=== PATIENT | female | born 1945 | race Caucasian/White ===

== ENCOUNTER → 2019-09-14 | Outpatient (CLI) | payer MEDICARE, OTHER, SELFPAY ==
[2019-09-14 12:43] LABS: D-Dimer Quantitative (DVT/PE) 1.06 FEU/ug/m (0.27-0.49)
[2019-09-14 12:49] LABS: BNP,B-Type NATRIURETIC PEPTIDE 225.6 pg/mL (0-100)
== END | disposition home or self-care (01) ==
PROVIDERS: PCP Internal Medicine; Referring Provider Nurse Practitioner; Visit Provider Nurse Practitioner
DX: R06.02 Shortness of breath (principal); R60.0 Localized edema
CPT/HCPCS: 83880; 85379

== ENCOUNTER → 2019-09-19 12:54 | Outpatient (CLI) | payer MEDICARE, OTHER, SELFPAY ==
--- NOTE | 2019-09-19 13:05 | VDLE_ITS ---
Reason For Study: Positive D-dimer, BLE edema RIGHT LEFT GSV is normal. GSV is normal. CFV is compressible, spontaneous, competent CFV is compressible, spontaneous, competent, and demonstrates pulsatile venous flow. and demonstrates pulsatile venous flow. FV is compressible, spontaneous, competent FV is compressible, spontaneous, competent and demonstrates pulsatile venous flow. and demonstrates pulsatile venous flow. POP V is compressible, spontaneous, competent POP V is compressible, spontaneous, competent and demonstrates pulsatile venous flow. and demonstrates pulsatile venous flow. T/P Trunk is compressible. T/P Trunk is compressible. PTV is compressible. PTV is compressible. RT PerV is compressible. LT PerV is compressible. Procedure Exam performed in department. A preliminary report was called and/or faxed to [place]. Interpretation Summary Deep veins of the lower extremities are bilaterally patent and compressible segmentally. There is no evidence of deep vein thrombosis on either side. Valvular competence appears intact within the proximal deep venous systems bilaterally. The great saphenous veins appear bilaterally patent and compressible segmentally. Pulsatile flow is noted in the deep venous system bilaterally, which may be indicative of elevated central venous pressure (i.e. congestive heart failure, tricuspid valve insufficiency, etc.). Clinical correlation is advised. Ordering Physician: Mirza Singh Referring Physician: Mirza Sinhg Performed By: Kristie Grace RVT
== END ==
PROVIDERS: PCP Internal Medicine; Referring Provider Internal Medicine; Visit Provider Internal Medicine
DX: R60.0 Localized edema (principal); R79.89 Other specified abnormal findings of blood chemistry
CPT/HCPCS: 93970

== ENCOUNTER 2020-07-23 11:27 | Outpatient (RCR) | payer MEDICARE, OTHER, SELFPAY | END 2020-07-23 23:59 | LOC: IMMUN 11:27 | PROVIDERS: PCP Internal Medicine; Visit Provider Family Medicine | DX: Z23 Encounter for immunization (principal) | CPT/HCPCS: 0011A; 0012A ==

== ENCOUNTER 2020-10-08 19:59 | Inpatient (IN) | payer MEDICARE, OTHER, SELFPAY ==
[2020-10-08 20:00] VITALS: BP 148/85; PULSE 49; RESP 16; TEMP 36.1; O2SAT 96; BMI 25.4
--- NOTE | 2020-10-08 20:44 | EKG12_ITS ---
Test Reason : DYSRHYTHMIA Blood Pressure : / mmHG Vent. Rate : 050 BPM Atrial Rate : 034 BPM P-R Int : 000 ms QRS Dur : 100 ms QT Int : 418 ms P-R-T Axes : 000 051 019 degrees QTc Int : 381 ms Atrial fibrillation with slow ventricular response Nonspecific ST and T wave abnormality Abnormal ECG Confirmed by IVÁN HERRERA, AB ([id number]), non linear editor JOSEPH HORAN ([id number]) on 10/09/2020 10:11:55 AM Referred By: Confirmed By:AB MINOR MD
--- NOTE | 2020-10-08 20:52 | RAD_ITS ---
INDICATION: chest pain, light headed and dizzy, bradycardia in PCP office today. EXAMINATION/TECHNIQUE: X-RAY - XR Chest 1 View COMPARISON: None. FINDINGS: The lungs are clear. The cardiomediastinal silhouette is unremarkable. No pleural effusion or pneumothorax. No acute osseous abnormalities. Degenerative changes of the right shoulder. RAD/Chest 1 View (Portable) IMPRESSION: No acute radiographic abnormalities. Electronically Signed: Ramone Díaz MD at 21:27 EDT Tel , Service support ,
[2020-10-08 20:58] LABS: Absolute Lymphocyte Count 2.16 X10^3/uL (0.83-4.51); Absolute Neutrophil Count 2.9 X10^3/uL (2.0-7.7); Basophil# 0.04 X10^3/uL; Basophil% 0.6 % (0-1); Eosinophils% 4.9 % (0-5); Hematocrit 46.1 % (37-47); Hemoglobin 14.7 g/dL (12.0-15.0); Lymphocyte # 2.16 X10^3/ul (0.83-4.51); Mean Corp Hgb Conc 31.9 g/dL (32-36); Mean Corpuscular Volume 94.1 fL (81-99); Mean Platelet Vol. 12.3 fl (6.2-12.0); Monocyte# 0.79 X10^3/uL; Monocyte% 12.8 % (0-10); NRBC Flagged by Analyzer 0 % (0-5); Neutrophil # 2.87 X10^3/uL (2.7-7.7); Neutrophil % 46.5 % (47-70); Platelet Count 116 K/mm3 (150-450); RBC Distribution Width CV 12.6 % (11.6-14.6); RBC Distribution Width SD 43.8 fl (35.1-43.9); White Blood Count 6.2 K/mm3 (4.4-11.0)
[2020-10-08 21:04] VITALS: BP 123/77; PULSE 54; RESP 18; O2SAT 95
[2020-10-08 21:11] LABS: Anion Gap 5 (5-15); BUN 18 mg/dL (7-18); BUN/Creat Ratio 14.4 RATIO (10-20); Calcium,Total 9.7 mg/dL (8.5-10.1); Chloride 107 mmol/L (98-107); Creatinine, Serum 1.25 mg/dL (0.55-1.02); EST Glomerular Filtration Rate 44 mL/min (>60); Est Glom Filt Rate - Afr Amer 54 mL/min (>60); Estimated Creatinine Clearance 33.58 ml/min; Glucose 152 mg/dL (74-106); Potassium 3.5 mmol/L (3.5-5.1); Sodium Level 140 mmol/L (136-145)
[2020-10-08 22:00] VITALS: BP 122/78; PULSE 48; RESP 16; O2SAT 96
--- NOTE | 2020-10-08 22:18 | PCM.HP.STD ---
HPI - General HPI Narrative CARMELITA KASPER, is a 75 F who presents with dizziness. Patient states that earlier today she saw her revenue specialist who informed her that she would need a residential monitor due to bradycardia and that she may need a pacemaker. Patient also states that her revenue specialist told her if she began to be dizzy to go to the nearest ER which is why patient presents tonight. EKG performed in ER shows atrial fibrillation with a heart rate 49-58. Patient denies cough, chest pain, shortness of breath, vision changes. [facility] Medical History Congestive heart failure (CHF) Diabetes Kidney disease Osteoporosis Home Medications atorvastatin [Lipitor] 10 mg PO DAILY 10/08/20 [History Last Taken Unknown] biotin 1 mg PO DAILY 10/08/20 [History Last Taken Unknown] calcium carbonate-vitamin D3 [Caltrate 600 plus D] 1 tab PO DAILY 10/08/20 [History Last Taken Unknown] dapagliflozin [Farxiga] 5 mg PO DAILY 10/08/20 [History Last Taken Unknown] furosemide 20 mg PO DAILY 10/08/20 [History Last Taken Unknown] potassium chloride 10 meq PO DAILY 10/08/20 [History Last Taken Unknown] Allergy/AdvReac Type Severity Reaction Status Date / Time amlodipine [From Norvasc] Allergy Other Verified 10/08/20 20:07 benzoyl peroxide Allergy Swelling Verified 10/08/20 20:07 cetylpyridinium chloride Allergy Other Verified 10/08/20 20:07 Sulfa (Sulfonamide Allergy Other Verified 10/08/20 20:07 Antibiotics) lisinopril AdvReac Other Verified 10/08/20 20:07 mesalamine [From Asacol] AdvReac Vomiting Verified 10/08/20 20:07 nabumetone [From Relafen] AdvReac Vomiting Verified 10/08/20 20:07 Social History Smoking Status: Never smoker ROS Constitutional Constitutional: Denies anorexia, chills, fatigue or weakness Cardiovascular Cardiovascular: Reports dizziness; Denies chest pain, claudication, palpitations or syncope Respiratory/Chest Respiratory/Chest: Denies cough, hemoptysis, shortness of breath at rest or shortness of breath with exertion Gastrointestinal Gastrointestinal: Denies abdominal pain, constipation, diarrhea, nausea or vomiting Genitourinary Genitourinary: Denies dysuria Musculoskeletal Musculoskeletal: Denies back pain, extremity pain or joint pain Integumentary Integumentary: Denies dry skin Neurologic Neurologic: Denies abnormal gait or abnormal speech Psychiatric Psychiatric: Denies anxiety or depression Endocrine Endocrinology: Denies change in body appearance Hematologic/Lymphatic Hematologic/Lymphatic: Denies easy bleeding or easy bruising Vital Signs Vital Signs Vital Signs: 10/08/20 20:00 10/08/20 20:11 10/08/20 20:47 Temperature 97.0 F L Temperature Source Temporal Pulse Rate 49 L Respiratory Rate 16 Respiratory Effort Normal Respiratory Pattern Normal Blood Pressure 148/85 H Blood Pressure Mean 106 Pulse Ox 96 Oxygen Delivery Method Room Air Room Air 10/08/20 21:04 10/08/20 22:00 Temperature Temperature Source Pulse Rate 54 L 48 L Respiratory Rate 18 16 Respiratory Effort Respiratory Pattern Blood Pressure 123/77 H 122/78 H Blood Pressure Mean 92 92 Pulse Ox 95 96 Oxygen Delivery Method Room Air Room Air Physical Exam Const alert and oriented x3 General Appearance: cooperative HEENT head/scalp atraumatic Eyes PERRL Neck supple, no JVD and thyroid normal General: trachea midline Lymph Lymphatic: no lymphadenopathy noted Resp normal respiratory effort, normal air movement and clear to auscultation bilaterally Cardio S1 normal heart sound, S2 normal heart sound and peripheral pulses 2+ throughout Rhythm: abnormal rhythm irregularly irregular (Variable heart rate 49-58) GI normal to inspection, nondistended, normoactive bowel sounds and soft to palpation Extremity normal capillary refill and no clubbing, cyanosis or edema General Extremity: no tenderness to palpation of joints or extremities Skin General Skin Exam: no breakdown and turgor normal Lesions: no lesions Rashes: no rashes Neuro CN's II-XII intact bilaterally Psych thought process normal, cooperative and affect normal Appearance: appropriate Lab / Micro Data Result Diagrams: 10/08/20 20:20 10/08/20 20:20 Labs: Laboratory Results - last 24 hr 10/08/20 10/08/20 20:20 20:20 WBC 6.2 RBC 4.90 Hgb 14.7 Hct 46.1 MCV 94.1 MCH 30.0 MCHC 31.9 L RDW Std Deviation 43.8 RDW Coeff of Young 12.6 Plt Count 116 L MPV 12.3 H Immature Gran % (Auto) 0.200 Neut % (Auto) 46.5 L Lymph % (Auto) 35.0 [place] % (Auto) 12.8 H Eos % (Auto) 4.9 Baso % (Auto) 0.6 Absolute Neuts (auto) 2.9 Absolute Lymphs (auto) 2.16 Nucleated RBC % 0 Sodium 140 Potassium 3.5 Chloride 107 Carbon Dioxide 28.0 Anion Gap 5 BUN 18 Creatinine 1.25 H Estim Creat Clear Calc 33.58 Est GFR (MDRD) Af Amer 54 L Est GFR (MDRD) Non-Af 44 L BUN/Creatinine Ratio 14.4 Glucose 152 H Calcium 9.7 Troponin I < 0.015 Radiology Impression Chest X-Ray 10/08/20 20:52 IMPRESSION: No acute radiographic abnormalities. Electronically Signed: Ramone Díaz MD at 21:27 EDT Tel , Service support , Assessment & Plan Assessment/Plan (1) Dizziness: (2) Bradycardia: (3) Chronic kidney disease, stage 3a: (4) Diabetes mellitus type 2 in nonobese: PLAN: -Admit to PCU overnight for observation and cardiac monitoring -Consult cardiology for evaluation for pacemaker -CBC and BMP in a.m. -Check magnesium and TSH now -Continue home medications for chronic diseases- -AC at bedtime blood sugars with sliding scale insulin ordered -N.p.o. at midnight -Vital signs and oxygen per protocol -Increase daily potassium chloride to 20 mEq DVT Prophylaxis-not indicated, observation status This patient was seen by Trisha Galindo NP-C under the supervision of Dr. Dr. Rick.
--- NOTE | 2020-10-08 22:19 | EX.ED.DYSGE1 ---
HPI History of Present Illness Chief Complaint: Dizziness Informant: patient Narrative Narrative: 75-year-old female presenting with dizziness. Patient states she was seen by her pet training instructor's office earlier today and was noted to have low heart rate. At that time she was asymptomatic. The plan was to set her up for a monitor at home. They advised her to come to the emergency department if she developed dizziness or syncope. She states she now feels dizzy and near syncopal. Denies syncope. She states she had mild chest pain as well. Denies other complaints. Recent Illness/Hospitalization: No [facility] Medical History (Updated 10/08/20 @ 22:[address] Yeny Kate MD) Congestive heart failure (CHF) Diabetes Kidney disease Osteoporosis Home Medications atorvastatin [Lipitor] 10 mg PO DAILY 10/08/20 [History Last Taken Unknown] biotin 1 mg PO DAILY 10/08/20 [History Last Taken Unknown] calcium carbonate-vitamin D3 [Caltrate 600 plus D] 1 tab PO DAILY 10/08/20 [History Last Taken Unknown] dapagliflozin [Farxiga] 5 mg PO DAILY 10/08/20 [History Last Taken Unknown] furosemide 20 mg PO DAILY 10/08/20 [History Last Taken Unknown] potassium chloride 10 meq PO DAILY 10/08/20 [History Last Taken Unknown] Allergy/AdvReac Type Severity Reaction Status Date / Time amlodipine [From Norvasc] Allergy Other Verified 10/08/20 20:07 benzoyl peroxide Allergy Swelling Verified 10/08/20 20:07 cetylpyridinium chloride Allergy Other Verified 10/08/20 20:07 Sulfa (Sulfonamide Allergy Other Verified 10/08/20 20:07 Antibiotics) lisinopril AdvReac Other Verified 10/08/20 20:07 mesalamine [From Asacol] AdvReac Vomiting Verified 10/08/20 20:07 nabumetone [From Relafen] AdvReac Vomiting Verified 10/08/20 20:07 Social History Smoking Status: Never smoker ROS ROS ED Constitutional Constitutional ED: Denies fever(s) Eyes Eyes: Denies change in vision ENT ENT ED: Denies rhinorrhea or sore throat Cardiovascular Cardiovascular: Reports chest pain; Denies palpitations Respiratory/Chest Respiratory/Chest: Denies cough or dyspnea Gastrointestinal Gastrointestinal: Denies abdominal pain, diarrhea, nausea or vomiting Genitourinary Genitourinary ED: Denies dysuria Musculoskeletal Musculoskeletal: Denies myalgias Integumentary Denies rash Neurologic Neurologic: Denies headache(s) Psychiatric Psychiatric: Denies suicidal thoughts EXAM Physical Exam Const Vital Signs: 10/08/20 20:00 10/08/20 20:11 10/08/20 20:47 Temperature 97.0 F L Temperature Source Temporal Pulse Rate 49 L Respiratory Rate 16 Respiratory Effort Normal Respiratory Pattern Normal Blood Pressure 148/85 H Blood Pressure Mean 106 Pulse Ox 96 Oxygen Delivery Method Room Air Room Air 10/08/20 21:04 10/08/20 22:00 Temperature Temperature Source Pulse Rate 54 L 48 L Respiratory Rate 18 16 Respiratory Effort Respiratory Pattern Blood Pressure 123/77 H 122/78 H Blood Pressure Mean 92 92 Pulse Ox 95 96 Oxygen Delivery Method Room Air Room Air Positive well nourished and well developed General Appearance ED: well developed HEENT Reports normocephalic and head/scalp atraumatic Eyes PERRL and EOMs intact bilaterally Neck supple General: Negative for tenderness Chest Wall inspection of chest normal Resp normal respiratory effort and clear to auscultation bilaterally Cardio Rate: bradycardia Rhythm: abnormal rhythm GI non-tender and non-distended Palpation: soft; Negative for guarding or rebound tenderness present no CVA tenderness Extremity normal to inspection Neuro oriented x3 Sensorium / Orientation: alert Psych mental status grossly normal MDM MDM MDM Narrative Medical decision making narrative: Patient presents with symptomatic bradycardia. She is hemodynamically stable. Discussed with hospitalist for observation. Lab Data Attestation: I reviewed the patient's lab results. Labs: Laboratory Results - last 24 hr 10/08/20 10/08/20 20:20 20:20 WBC 6.2 RBC 4.90 Hgb 14.7 Hct 46.1 MCV 94.1 MCH 30.0 MCHC 31.9 L RDW Std Deviation 43.8 RDW Coeff of Young 12.6 Plt Count 116 L MPV 12.3 H Immature Gran % (Auto) 0.200 Neut % (Auto) 46.5 L Lymph % (Auto) 35.0 [place] % (Auto) 12.8 H Eos % (Auto) 4.9 Baso % (Auto) 0.6 Absolute Neuts (auto) 2.9 Absolute Lymphs (auto) 2.16 Nucleated RBC % 0 Sodium 140 Potassium 3.5 Chloride 107 Carbon Dioxide 28.0 Anion Gap 5 BUN 18 Creatinine 1.25 H Estim Creat Clear Calc 33.58 Est GFR (MDRD) Af Amer 54 L Est GFR (MDRD) Non-Af 44 L BUN/Creatinine Ratio 14.4 Glucose 152 H Calcium 9.7 Troponin I < 0.015 Radiography Chest X-Ray - ED: 1 View, Read by ED Physician and Read by Radiologist Diagnostic Testing: Radiology Impression Chest X-Ray 10/08/20 20:52 IMPRESSION: No acute radiographic abnormalities. Electronically Signed: Ramone Díaz MD at 21:27 EDT Tel , Service support , EKG Initial EKG: Attestation: I personally reviewed and interpreted this EKG as follows: Comments: Bradycardia and irregular Prior EKG tracings: not available for review Discharge Plan Triage Chief Complaint: Dizziness ED Provider: Yeny Kate Dx/Rx/DC Orders Clinical Impression: Symptomatic bradycardia Prescriptions: No Action atorvastatin [Lipitor] 10 mg tablet 10 mg PO DAILY RF: 0 potassium chloride 10 mEq tablet extended release 10 meq PO DAILY RF: 0 furosemide 20 mg tablet 20 mg PO DAILY RF: 0 biotin 1 mg capsule 1 mg PO DAILY RF: 0 Caltrate 600 plus D 600 mg (1,500 mg)-800 unit tablet,chewable 1 tab PO DAILY RF: 0 Farxiga 5 mg tablet 5 mg PO DAILY RF: 0 Primary Care Provider: Mirza Singh Referrals: Mirza Singh MD [Primary Care Provider] - Disposition Disposition: Acute Care Hospital [facility]
[2020-10-08 23:00] VITALS: BP 108/87; PULSE 53; RESP 16; O2SAT 95
[2020-10-08 23:10] LABS: Magnesium 2.7 mg/dL (1.6-2.6); Thyroid Stim Hormone (TSH) 7.55 uIU/mL (0.358-3.74)
[2020-10-09] VITALS (14 sets, daily range): BP systolic 92–136; BP diastolic 41–79; PULSE 45–69; RESP 16–18; TEMP 36.5–36.9; O2SAT 95–99; BMI 25.0
[2020-10-09 05:38] LABS: Absolute Lymphocyte Count 2.11 X10^3/uL (0.83-4.51); Basophil# 0.04 X10^3/uL; Basophil% 0.6 % (0-1); Eosinophil# 0.31 X10^3/uL; Hematocrit 42.3 % (37-47); Hemoglobin 13.6 g/dL (12.0-15.0); Lymphocyte # 2.11 X10^3/ul (0.83-4.51); Mean Corp Hgb Conc 32.2 g/dL (32-36); Mean Corpuscular Hgb 30.2 pg (27.0-32.0); Mean Platelet Vol. 11.8 fl (6.2-12.0); Monocyte# 0.78 X10^3/uL; Monocyte% 12.6 % (0-10); NRBC Flagged by Analyzer 0 % (0-5); Neutrophil # 2.96 X10^3/uL (2.7-7.7); Neutrophil % 47.6 % (47-70); Platelet Count 106 K/mm3 (150-450); RBC Distribution Width CV 12.6 % (11.6-14.6); RBC Distribution Width SD 43.5 fl (35.1-43.9); White Blood Count 6.2 K/mm3 (4.4-11.0)
[2020-10-09 06:04] LABS: Anion Gap 6 (5-15); BUN 17 mg/dL (7-18); BUN/Creat Ratio 15.2 RATIO (10-20); Chloride 109 mmol/L (98-107); Creatinine, Serum 1.12 mg/dL (0.55-1.02); EST Glomerular Filtration Rate 50 mL/min (>60); Est Glom Filt Rate - Afr Amer 61 mL/min (>60); Estimated Creatinine Clearance 37.48 ml/min; Glucose 108 mg/dL (74-106); Potassium 3.6 mmol/L (3.5-5.1); Sodium Level 143 mmol/L (136-145)
[2020-10-09 06:41] LABS: Bedside Glucose 129 mg/dL (70-110)
[2020-10-09] MEDS: Acetaminophen 325 MG Tablet 650 MG PO (07:46)
--- NOTE | 2020-10-09 08:47 | ECHOD_ITS ---
Version 2 Reason For Study: ARRHYTHMIA Procedure This was a 2D Doppler, Color Flow transthoracic echocardiogram. Exam performed portable in patient room. Left Ventricle Normal LV size. Left ventricular systolic function is normal. The estimated ejection fraction is 60 %. No regional wall motion abnormalities noted. Right Ventricle Normal RV size. Normal systolic function. Atria Normal left atrium. Normal right atrium. Mitral Valve Normal mitral valve. Tricuspid Valve Normal tricuspid valve. Mild (1+) tricuspid valve insufficiency. Pulmonary artery systolic pressure is 33 mmHg. Aortic Valve Normal aortic valve. Pulmonic Valve Normal pulmonic valve. Great Vessels Normal aortic root. The pulmonary artery is normal size. Normal inferior vena cava. Pericardium/Pleural No pericardial effusion. MMode/2D Measurements & Calculations LVIDd: 3.9 cm IVSd: 0.97 cm Ao root diam: 2.4 cm LVIDs: 2.7 cm LVPWd: 1.1 cm RVDd: 3.1 cm FS: 30.7 % LAV(MOD-bp): 41.4 ml LA A4 area: 17.6 cm2 LA dimension(2D): 4.0 cm LAV(MOD-bp) Indexed: 24.2 ml/m2 LAV(MOD-sp2): 38.7 ml LAV(MOD-sp4): 44.0 ml RA A4 area: 15.1 cm2 Time Measurements MV dec time: 0.23 sec Doppler Measurements & Calculations MV E max marty: 104.7 cm/sec Lat Peak E' Marty: 9.3 cm/sec Med Peak E' Marty: 5.5 cm/sec MV A max marty: 71.8 cm/sec E/E' lat: 11.3 E/E' med: 19.2 MV E/A: 1.5 Ao V2 max: 148.6 cm/sec LV V1 max: 122.3 cm/sec PA V2 max: 78.1 cm/sec Ao max P.8 mmHg LV V1 max P.0 mmHg TR max marty: 274.8 cm/sec TR max P.2 mmHg ECHO/Echo Complete Interpretation Summary Normal LV size. Left ventricular systolic function is normal. The estimated ejection fraction is 60 %. Mild (1+) tricuspid valve insufficiency. Pulmonary artery systolic pressure is 33 mmHg. Structurally normal valves. Ordering Physician: Shaq Colon Referring Physician: Mirza Singh Performed By: Annie Rodriguez RDCS, RVT
--- NOTE | 2020-10-09 08:47 | PCM.CONS.C ---
Assessment & Plan Assessment/Plan (1) Symptomatic bradycardia: PLAN: Patient presents with symptomatic bradycardia. At this particular time the etiology is unclear but the patient is noted to have an elevated TSH level. I would like us to obtain further studies on the above to see whether correcting her thyroid would improve her symptomatology. I would also like to obtain an echocardiogram to assess her ventricular function. (2) Paroxysmal atrial fibrillation: PLAN: Patient is noted to have atrial fibrillation at this particular time. The exact duration is not entirely clear to me. We will try and obtain records from her carpenter labor supervisor who she saw at the [facility] to see whether this was recorder then. Further recommendations will then be made. She may eventually need a permanent pacemaker implantation and I have discussed this with her. Thank you for allowing me to participate in the care of your patient. Please don't hesitate to call if any issues arise. HPI Consult Data Date of Consult: 10/10/20 HPI Narrative HPI Narrative: CARMELITA KASPER, is a 75 F who presents to the hospital with dizziness and was noted to be bradycardia arrhythmic. She says that she has apparently had this problem for over a year and she was sent by her primary care physician to a carpenter labor supervisor in [place]. He evaluated her and set her up for a follow-up visit. Subsequently she started noticing shortness of breath. She did not have any pedal edema she was put on a diuretic and then followed up as an outpatient. However over the last few days she has noticed that she has been getting increasingly fatigue as well as short of breath. She contacted her primary care physician who asked her to go to the emergency room in the emergency room she was noted to be in atrial fibrillation with a slow ventricular response rate. She was admitted to the telemetry care unit and cardiology was consulted. [facility] Medical History Congestive heart failure (CHF) Diabetes High cholesterol History of stress test Kidney disease Osteoporosis Rheumatoid arthritis Home Medications atorvastatin [Lipitor] 10 mg PO DAILY 10/08/20 [History Last Taken Unknown] biotin 1 mg PO DAILY 10/08/20 [History Last Taken Unknown] calcium carbonate-vitamin D3 [Caltrate 600 plus D] 1 tab PO DAILY 10/08/20 [History Last Taken Unknown] dapagliflozin [Farxiga] 5 mg PO DAILY 10/08/20 [History Last Taken Unknown] furosemide 20 mg PO DAILY 10/08/20 [History Last Taken Unknown] potassium chloride 10 meq PO DAILY 10/08/20 [History Last Taken Unknown] Allergy/AdvReac Type Severity Reaction Status Date / Time amlodipine [From Norvasc] Allergy Other Verified 10/09/20 01:25 benzoyl peroxide Allergy Swelling Verified 10/09/20 01:25 cetylpyridinium chloride Allergy Other Verified 10/09/20 01:25 Sulfa (Sulfonamide Allergy Other Verified 10/09/20 01:25 Antibiotics) lisinopril AdvReac Other Verified 10/09/20 01:25 mesalamine [From Asacol] AdvReac Vomiting Verified 10/09/20 01:25 nabumetone [From Relafen] AdvReac Vomiting Verified 10/09/20 01:25 Social History Smoking Status: Never smoker ROS Constitutional Constitutional: Denies fever(s) or weight loss Eyes Eyes: Reports as per HPI ENT HEENT: Reports as per HPI Cardiovascular Cardiovascular: Reports other Respiratory/Chest Respiratory/Chest: Reports other Gastrointestinal Gastrointestinal: Denies change in bowel habits, nausea, vomiting or weight changes Genitourinary Genitourinary: Denies difficulty urinating Musculoskeletal Musculoskeletal: Denies joint stiffness or muscle weakness Integumentary Integumentary: Denies lesions Neurologic Neurologic: Reports dizziness; Denies syncope Psychiatric Psychiatric: Denies anxiety Endocrine Endocrinology: Denies excessive sweating or fatigue Hematologic/Lymphatic Hematologic/Lymphatic: Denies anemia Allergic/Immunologic Allergic/Immunologic: Denies seasonal rhinorrhea Physical Exam Const oriented x3 and healthy appearing Orientation / Consciousness: awake HEENT normocephalic Eyes PERRL and conjunctivae normal Neck supple, no JVD and no carotid bruits Chest inspection of chest normal Resp normal respiratory effort and clear to auscultation bilaterally Cardio Cardio Narrative: Irregular rate and rhythm Palpation: normal PMI Rate: regular rate Rhythm: abnormal rhythm Heart Sounds: S1 normal and S2 normal Peripheral Pulses: pulses 2+ throughout GI normal to inspection, nondistended, normoactive bowel sounds Extremity normal to inspection and no clubbing, cyanosis or edema Psych mental status grossly normal
[2020-10-09] MEDS: Empagliflozin 10 MG Tablet PO (09:10)
[2020-10-09] MEDS: Furosemide 20 MG Tablet PO (09:10)
[2020-10-09] MEDS: Insulin Lispro 100 UNIT/ML INSULN.PEN SC ×2 (11:04→21:03)
[2020-10-09 11:05] LABS: Bedside Glucose 180 mg/dL (70-110)
[2020-10-09 11:24] LABS: T4 Free Direct 1.07 ng/dL (0.76-1.46); T4 Total, Thyroxin 7.8 ug/dL (4.8-13.9)
[2020-10-09 11:25] LABS: T3 Total - Triiodothyronine 1.06 ng/mL (0.6-1.81)
--- NOTE | 2020-10-09 16:01 | PCM.PN.HOSP ---
Documented by User: James FLOWERS 10/09/20 16:09 Subjective Subjective Patient is a 75-year-old female comfortably resting in bed, alert and oriented x3. Patient denies any change or progression in symptoms this admission. Denies chest pain, shortness of breath, palpitations, fever, chills, N/V/D. Objective Data Objective Data Vital Signs: Vital Signs Temp Pulse Resp BP Pulse Ox 98.1 F 57 L 18 102/52 L 96 10/09/20 15:25 10/09/20 15:25 10/09/20 15:25 10/09/20 15:25 10/09/20 15:25 Oxygen Delivery Method Room Air Weight: 146 lb 2.664 oz Body Mass Index (BMI) 25.0 Orthostatic Vital Signs Start: 10/09/20 01:18 Freq: q24h Status: Active Protocol: Activity Type Activity Date Activity User E-Sign Co-Sign Detail Recorded Client Recorded Date Recorded By Document 10/09/20 01:18 [id number] 10/09/20 01:21 10/09/20 01:18 Orthostatic Vitals Standing -Blood Pressure (90/60-120/80) 134/79 H -Extremity Use Right Arm -Pulse Rate (60-100) 63 Sitting -Blood Pressure (90/60-120/80) 136/74 H -Extremity Use Right Arm -Pulse Rate (60-100) 64 Lying -Blood Pressure (90/60-120/80) 119/74 -Extremity Use Right Arm -Pulse Rate (60-100) 56 L Intake & Output: Intake and Output for Last 24 Hours 10/07/20 10/08/20 10/09/20 23:59 23:59 23:59 Intake Total 360 / 360 Balance 360 / 360 Lab / Micro Data Result Diagrams: 10/09/20 05:00 10/09/20 05:00 Labs: Laboratory Results - last 24 hr 10/08/20 10/08/20 10/08/20 20:20 20:20 20:20 WBC 6.2 RBC 4.90 Hgb 14.7 Hct 46.1 MCV 94.1 MCH 30.0 MCHC 31.9 L RDW Std Deviation 43.8 RDW Coeff of Young 12.6 Plt Count 116 L MPV 12.3 H Immature Gran % (Auto) 0.200 Neut % (Auto) 46.5 L Lymph % (Auto) 35.0 [place] % (Auto) 12.8 H Eos % (Auto) 4.9 Baso % (Auto) 0.6 Absolute Neuts (auto) 2.9 Absolute Lymphs (auto) 2.16 Nucleated RBC % 0 Sodium 140 Potassium 3.5 Chloride 107 Carbon Dioxide 28.0 Anion Gap 5 BUN 18 Creatinine 1.25 H Estim Creat Clear Calc 33.58 Est GFR (MDRD) Af Amer 54 L Est GFR (MDRD) Non-Af 44 L BUN/Creatinine Ratio 14.4 Glucose 152 H Calcium 9.7 Magnesium 2.7 H Troponin I < 0.015 TSH 7.55 H Free T4 Thyroxine (T4) Free T3 pg/dL Total T3 POC Glucose 10/08/20 10/09/20 10/09/20 20:20 05:00 05:00 WBC 6.2 RBC 4.50 Hgb 13.6 Hct 42.3 MCV 94.0 MCH 30.2 MCHC 32.2 RDW Std Deviation 43.5 RDW Coeff of Young 12.6 Plt Count 106 L MPV 11.8 Immature Gran % (Auto) 0.200 Neut % (Auto) 47.6 Lymph % (Auto) 34.0 [place] % (Auto) 12.6 H Eos % (Auto) 5.0 Baso % (Auto) 0.6 Absolute Neuts (auto) 3.0 Absolute Lymphs (auto) 2.11 Nucleated RBC % 0 Sodium 143 Potassium 3.6 Chloride 109 H Carbon Dioxide 28.0 Anion Gap 6 BUN 17 Creatinine 1.12 H Estim Creat Clear Calc 37.48 Est GFR (MDRD) Af Amer 61 Est GFR (MDRD) Non-Af 50 L BUN/Creatinine Ratio 15.2 Glucose 108 H Calcium 9.0 Magnesium Troponin I TSH Free T4 Thyroxine (T4) Free T3 pg/dL Total T3 1.06 POC Glucose 10/09/20 10/09/20 10/09/20 05:00 06:35 11:01 WBC RBC Hgb Hct MCV MCH MCHC RDW Std Deviation RDW Coeff of Young Plt Count MPV Immature Gran % (Auto) Neut % (Auto) Lymph % (Auto) [place] % (Auto) Eos % (Auto) Baso % (Auto) Absolute Neuts (auto) Absolute Lymphs (auto) Nucleated RBC % Sodium Potassium Chloride Carbon Dioxide Anion Gap BUN Creatinine Estim Creat Clear Calc Est GFR (MDRD) Af Amer Est GFR (MDRD) Non-Af BUN/Creatinine Ratio Glucose Calcium Magnesium Troponin I TSH Free T4 1.07 Thyroxine (T4) 7.8 Free T3 pg/dL 3.0 Total T3 POC Glucose 129 H 180 H Radiography Diagnostic Testing: Radiology Impression Chest X-Ray 10/08/20 20:52 IMPRESSION: No acute radiographic abnormalities. Electronically Signed: Ramone Díaz MD at 21:27 EDT Tel , Service support , Echocardiogram 10/09/20 08:47 Interpretation Summary Normal LV size. Left ventricular systolic function is normal. The estimated ejection fraction is 60 %. Mild (1+) tricuspid valve insufficiency. Pulmonary artery systolic pressure is 33 mmHg. Structurally normal valves. Ordering Physician: Shaq Colon Referring Physician: Mirza Singh Performed By: Annie Rodriguez, EDEN, RVT Physical Exam Const alert, oriented x3 and no apparent distress HEENT head/scalp atraumatic and moist oral mucous membranes Head and Scalp: normocephalic Eyes PERRL and EOMs intact bilaterally Neck no lymphadenopathy, supple and no JVD Resp normal respiratory effort, no retractions, no use of accessory muscles and clear to auscultation bilaterally Cardio regular rate, regular rhythm, no murmurs and no JVD GI normal to inspection, nondistended, normoactive bowel sounds, soft to palpation, non-tender and non-distended Extremity normal to inspection, full ROM and no clubbing, cyanosis or edema Skin no rashes or lesions noted, no wounds, skin turgor normal and no jaundice Neuro CN's II-XII intact bilaterally Psych affect normal Assessment & Plan Assessment/Plan (1) Dizziness: (2) Bradycardia: (3) Diabetes mellitus type 2 in nonobese: (4) Chronic kidney disease, stage 3a: (5) Paroxysmal atrial fibrillation: (6) Symptomatic bradycardia: (7) Hyperlipidemia: PLAN: See subjective for patient presentation. Cardiology consulted and requested thyroid function test. TSH elevated, however T3-T4 WNL. And lieu of normal labs and still present bradycardia. Cardiology would like patient to remain admitted and to discuss placement replacement with patient. 1) Symptomatic Bradycardia As above. Plan; remain admitted, cardiology following, +/- pacemaker placement? 2) paroxysmal atrial fibrillation Cardiology attending to obtain records from previous attraction worker at [facility]. [id number] score 5. Not on any anticoagulation at home. Plan; as above. 3) DM2 Continue GERD aunts, insulin. 4) Hyperlipemia Continue Lipitor. Patient seen by James Graham PA-C, under the supervision of Dr. Lewis. Documented by User: Dr. Mario Lewis MD 10/09/20 19:16 Objective Data Lab / Micro Data Result Diagrams: 10/09/20 05:00 10/09/20 05:00 Assessment & Plan Addt'l Comments This patient was seen in conjunction with James Graham PA-C. I have independently interviewed and examined the patient and reviewed pertinent historical, laboratory, and other data. Please refer to James Graham PA-C's note for details of this patient's presentation, findings, and recommendations. I have reviewed James Graham PA-C's note and concur with documented findings. In brief, patient is a 75 -year-old /F admitted with admitted dizziness. admitted to a monitored bed Physical Examination: GENERAL: cooperative HEENT: Atraumatic; EYES; Anicteric, Normal Conjunctiva NECK; supple, normal thyroid, RESPIRATORY: Diminished to auscultation CARDIOVASCULAR: Regular S1 S2, GI: soft, normoactive bowel sounds, : No Renal angle tenderness; EXTREMITIES: No edema, no clubbing, MUSCULOSKELETAL: no muscle waisting NEURO: Awake; no lateralizing signs. SKIN: No Rash PSYCH; Flat affect Assessment: 1. Symptomatic bradycardia 2. Abnormal TSH 3. Dyslipidemia 4. Chronic kidney disease stage III 5. Diabetes mellitus type 2 6. P. Afib Recommendations: 1. I have discussed the results of my overview and impressions with the patient 2. Options for management were reviewed Visit Charges OBSV E&M: 09224 Subsequent observation care L3
[2020-10-09 16:31] LABS: Bedside Glucose 121 mg/dL (70-110)
[2020-10-09] MEDS: Levothyroxine 25 MCG TABLET PO (17:25)
[2020-10-09] MEDS: Atorvastatin Calcium 10 MG Tablet PO (21:03)
[2020-10-09] MEDS: 0.9% Saline Lock 10 ML Syringe IV (21:04)
[2020-10-09 22:06] LABS: Bedside Glucose 150 mg/dL (70-110)
[2020-10-10] VITALS (13 sets, daily range): BP systolic 107–141; BP diastolic 46–69; PULSE 31–64; RESP 16; TEMP 36.6–36.7; O2SAT 94–99
[2020-10-10] MEDS: Levothyroxine 25 MCG TABLET PO (06:31)
[2020-10-10 07:12] LABS: Absolute Lymphocyte Count 1.92 X10^3/uL (0.83-4.51); Absolute Neutrophil Count 3.4 X10^3/uL (2.0-7.7); Basophil# 0.05 X10^3/uL; Basophil% 0.8 % (0-1); Eosinophil# 0.39 X10^3/uL; Hemoglobin 13.9 g/dL (12.0-15.0); Lymphocyte # 1.92 X10^3/ul (0.83-4.51); Lymphocyte % 29.3 % (19-41); Mean Corp Hgb Conc 32.3 g/dL (32-36); Mean Corpuscular Hgb 30.3 pg (27.0-32.0); Mean Corpuscular Volume 93.7 fL (81-99); Monocyte# 0.82 X10^3/uL; Monocyte% 12.5 % (0-10); NRBC Flagged by Analyzer 0 % (0-5); Neutrophil # 3.36 X10^3/uL (2.7-7.7); Neutrophil % 51.2 % (47-70); Platelet Count 121 K/mm3 (150-450); RBC Distribution Width CV 12.6 % (11.6-14.6); RBC Distribution Width SD 43.4 fl (35.1-43.9); Red Blood Count 4.59 M/mm3 (4.2-5.4); White Blood Count 6.6 K/mm3 (4.4-11.0)
--- NOTE | 2020-10-10 07:12 | PN.CARD_ITS ---
Subjective Subjective Patient seen and evaluated and appears to be doing well. No heart rate pauses noted Objective Data Vital Signs: Vital Signs Temp Pulse Resp BP Pulse Ox 98.1 F 62 16 111/46 L 95 10/10/20 06:29 10/10/20 06:29 10/10/20 06:29 10/10/20 06:29 10/10/20 06:29 Oxygen Delivery Method Room Air Weight: 146 lb 2.664 oz Body Mass Index (BMI) 25.0 Orthostatic Vital Signs Start: 10/09/20 01:18 Freq: q24h Status: Active Protocol: Activity Type Activity Date Activity User E-Sign Co-Sign Detail Recorded Client Recorded Date Recorded By Document 10/10/20 03:30 MY [id number] 10/10/20 03:39 MY 10/10/20 03:30 Orthostatic Vitals Standing -Blood Pressure (90/60-120/80) 141/60 H -Extremity Use Left Arm -Pulse Rate (60-100) 63 Sitting -Blood Pressure (90/60-120/80) 127/69 H -Extremity Use Left Arm -Pulse Rate (60-100) 61 Lying -Blood Pressure (90/60-120/80) 107/63 -Extremity Use Left Arm -Pulse Rate (60-100) 60 Intake & Output: Intake and Output for Last 24 Hours 10/08/20 10/09/20 10/10/20 23:59 23:59 23:59 Intake Total 1020 / 1020 120 / 120 Balance 1020 / 1020 120 / 120 Lab / Micro Data Result Diagrams: 10/09/20 05:00 10/09/20 05:00 Labs: Laboratory Results - last 24 hr 10/08/20 10/08/20 10/09/20 20:20 20:20 05:00 Magnesium 2.7 H TSH 7.55 H Free T4 1.07 Thyroxine (T4) 7.8 Free T3 pg/dL 3.0 Total T3 1.06 POC Glucose 10/09/20 10/09/20 10/09/20 11:01 16:25 21:02 Magnesium TSH Free T4 Thyroxine (T4) Free T3 pg/dL Total T3 POC Glucose 180 H 121 H 150 H Cardiology Labs/Tests 10/08/20 20:20: Magnesium 2.7 H Rhythm: EKG: ECHO: Stress Test: Cardiac Cath: PCI: CT Surgery: Holter monitor: EPS: PPM: CXR: Chest CT Scan: Radiography Diagnostic Testing: Radiology Impression Echocardiogram 10/09/20 08:47 Interpretation Summary Normal LV size. Left ventricular systolic function is normal. The estimated ejection fraction is 60 %. Mild (1+) tricuspid valve insufficiency. Pulmonary artery systolic pressure is 33 mmHg. Structurally normal valves. Ordering Physician: Shaq Colon Referring Physician: Mirza Singh Performed By: Annie Rodriguez, EDEN, RVT Physical Exam Const oriented x3 and healthy appearing Orientation / Consciousness: awake HEENT normocephalic Eyes PERRL and conjunctivae normal Neck supple, no JVD and no carotid bruits Chest inspection of chest normal Resp normal respiratory effort and clear to auscultation bilaterally Cardio Cardio Narrative: Irregular rate and rhythm Palpation: normal PMI Rate: regular rate Rhythm: regular rhythm Heart Sounds: S1 normal and S2 normal Peripheral Pulses: pulses 2+ throughout GI normal to inspection, nondistended, normoactive bowel sounds Extremity normal to inspection and no clubbing, cyanosis or edema Psych mental status grossly normal Assessment & Plan Assessment/Plan (1) Symptomatic bradycardia: PLAN: Patient presents with symptomatic bradycardia. At this particular time the etiology is unclear but the patient is noted to have an elevated TSH level. I would like us to obtain further studies on the above to see whether correcting her thyroid would improve her symptomatology. * Echocardiogram demonstrated preserved left ventricular systolic function. * I would like to assess her chronotropic competence by putting her on a treadmill obtaining a regular stress test to see what happens to her heart rate. If her heart rate improves then I would suggest discharging her for a 24-hour Holter monitor and assess as an outpatient to see whether she is a candidate for a permanent pacemaker. (2) Paroxysmal atrial fibrillation: PLAN: Patient is noted to have atrial fibrillation at this particular time. She has also had periods of sinus rhythm. The exact duration is not entirely clear to me. We will try and obtain records from her vulnerability assessment analyst who she saw at the [facility] to see whether this was recorder then. Further recommendations will then be made. She may eventually need a permanent pacemaker implantation and I have discussed this with her. At this time however I think this is premature. We will hold off on anticoagulation for now. Thank you for allowing me to participate in the care of your patient. Please don't hesitate to call if any issues arise.
[2020-10-10 07:38] LABS: Anion Gap 4 (5-15); BUN 24 mg/dL (7-18); BUN/Creat Ratio 18.6 RATIO (10-20); Calcium,Total 9.3 mg/dL (8.5-10.1); Chloride 108 mmol/L (98-107); Creatinine, Serum 1.29 mg/dL (0.55-1.02); EST Glomerular Filtration Rate 43 mL/min (>60); Est Glom Filt Rate - Afr Amer 52 mL/min (>60); Estimated Creatinine Clearance 32.54 ml/min; Glucose 118 mg/dL (74-106); Sodium Level 139 mmol/L (136-145)
[2020-10-10] MEDS: Potassium Chloride Oral Tablet 20 MEQ PO (08:01)
[2020-10-10] MEDS: Empagliflozin 10 MG Tablet PO (08:01)
[2020-10-10] MEDS: Furosemide 20 MG Tablet PO (08:01)
--- NOTE | 2020-10-10 11:05 | STRESSREP ---
Stress Test Report Exercise stress test. 75-year-old lady with a history of bradycardia. Resting EKG demonstrates sinus bradycardia with a rate of 52 bpm. Resting blood pressures 114/62 mmHg. The patient exercised according to the regular Neymar protocol for a total duration of 3 minutes and 28 seconds. The maximum heart rate attained was 100 bpm which was 68% of maximum predicted heart rate the maximum workload was 5.1 metabolic equivalent. The patient maintained sinus rhythm throughout the recording. At rest there were no ST or T wave changes noted to suggest ischemia and at peak exercise nonspecific ST changes were noted with did not meet the criteria for ischemia. No clinical angina was noted the test was terminated due to shortness of breath and dizziness. The peak blood pressure was 164/76 mmHg. Conclusion: No significant chronotropic incompetence noted. Sinus bradycardia noted with mild increase in heart rate with exercise.
--- NOTE | 2020-10-10 11:10 | CASEMGMT ---
LEW VALDIVIA Assessment: Face to Face with pt for initial transition planning/care coordination assessment. RN SHEA introduced self and role at [facility], pt voices understanding and consents to assessment. Pt is A/O x4 and answers all questions appropriately at this time. Pt lying in bed in no distress. Care providers, pharmacy, and demographics verified/updated. Admitting Dx: Dizziness PCP: Francisco Specialists: Reena,cardio; zenon Ivey Preferred Pharmacy: [facility] Insurance: WILFRIDO, [employer] Prescription Benefit: yes LW/HPOA: Pt has LW/DPOA on file at [facility]. DPOA is Bolivar Kate LNOK: Bol[place]ar Kate, Living Arrangements: Pt lives with and 14 year old granddtr in a single story home with 1 step to enter. Pt reports she is I in ADL's and denies concerns at home. Transportation: Pt drives self and denies issues with transportation. DME/HHC/SNF: Pt has a cane, walker but does not use. Denies previous HHC or SNF stays. Pt states no concerns with going home at time of dc. Pt states no further concerns/needs. CM to follow. Advised pt to ask CM if any further question/concerns/needs arise, voices understanding. Pt Goal: Home Plan: Home with family support.
--- NOTE | 2020-10-10 11:22 | PCM.DC ---
Discharge Instructions Diet Discharge Diet: No restrictions Activity Discharge Activity: Return to Normal Activity Follow Up Care Please Follow Up With: Dr. Garcia When: In one week. Test Results: Test results from this visit will be discussed in further detail at your follow-up appointment, if applicable. Discharge Plan Admission Admit Date/Time: 10/09/20 15:56 Primary Reason for Your Visit: Symptomatic bradycardia Attending Provider: Mario Lewis Primary Care Provider: Mirza Singh Consulting Providers: Shaq Colon Discharge Orders/Prescriptions Prescriptions: New levothyroxine 25 mcg capsule 25 mcg PO DAILY Qty: 7 RF: 0 Continued atorvastatin [Lipitor] 10 mg tablet 10 mg PO DAILY RF: 0 potassium chloride 10 mEq tablet extended release 10 meq PO DAILY RF: 0 furosemide 20 mg tablet 20 mg PO DAILY RF: 0 biotin 1 mg capsule 1 mg PO DAILY RF: 0 Caltrate 600 plus D 600 mg (1,500 mg)-800 unit tablet,chewable 1 tab PO DAILY RF: 0 Farxiga 5 mg tablet 5 mg PO DAILY RF: 0 Other Ambulatory Orders: Cardiac Holter Monitor, Set-Up (Routine) Location: None Selected Ordered By: James FLOWERS Cardiac Holter Monitor, Set-Up (Routine) Location: None Selected Ordered By: James FLOWERS Referrals / Follow Up: Shaq Colon MD [STAFF PHYSICIAN] - Mirza Singh MD [Primary Care Provider] - Disposition Disposition (needs filled in before D/C Order can be placed): Home, self care
[2020-10-10 11:37] LABS: Bedside Glucose 125 mg/dL (70-110)
[2020-10-10 11:37] LABS: Bedside Glucose 127 mg/dL (70-110)
--- NOTE | 2020-10-10 11:37 | DS.PCM_ITS ---
Documented by User: James FLOWERS 10/10/20 11:45 Providers Date of Admission: 10/09/20 Primary Care Physician: Dr. 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 she may need pacemaker Reason For Visit: DIZINESS Diagnosis Discharge Diagnosis (1) Symptomatic bradycardia: Status: Acute Code(s): R00.1 - Bradycardia, unspecified (2) Paroxysmal atrial fibrillation: Status: Acute Code(s): I48.0 - Paroxysmal atrial fibrillation Medications at Discharge Home Medications Caltrate 600 plus D 1 tab PO DAILY 10/08/20 Farxiga 5 mg PO DAILY 10/08/20 atorvastatin [Lipitor] 10 mg PO DAILY 10/08/20 biotin 1 mg PO DAILY 10/08/20 furosemide 20 mg PO DAILY 10/08/20 potassium chloride 10 meq PO DAILY 10/08/20 levothyroxine 25 mcg PO DAILY #7 cap 10/10/20 Hospital Course Procedures Nuclear stress test Summary of Care Provided Minutes Spent on Discharge: 35 Hospital Course: See subjective for patient presentation. Stress test completed today demonstrated no significant chronotropic incompetence. Darlene Fishman recommends 24hour holter monitor, continuation of Levothyroxine for high TSH and follow up with him in one week for further consideration of permanent pacemaker placement. Patient to be discharged today. 1) Symptomatic Bradycardia As above. Plan; remain admitted, cardiology following, +/- pacemaker placement? 2) paroxysmal atrial fibrillation [id number] score 5, hold on anticoagulation until pacemaker decision has been made, per cardiology. Plan; as above. 3) DM2 Continue GERD aunts, insulin. 4) Hyperlipemia Continue Lipitor. Patient seen by James Graham PA-C, under the supervision of Dr. Lewis. Physical Exam Narrative Patient is a 75-year-old female comfortably resting in bed, alert and oriented x3. Patient reports no change or progression of symptoms from yesterday. Denies chest pain, shortness of breath, palpitations, fever, chills, N/V/D or problems with urination/defecation. Const alert, oriented x3 and no apparent distress HEENT normocephalic, head/scalp atraumatic and hearing grossly normal bilaterally Eyes PERRL, EOMs intact bilaterally and conjunctivae normal Neck no lymphadenopathy, supple and no JVD Resp normal respiratory effort, no use of accessory muscles and clear to auscultation bilaterally Cardio regular rate, regular rhythm, no murmurs and no JVD GI normal to inspection, nondistended, normoactive bowel sounds, soft to palpation, non-tender and non-distended Extremity normal to inspection Skin no rashes or lesions noted, no wounds and no jaundice Neuro CN's II-XII intact bilaterally Psych affect normal ABG / Lab / Microbiology Data Result Diagrams: 10/10/20 06:15 10/10/20 06:15 Laboratory: Laboratory Results - last 24 hr 10/09/20 10/09/20 10/10/20 16:25 21:02 06:15 WBC 6.6 RBC 4.59 Hgb 13.9 Hct 43.0 MCV 93.7 MCH 30.3 MCHC 32.3 RDW Std Deviation 43.4 RDW Coeff of Young 12.6 Plt Count 121 L MPV 12.0 Immature Gran % (Auto) 0.200 Neut % (Auto) 51.2 Lymph % (Auto) 29.3 [place] % (Auto) 12.5 H Eos % (Auto) 6.0 H Baso % (Auto) 0.8 Absolute Neuts (auto) 3.4 Absolute Lymphs (auto) 1.92 Nucleated RBC % 0 Sodium Potassium Chloride Carbon Dioxide Anion Gap BUN Creatinine Estim Creat Clear Calc Est GFR (MDRD) Af Amer Est GFR (MDRD) Non-Af BUN/Creatinine Ratio Glucose Calcium POC Glucose 121 H 150 H 10/10/20 10/10/20 10/10/20 06:15 06:31 07:36 WBC RBC Hgb Hct MCV MCH MCHC RDW Std Deviation RDW Coeff of Young Plt Count MPV Immature Gran % (Auto) Neut % (Auto) Lymph % (Auto) [place] % (Auto) Eos % (Auto) Baso % (Auto) Absolute Neuts (auto) Absolute Lymphs (auto) Nucleated RBC % Sodium 139 Potassium 4.0 Chloride 108 H Carbon Dioxide 27.0 Anion Gap 4 L BUN 24 H Creatinine 1.29 H Estim Creat Clear Calc 32.54 Est GFR (MDRD) Af Amer 52 L Est GFR (MDRD) Non-Af 43 L BUN/Creatinine Ratio 18.6 Glucose 118 H Calcium 9.3 POC Glucose 127 H 125 H Radiography Diagnostic Testing: Radiology Impression Echocardiogram 10/09/20 08:47 Interpretation Summary Normal LV size. Left ventricular systolic function is normal. The estimated ejection fraction is 60 %. Mild (1+) tricuspid valve insufficiency. Pulmonary artery systolic pressure is 33 mmHg. Structurally normal valves. Ordering Physician: Shaq Colon Referring Physician: Mirza Singh Performed By: Annie Rodriguez, EDEN, RVT D/C Instructions Discharge Diet: No restrictions Discharge Activity: Return to Normal Activity Please Follow Up With: Dr. Garcia When: In one week. Meaningful Use Info Meaningful Use Diagnoses (Choose all that apply): None applicable Discharge Plan Admission Admit Date/Time: 10/09/20 15:56 Primary Reason for Your Visit: Symptomatic bradycardia Attending Provider: Mario Lewis Primary Care Provider: Mirza Singh Consulting Providers: Shaq Colon Discharge Orders/Prescriptions Prescriptions: New levothyroxine 25 mcg capsule 25 mcg PO DAILY Qty: 7 RF: 0 Continued atorvastatin [Lipitor] 10 mg tablet 10 mg PO DAILY RF: 0 potassium chloride 10 mEq tablet extended release 10 meq PO DAILY RF: 0 furosemide 20 mg tablet 20 mg PO DAILY RF: 0 biotin 1 mg capsule 1 mg PO DAILY RF: 0 Caltrate 600 plus D 600 mg (1,500 mg)-800 unit tablet,chewable 1 tab PO DAILY RF: 0 Farxiga 5 mg tablet 5 mg PO DAILY RF: 0 Other Ambulatory Orders: Cardiac Holter Monitor, Set-Up (Routine) Location: None Selected Ordered By: James FLOWERS Cardiac Holter Monitor, Set-Up (Routine) Location: None Selected Ordered By: James FLOWERS Referrals / Follow Up: Shaq Colon MD [STAFF PHYSICIAN] - Mirza Singh MD [Primary Care Provider] - Disposition Disposition (needs filled in before D/C Order can be placed): Home, self care Documented by User: Dr. Mario Lewis MD 10/10/20 14:26 Providers Date of Admission: 10/09/20 Reason For Visit: DIZINESS Medications at Discharge Home Medications Caltrate 600 plus D 1 tab PO DAILY 10/08/20 Farxiga 5 mg PO DAILY 10/08/20 atorvastatin [Lipitor] 10 mg PO DAILY 10/08/20 biotin 1 mg PO DAILY 10/08/20 furosemide 20 mg PO DAILY 10/08/20 potassium chloride 10 meq PO DAILY 10/08/20 levothyroxine 25 mcg PO DAILY #7 cap 10/10/20 Hospital Course Summary of Care Provided Minutes Spent on Discharge: 35 Hospital Course: This patient was seen in conjunction with James Graham PA-C.? I have independently interviewed and examined the patient and reviewed pertinent historical, laboratory, and other data.? Please refer to James Graham PA-C's? note for details of this patient's presentation, findings, and recommendations.? I have reviewed ? James Graham PA-C's? note and concur? with documented findings. In brief, patient is a 75? -year-old /F admitted with admitted dizziness. admitted to a monitored bed Assessment: 1.? Symptomatic bradycardia 2.? Abnormal TSH 3.? Dyslipidemia 4.? Chronic kidney disease stage III 5.? Diabetes mellitus type 2 6. P. Afib Hospital course: As documented above ABG / Lab / Microbiology Data Result Diagrams: 10/10/20 06:15 10/10/20 06:15 Discharge Plan Admission Admit Date/Time: 10/09/20 15:56 Primary Reason for Your Visit: Symptomatic bradycardia Attending Provider: Mario Lewis Primary Care Provider: Mirza Singh Consulting Providers: Shaq Colon Discharge Orders/Prescriptions Prescriptions: New levothyroxine 25 mcg capsule 25 mcg PO DAILY Qty: 7 RF: 0 Continued atorvastatin [Lipitor] 10 mg tablet 10 mg PO DAILY RF: 0 potassium chloride 10 mEq tablet extended release 10 meq PO DAILY RF: 0 furosemide 20 mg tablet 20 mg PO DAILY RF: 0 biotin 1 mg capsule 1 mg PO DAILY RF: 0 Caltrate 600 plus D 600 mg (1,500 mg)-800 unit tablet,chewable 1 tab PO DAILY RF: 0 Farxiga 5 mg tablet 5 mg PO DAILY RF: 0 Other Ambulatory Orders: Cardiac Holter Monitor, Set-Up (Routine) Location: None Selected Ordered By: James FLOWERS Cardiac Holter Monitor, Set-Up (Routine) Location: None Selected Ordered By: James FLOWERS Referrals / Follow Up: Shaq Colon MD [STAFF PHYSICIAN] - Mirza Singh MD [Primary Care Provider] - Disposition Disposition (needs filled in before D/C Order can be placed): Home, self care Visit Charges Inpatient E&M: 01151 Disch Hosp
[2020-10-10 11:46] LABS: Bedside Glucose 206 mg/dL (70-110)
[2020-10-10] MEDS: 0.9% Saline Lock 10 ML Syringe IV (12:36)
== END 2020-10-10 13:25 | disposition home or self-care (01) | DRG 310 ==
LOC: ED 22:26 → PCU 10-09 02:14
PROVIDERS: Nurse Practitioner Family; Physician Assistant; Admitting Provider Family Medicine; Emergency Provider Emergency Medicine; PCP Internal Medicine; Visit Provider Internal Medicine
DX: I48.0 Paroxysmal atrial fibrillation (principal); R00.1 Bradycardia, unspecified; I50.9 Heart failure, unspecified; E11.22 Type 2 diabetes mellitus with diabetic chronic kidney disease; N18.31 Chronic kidney disease, stage 3a; M81.0 Age-related osteoporosis without current pathological fracture; M06.9 Rheumatoid arthritis, unspecified; Z79.899 Other long term (current) drug therapy; E78.5 Hyperlipidemia, unspecified; K21.9 Gastro-esophageal reflux disease without esophagitis; R94.6 Abnormal results of thyroid function studies
CPT/HCPCS: 36415; 71045; 80048; 82962; 83735; 84436; 84439; 84443; 84480; 84481; 84484; 85025; 93005; 93017; 93306; 99285; A4216

== ENCOUNTER → 2020-10-10 11:34 | Outpatient (CLI) | payer MEDICARE, OTHER, SELFPAY ==
[2020-10-09 01:16] VITALS: BMI 25.0
== END ==
PROVIDERS: PCP Internal Medicine; Referring Provider Physician Assistant; Visit Provider Physician Assistant
DX: R00.1 Bradycardia, unspecified (principal)
CPT/HCPCS: 93225; 93226

== ENCOUNTER 2020-11-06 10:37 | Day surgery (SDC) | payer MEDICARE, OTHER, SELFPAY ==
[2020-10-09 01:16] VITALS: BMI 25.0
[2020-10-17 13:47] VITALS: BMI 25.4
[2020-10-23 11:41] LABS: Mucous, Urine 0 SEEN /hpf (<or=2+)
[2020-10-23 12:44] LABS: Hematocrit 44.1 % (37-47); Hemoglobin 14.2 g/dL (12.0-15.0); Mean Corp Hgb Conc 32.2 g/dL (32-36); Mean Corpuscular Hgb 30.2 pg (27.0-32.0); Mean Corpuscular Volume 93.8 fL (81-99); Mean Platelet Vol. 12.6 fl (6.2-12.0); Platelet Count 118 K/mm3 (150-450); RBC Distribution Width CV 12.3 % (11.6-14.6); RBC Distribution Width SD 42.8 fl (35.1-43.9); White Blood Count 5.7 K/mm3 (4.4-11.0)
[2020-10-23 12:54] LABS: Color, Urine Yellow (Yellow); Glucose, Dipstick 1000 mg/dl (Normal); Ketone-Dipstick Negative (Negative); Leukocyte Esterase-Dipstick 500 /ul (Negative); Nitrite-Dipstick Negative (Negative); Occult Blood-Urine 10 /ul (Negative); Protein-Dipstick 15 mg/dl (Negative); Specific Gravity, Urine 1.015 (1.002-1.030); Urine Bilirubin Dipstick Negative (Negative); Urine Clarity Sl. Cloudy (Clear); Urine Urobilinogen Normal (Normal)
[2020-10-23 13:06] LABS: Bacteria 1+ /hpf (None Seen); Red Blood Cells-Urine 0-5 SEEN /hpf (0-5); Squamous Epithelial Cells - UA 0-5 SEEN /hpf (5-10); White Blood Cells 10-25 SEEN /hpf (0-5)
[2020-10-23 13:07] LABS: Anion Gap 4 (5-15); BUN 20 mg/dL (7-18); BUN/Creat Ratio 16.7 RATIO (10-20); Calcium,Total 9.6 mg/dL (8.5-10.1); Chloride 108 mmol/L (98-107); EST Glomerular Filtration Rate 46 mL/min (>60); Est Glom Filt Rate - Afr Amer 56 mL/min (>60); Glucose 147 mg/dL (74-106); Potassium 3.7 mmol/L (3.5-5.1); Sodium Level 142 mmol/L (136-145)
[2020-11-05 12:45] VITALS: BMI 25.4
[2020-11-06] VITALS (10 sets, daily range): BP systolic 115–141; BP diastolic 56–80; PULSE 59–67; RESP 16–20; TEMP 36.6–36.7; O2SAT 94–98
[2020-11-06] MEDS: Cefazolin 2 GM in 0.9% Normal Saline 100 ML IV (11:48)
--- NOTE | 2020-11-06 13:09 | CL.IE_ITS ---
Patient: CARMELITA KASPER V Study Date: 11/06/2020 Performing: Shaq Colon MD : 1945 Age: 75 Gender: female PROCEDURES PERFORMED IA60-SFOIKBI PACER INSERT+DUAL LEADS INDICATIONS Sinoatrial node dysfunction/Sick sinus syndrome PROCEDURE DETAILS The patient was brought to the Catheterization Lab in the postabsorptive nonsedated state. Infor med consent was obtained prior to the procedure. Local anesthetic was given subcutaneously to the le ft subclavian region with Lidocaine 2%. Access was achieved and a guidewire was advanced into the lef t subclavian vein. Incision was made to the left subclavicular area. A peel-away sheath was inserted into the left subclavian vein. PPM ventricular lead was inserted / positioned to right ventricular ap ex. PPM ventricular lead testing performed. PPM ventricular lead testing performed. A peel-away sheat h was inserted into the left subclavian vein. PPM atrial lead was inserted / positioned to the right atrial appendage. The Ventricular PM lead sutured in place with 2-0 Silk. The Atrial lead sutured in place with 2-0 Silk. Device pocket was irrigated with antibiotic. PPM generator was attached to the l ead(s) and inserted into the pocket. Subcutaneous closure was completed with 3-0 Vicryl. Skin closure was completed with 4-0 Vicryl. Steri-strips applied to left subclavicular incision. Inst rument, sponge, and needle counts were noted to be normal. The patient tolerated the procedure well. Estimated Blood Loss: 10 ml's IMPLANTED / EX-PLANTED DEVICES IMPLANTED DEVICE(S): PPM Ventricular lead - [employer]: [employer], Model # 7841 , Serial # [id number] PPM Atrial lead - [employer]: [employer], Model # 7840 , Serial # [id number] PPM Generator - [employer]: [employer], Model # L111 , Serial # [id number] DEVICE PARAMETERS ATRIAL LEAD PARAMETERS: P wave- 1.7 (mV) Current- 4.1 (mA) threshold- 2.2 (V) impedence- 537 (OHMS) 10V test, no diaphragmatic capture VENTRICULAR LEAD PARAMETERS: R wave- 13.7 (mV) Current- 0.7 (mA) threshold- 0.5 (V) impedence- 817 (OHMS) 10V test, no diaphragmatic capture DEVICE PARAMETERS: Mode- DDD Lower rate- 60 Upper rate- 120 CONCLUSIONS / RECOMMENDATIONS Device Conclusions: Successful implantation of a dual chamber pacemaker Device Recommendations: Follow up with Primary Care Physician PROCEDURE MEDICATIONS Fentanyl 50 mcg IV Versed 1 mg IV Versed 1 mg IV Oxygen: 2 L/min via nasal cannula Antibiotic given in appropriate timeframe. Ancef 2 Gm IV @ 11/06/2020 11:48:39 Signed By Shaq Colon MD On 11/06/2020 13:09:06 Shaq Colon MD
[2020-11-06] MEDS: Acetaminophen 325 MG Tablet PO (15:03)
[2020-11-07 00:15] VITALS: BP 104/48; PULSE 60; RESP 16; TEMP 36.4; O2SAT 96
[2020-11-07 03:10] VITALS: PULSE 62
[2020-11-07] MEDS: Acetaminophen 325 MG Tablet PO (03:58)
[2020-11-07 04:05] VITALS: BP 121/56; PULSE 60; RESP 16; TEMP 36.6; O2SAT 96
--- NOTE | 2020-11-07 05:55 | RAD_ITS ---
HISTORY: Post permanent ICD pacer placement. Comparison study is from October 08, 2020 Findings: 2 views of the chest: The left chest wall dual lead cardiac pacer has been placed from a left subclavian approach. Leads appear to be adequately positioned. No pneumothorax is perceived. Lungs are adequately expanded. Heart is not enlarged. No effusions are perceived. RAD/Chest 3 View IMPRESSION: Adequate position of left subclavian approach cardiac pacer leads without evidence of complications from placement. at 0521 Reported and signed by: Hayden Luo MD Electronically Signed: Hayden Luo MD at 5:20 EDT Tel , Service support ,
[2020-11-07 06:55] VITALS: PULSE 60
--- NOTE | 2020-11-07 07:21 | PCM.PN.CARD ---
Subjective Subjective Patient seen and evaluated. Had uneventful night. Objective Data Vital Signs: Vital Signs Temp Pulse Resp BP Pulse Ox 97.8 F 60 16 121/56 H 96 11/07/20 04:05 11/07/20 06:55 11/07/20 04:05 11/07/20 04:05 11/07/20 04:05 Oxygen Delivery Method Room Air Weight: 148 lb Body Mass Index (BMI) 25.4 Intake & Output: Intake and Output for Last 24 Hours 11/05/20 11/06/20 11/07/20 23:59 23:59 23:59 Intake Total 350 / 350 240 / 240 Output Total 400 / 400 Balance 148 / 148 -160 / -160 Lab / Micro Data Result Diagrams: 10/23/20 11:41 10/23/20 11:41 Cardiology Labs/Tests Rhythm: EKG: ECHO: Stress Test: Cardiac Cath: PCI: CT Surgery: Holter monitor: EPS: PPM: CXR: Chest CT Scan: Radiography Diagnostic Testing: Radiology Impression Chest X-Ray 11/07/20 05:55 IMPRESSION: Adequate position of left subclavian approach cardiac pacer leads without evidence of complications from placement. at 0521 Reported and signed by: Hayden Luo MD Electronically Signed: Hayden Luo MD at 5:20 EDT Tel , Service support , Physical Exam Const oriented x3 and healthy appearing Orientation / Consciousness: awake HEENT normocephalic Eyes PERRL and conjunctivae normal Neck supple, no JVD and no carotid bruits Chest inspection of chest normal Resp normal respiratory effort and clear to auscultation bilaterally Cardio Palpation: normal PMI Rate: regular rate Rhythm: regular rhythm Heart Sounds: S1 normal and S2 normal Peripheral Pulses: pulses 2+ throughout GI normal to inspection, nondistended, normoactive bowel sounds Extremity normal to inspection and no clubbing, cyanosis or edema Psych mental status grossly normal Assessment & Plan Assessment/Plan (1) History of permanent cardiac pacemaker placement: PLAN: She is status post permanent pacemaker implantation. Chest x-ray is unremarkable. Pacer will be checked this morning and if normal patient will be discharged for outpatient follow-up in the pacer clinic.
[2020-11-07 08:03] VITALS: BP 110/69; PULSE 60; RESP 16; TEMP 36.8; O2SAT 97
--- NOTE | 2020-11-07 08:46 | PCM.DC ---
Discharge Instructions Diet Discharge Diet: No restrictions (as you feel able. No excessive stretching. No lifting your arm over your head (keep elbow below shoulder level) until seen for your pacemaker check. Do not lift your elbow away from your side until you are seen for your first visit. Keep the arm sling on if it helps remind you not to lift your arm.) Activity Additional Activity Instructions:: May shower or bathe on [day 3]. Do not scrub the incision or soak in the tub. Just wash with soap and let the water run over the incision. Gently pat dry with towel. Medications: Take your pain medication as directed. Refer to your discharge instruction sheet for a list of medications you are to take. Dressing / Incision Call your doctor if your incision/area has: Continuous Slow Oozing, Sudden Increased Bleeding, Increased Pain/ Swelling, Increased Redness, Foul Smelling Discharge and Swelling at the incision site Call your doctor if you observe: Fever of 101 or Higher, Shortness of breath, Dizziness, Fainting spells, Swelling in the ankles, Chest pain, Prolonged hiccupping and Increased palpitations (irregular heartbeat) Remove Dressing in: 3 days Additional Dressing/Incision Instructions:: When dressing is removed, wash and dry incision. Keep covered with a light bandage if it is rubbing against your clothing. Do not cover the incision with an airtight bandage. Change the bandage daily. Do not remove steri strips. The strips will fall off on their own. Follow Up Care Please Follow Up With: Shaq Colon MD When: Please make a follow-up in pacemaker clinic November 12 at 10 AM with [place]. Test Results: Test results from this visit will be discussed in further detail at your follow-up appointment, if applicable. Discharge Plan Admission Attending Provider: Shaq Colon Primary Care Provider: Mirza Singh Discharge Orders/Prescriptions Prescriptions: Continued potassium chloride 10 mEq tablet extended release 10 meq PO DAILY RF: 0 furosemide 20 mg tablet 20 mg PO DAILY RF: 0 biotin 1 mg capsule 1 mg PO DAILY RF: 0 Caltrate 600 plus D 600 mg (1,500 mg)-800 unit tablet,chewable 1 tab PO DAILY RF: 0 Farxiga 5 mg tablet 5 mg PO DAILY RF: 0 atorvastatin [Lipitor] 10 mg tablet 5 mg PO DAILY RF: 0 Referrals / Follow Up: Mirza Singh MD [Primary Care Provider] - Disposition Disposition (needs filled in before D/C Order can be placed): Home, self care
--- NOTE | 2020-11-07 09:30 | PHA.DC.MR ---
Pharmacy Service has performed discharge medication reconciliation for this patient. The patient's discharge medication list was reviewed for discrepancies and discrepancies were resolved. Home Medications Caltrate 600 plus D 1 tab PO DAILY 10/08/20 Farxiga 5 mg PO DAILY 10/08/20 biotin 1 mg PO DAILY 10/08/20 furosemide 20 mg PO DAILY 10/08/20 potassium chloride 10 meq PO DAILY 10/08/20 atorvastatin 10 mg tablet 5 mg PO DAILY tab 10/17/20
== END 2020-11-07 08:46 | disposition home or self-care (01) ==
LOC: CLSP 10:39 → PCU 11-07 08:46
PROVIDERS: PCP Internal Medicine; Referring Provider Internal Medicine Cardiovascular Disease; Visit Provider Internal Medicine Cardiovascular Disease
DX: I49.5 Sick sinus syndrome (principal); Z95.0 Presence of cardiac pacemaker; E78.5 Hyperlipidemia, unspecified; I50.9 Heart failure, unspecified; E11.22 Type 2 diabetes mellitus with diabetic chronic kidney disease; N18.31 Chronic kidney disease, stage 3a; Z79.84 Long term (current) use of oral hypoglycemic drugs; Z79.899 Other long term (current) drug therapy; Z68.25 Body mass index [BMI] 25.0-25.9, adult
CPT/HCPCS: 33208; 36415; 71047; 80048; 81001; 85027; 85610; 99152; 99153; J7040; J7050; C1894

== ENCOUNTER 2020-11-29 07:05 | Day surgery (SDC) | payer MEDICARE, OTHER, SELFPAY ==
[2020-11-05 12:45] VITALS: BMI 25.4
--- NOTE | 2020-11-20 11:10 | RAD_ITS ---
HISTORY: PPM implant on 10/23/[address] Castaneda EXAMINATION/TECHNIQUE: XR Chest 2 Views: COMPARISON: November 07, 2020 FINDINGS: LINES/DEVICES: Dual lead left chest cardiac pacer with leads projecting over the right atrium and right ventricle. LUNGS: No airspace consolidation. Unremarkable interstitium. No effusion. No pneumothorax. MEDIASTINUM: No cardiomegaly. MUSCULOSKELETAL: No acute osseous finding. Grade 1 retrolisthesis at the thoracolumbar junction. RAD/Chest PA and Lateral IMPRESSION: No evidence of acute cardiopulmonary process. at 0510 Reported and signed by: Napoleon Johnson MD Electronically Signed: Napoleon Johnson MD at 5:08 EDT Tel , Service support ,
[2020-11-20 11:34] LABS: Hematocrit 47.8 % (37-47); Hemoglobin 15.2 g/dL (12.0-15.0); Mean Corp Hgb Conc 31.8 g/dL (32-36); Mean Corpuscular Hgb 30.1 pg (27.0-32.0); Mean Corpuscular Volume 94.7 fL (81-99); Mean Platelet Vol. 11.2 fl (6.2-12.0); Platelet Count 145 K/mm3 (150-450); RBC Distribution Width CV 12.6 % (11.6-14.6); RBC Distribution Width SD 44.1 fl (35.1-43.9); Red Blood Count 5.05 M/mm3 (4.2-5.4); White Blood Count 7.1 K/mm3 (4.4-11.0)
[2020-11-20 12:08] LABS: Anion Gap 5 (5-15); BUN 19 mg/dL (7-18); BUN/Creat Ratio 15.3 RATIO (10-20); Calcium,Total 9.6 mg/dL (8.5-10.1); Chloride 103 mmol/L (98-107); Creatinine, Serum 1.24 mg/dL (0.55-1.02); EST Glomerular Filtration Rate 45 mL/min (>60); Est Glom Filt Rate - Afr Amer 54 mL/min (>60); Glucose 87 mg/dL (74-106); Potassium 4.1 mmol/L (3.5-5.1); Sodium Level 139 mmol/L (136-145)
[2020-11-28 08:45] VITALS: BMI 25.4
--- NOTE | 2020-11-29 08:33 | CL.D_ITS ---
Patient Name: CARMELITA KASPER V Study Date: 11/29/2020 Performing: Shaq Colon MD Ht: 64 inches 163 cm : 1945 Wt: 147.9 lbs 67 kg Age: 75 Gender: female BSA: 1.72 PROCEDURE(S) PERFORMED [id number]/COR/LV CLINICAL PROFILE AND INDICATIONS Indications: Suspected CAD Heart Failure: None Stress/Imaging Date: 10/12/20ress Test with SPECT MPI: Negative CAD Presentations: Symptom unlikely to be ischemic. CONCLUSIONS Normal coronary arteries Normal LV size, wall motion,and systolic function RECOMMENDATIONS Medical therapy DESCRIPTION OF PROCEDURE The patient arrived to the procedure lab. The risks and benefits of the procedure as well as a full d escription of our services here and current unavailability of surgical backup were fully explained to the patient and/or their significant other prior to the catheterization. The Timeout was completed, verifying the correct patient and procedure. The patient's procedural site was prepped and draped in the usual fashion. Local anesthetic was given subcutaneously to right radial region with Lidocaine 2% . Using a modified Seldinger technique, arterial access was obtained via the right radial artery, a 6 Fr sheath was inserted. Right Coronary Artery selective angiography was then performed in multiple v iews using a 5 Fr. 4.0 Eden catheter. Left Coronary Artery selective angiography was performed in mu ltiple views using a 5 Fr. 4.0 Eden catheter. Left Ventriculography was performed in DYE projection using a 5 Fr. Pigtail catheter. LV to AO pullback pressures were then recorded.The arterial sheath was pulled and a TR Band was applied for hemostasis 10cc air inserted. Sheath flushed prior to removal. CORONARY ANGIOGRAPHY DOMINANCE: Right Dominant LEFT HEART ASSESSMENT Left Ventricular Ejection Fraction: by LV Gram 60 % Normal LV wall motion Normal Left Ventricular systolic function Normal Left Ventricular systolic function LEFT MAIN: Angiographically normal LEFT ANTERIOR DESCENDING ARTERY: Angiographically normal CIRCUMFLEX ARTERY: Angiographically normal RIGHT CORONARY ARTERY: Angiographically normal COMPLICATIONS No Complications PROCEDURE MEDICATIONS Versed 1 mg IV Fentanyl 50 mcg IV Oxygen: 2 L/min via nasal cannula Heparin given IA 11/29/2020 08:08:22 Verapamil 2.5mg, 3000 units of Heparin given IA 11/29/2020 08:08:22 SUMMARY OF HEMODYNAMIC DATA Time AIR REST ECG 07:22:56 ECG 07:23:19 AO 87/47 (65) SA 08:15:13 LV 101/3, 5 08:24:55 LV 102/4, 5 08:25:00 LV 92/6, 8 08:25:37 LVp 91/7, 8 08:25:40 Signed By Shaq Colon MD On 11/29/2020 08:32:56 Shaq Colon MD
--- NOTE | 2020-11-29 08:40 | HP.PCM_ITS ---
History and Physical Date of Admission: 11/29/20 This is a 75-year-old female that presents here today for a diagnostic heart cath Patient was hospitalized on October 08, 2020 for symptomatic bradycardia. She also has a history of paroxysmal atrial fibrillation, hypothyroidism. She was evaluated by cardiology. She did undergo an echocardiogram which demonstrated an ejection fraction of 60%, mild tricuspid insufficiency, RVSP 33 mmhg. she did undergo a walking stress test to evaluate for chronotropic incompetence. No significant chronotropic incompetence was noted. ECG demonstrates sinus bradycardia with mild increase in heart rate with exercise. She did undergo a 24-hour Holter monitor at discharge. This demonstrated average heart rate of 56 bpm, minimum heart rate 30 bpm, maximum heart rate 82 bpm. There was a 4-second pause noted. She did have a short run of paroxysmal atrial fibrillation. Patient was symptomatic with one of her 3 episodes that she recorded with a heart rate of 30 bpm. Patient underwent PPM placement on 11/06/2020. With her SSS and low level stress test a diagnostic heart cath would like to be pursued. She did undergo a pharmacologic stress test at [facility] [place] in December 2019 which was negative for ischemia. Patient does feel that her fatigue is worsening. She does feel that she is having increased dizziness. She is also having chest discomfort. She is also having palpitations and shortness of breath with exertion. She has not had any syncopal events. Allergies codeine Allergy (Intermediate, Verified 10/17/20 14:01) rash amlodipine [From Norvasc] Allergy (Verified 10/17/20 13:58) Other benzoyl peroxide Allergy (Verified 10/17/20 13:58) Swelling cetylpyridinium chloride Allergy (Verified 10/17/20 13:58) Other Sulfa (Sulfonamide Antibiotics) Allergy (Verified 10/17/20 13:58) Other lisinopril Adverse Reaction (Verified 10/17/20 13:58) Other mesalamine [From Asacol] Adverse Reaction (Verified 10/17/20 13:58) Vomiting nabumetone [From Relafen] Adverse Reaction (Verified 10/17/20 13:58) Vomiting Medications Caltrate 600 plus D 1 tab PO DAILY 10/08/20 [History Confirmed 10/17/20] Farxiga 5 mg PO DAILY 10/08/20 [History Confirmed 10/17/20] biotin 1 mg PO DAILY 10/08/20 [History Confirmed 10/17/20] furosemide 20 mg PO DAILY 10/08/20 [History Confirmed 10/17/20] potassium chloride 10 meq PO DAILY 10/08/20 [History Confirmed 10/17/20] atorvastatin 10 mg tablet 5 mg PO DAILY tab 10/17/20 [History Confirmed 10/17/20] PFSH Medical History (HFpEF) heart failure with preserved ejection fraction Chronic kidney disease, stage 3a Diabetes mellitus type 2 in nonobese Hypothyroidism Kidney disease Osteoporosis Rheumatoid arthritis Sick sinus syndrome Surgical History History of ankle surgery History of cholecystectomy History of colonoscopy History of total abdominal hysterectomy History of tubal ligation Family History Brother Kidney disease Kidney cancer/Left nephrectomy Cancer Mother Cancer colon and breast Colon cancer Sister Cancer breast Social History Smoking Status: Never smoker alcohol intake: never substance use type: does not use caffeine: Yes Type: coffee Number of servings: 1 ROS Const Const: Positive for fatigue (worsening); Negative for weakness, headache(s), frequent falls, difficulty sleeping or excessive sweating Eyes Eyes: Negative for loss of peripheral vision, transient loss of vision, blurry vision, double vision or tunnel vision ENT ENT: Positive for dizziness (Increased) and balance problems; Negative for headache(s) or Nosebleed/epistaxis Cardio Chest Pain: Yes Frequency: other (Increasing in frequency) Character: dull Onset: at rest Location: left chest Duration: hours Palpitations: Yes feels like its: fast Edema: None Muscle aches with walking: None Resp Respiratory: Positive for SOB with activity and Cough; Negative for SOB at rest, SOB orthopnea\SOB lying down or paroxysmal nocturnal dyspnea GI GI: Negative nausea, vomiting, heartburn or black,tarry stools : Negative for hematuria Musc Musc: Positive for balance problems; Negative for muscle aches/ myalgia, muscle weakness or joint pain Skin Skin: Negative non-healing lesions, rash or unusual bruising Neuro Neuro: Positive for dizziness (Increased); Negative for lightheadedness, near syncope, syncope, frequent falls, he adache(s), weakness, blurry vision, double vision or lack of coordination [place]den Hematologic/Lymphatic: Negative for easy bleeding or easy bruising Endo Endo: Positive for fatigue (worsening); Negative for excessive sweating or increased thirst/drinking Psych Psych: Negative for anxiety or depression Allergy Allergy/Immunology: Negative for hives and Negative for rash Cardiology Exam Const Appearance: cooperative, healthy appearing, comfortable, no acute distress and well developed Orientation: alert, awake and oriented x3 Head Head: normal to inspection Ears: hearing grossly normal bilaterally Nose: external nose normal Face and Sinus: face symmetric Mouth: oral mucosae normal, lip normal and moist mucous membranes Eyes General: appearance normal, both eyes and all related structures Eyelids: eyelids normal Conjunctivae: conjunctivae normal Pupils: PERRL EOM: EOM intact bilaterally Neck Neck: normal visual inspection and trachea midline; Negative no JVD Carotids: Negative bruit Chest Chest inspection: normal inspection of the chest Auscultation: Bilateral: Clear to Auscultation Cardio Palpation: normal PMI Rate: regular rate Rhythm: regular rhythm Heart sounds: S1 normal and S2 normal; Negative rub, gallop or murmur GI GI: soft, no hepatosplenomegaly and bowel sounds present Neuro General: patient alert, patient awake, patient oriented x3 and CN's II-XI intact bilaterally Extremities Pulses: Normal: Right Posterior Tibial Pulse, Left Posterior Tibial Pulse, Right Radial Pulse and Left Radial Pulse Lower Extremity Edema: None: Bilateral Psych Psychological: normal affect Assessment & Plan Assessment/Plan (1) Paroxysmal atrial fibrillation: PLAN: With patient's paroxysmal atrial fibrillation and sick sinus syndrome would like to pursue a diagnostic heart catheterization to assess for underlying ischemia. Anticoagulation will be decided post catheterization. (2) Symptomatic bradycardia: PLAN: Patient did undergo a pacemaker placement last month. She will follow up with the pacemaker clinic accordingly. (3) Chest pain: PLAN: With patient's chest discomfort and fatigue would like to pursue a diagnostic heart catheterization to evaluate for underlying ischemia.
== END 2020-11-29 10:00 | disposition home or self-care (01) ==
LOC: CLSP 07:06
PROVIDERS: PCP Internal Medicine; Referring Provider Internal Medicine Cardiovascular Disease; Visit Provider Internal Medicine Cardiovascular Disease
DX: I25.10 Atherosclerotic heart disease of native coronary artery without angina pectoris (principal); I48.0 Paroxysmal atrial fibrillation; E11.22 Type 2 diabetes mellitus with diabetic chronic kidney disease; I50.9 Heart failure, unspecified; N18.31 Chronic kidney disease, stage 3a; M06.9 Rheumatoid arthritis, unspecified; M81.0 Age-related osteoporosis without current pathological fracture; Z79.84 Long term (current) use of oral hypoglycemic drugs; Z79.899 Other long term (current) drug therapy
CPT/HCPCS: 36415; 71046; 80048; 85027; 93458; 99152; 99153; J7040; Q9967; C1769; C1894

== ENCOUNTER → 2021-03-12 13:59 | Outpatient (CLI) | payer MEDICARE, OTHER, SELFPAY ==
--- NOTE | 2021-03-12 14:10 | BI_ITS ---
MAMMOGRAPHY - UNILATERAL DIAGNOSTIC: RIGHT BREAST REASON FOR EXAM: Female, 76 years old. Abnormal screening mammogram. PERTINENT HISTORY: Sister with breast cancer. Mother with breast cancer. TECHNIQUE: Compression spot views of the right breast in the mediolateral oblique and craniocaudad views were obtained. CAD: Full Field Digital Mammography with Computer Added Detection was performed. COMPARISON: Comparison is made with prior examination 03/01/2021. FINDINGS: Breast Composition: There are scattered areas of fibroglandular density. There are no dominant masses or suspicious calcifications. No other significant abnormalities are identified. BI/DIAG MAMM W/CAD, UNILAT IMPRESSION: Negative unilateral diagnostic mammogram. Yearly followup mammogram recommended. (A) ASSESSMENT CATEGORY: BIRADS Category 1: Negative. A letter regarding these results will be sent to the patient by the facility within 30 days. Approximately 10% of breast cancers are not detected by mammography. A normal mammogram should not delay biopsy of a clinically suspicious abnormality. Electronically Signed: Renato Islas MD at 14:57 EDT , Service support ,
== END ==
LOC: BIRAD 14:00 → OPBI 14:03
PROVIDERS: PCP Internal Medicine; Visit Provider Surgery
DX: R92.8 Other abnormal and inconclusive findings on diagnostic imaging of breast (principal)
CPT/HCPCS: 77065

== ENCOUNTER 2021-10-12 20:13 | Emergency (ER) | payer MEDICARE, OTHER, SELFPAY ==
[2021-10-12 20:13] VITALS: BP 144/76; PULSE 67; RESP 17; TEMP 36.6; O2SAT 99; BMI 86.0
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
--- NOTE | 2021-10-12 21:00 | CT_ITS ---
STUDY: CT BRAIN WITHOUT CONTRAST REASON FOR EXAM: Female, 76 years old. Injury/Pain RADIATION DOSAGE (If Supplied By Facility): CTDIvol = ( 44.99 ) mGy, DLP = ( 745.49 ) mGycm TECHNIQUE: Transaxial CT imaging of the brain was performed without administration of intravenous contrast material. Individualized dose optimization techniques were used for this CT. COMPARISON: No relevant priors. FINDINGS: Moderate soft tissue swelling peripheral to left temporal bone and left frontal bone. Normal calvarium. Mild cortical and central atrophy. Mild cerebellar atrophy. No evidence of acute intra or extra-axial hemorrhage. There is no intracranial hemorrhage. There are no findings of an acute ischemic infarction. Normal visualized paranasal sinuses. CT/Brain/Head without Contrast IMPRESSION: Moderate soft tissue swelling left frontotemporal region. Mild cortical and central atrophy, mild cerebellar atrophy. Electronically Signed: Harjinder Duffy MD at 21:43 EDT ,
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
--- NOTE | 2021-10-12 21:01 | CT_ITS ---
STUDY: CT CERVICAL SPINE WITHOUT CONTRAST REASON FOR EXAM: Female, 76 years old. Injury/Pain RADIATION DOSAGE (If Supplied By Facility): CTDIvol = ( 14.94 ) mGy, DLP = ( 314.27 ) mGycm TECHNIQUE: High resolution transaxial imaging was performed without contrast material. Sagittal and coronal images were reconstructed. Individualized dose optimization techniques were used for this CT. COMPARISON: None FINDINGS: Normal craniovertebral junction. Normal anterior atlantoaxial articulation. There is moderate degenerative change at the articulation of the dens with the anterior arch of C1. There is severe anterior osteophyte formation C5-C7. There is 2 mm of anterior subluxation of C4 on C5 likely degenerative in origin. C2-3: Mild loss of disc space height, moderate left facet arthropathy, mild left-sided neural foraminal encroachment. C3-4: Moderate loss of disc space height, mild disc osteophyte, moderate bilateral facet arthropathy, bilateral uncovertebral joint disease, severe left and moderate right neural foraminal encroachment. C4-5: Mild disc osteophyte, severe right facet arthropathy, mild left facet arthropathy, bilateral uncovertebral joint disease with moderate right and [id number] left neural foraminal encroachment. C5-6: Severe loss of disc space height, moderate disc osteophyte, borderline central stenosis, bilateral facet arthropathy and uncovertebral joint disease with severe left and moderate right neural foraminal encroachment. C6-7: Severe loss of disc space height, mild disc osteophyte, moderate left and mild right facet arthropathy, bilateral uncovertebral joint disease, severe left and moderate right neural foraminal encroachment. C7-T1: Mild loss of disc space height, bilateral facet arthropathy and uncovertebral joint disease producing mild right-sided neural foraminal encroachment. Normal visualized soft tissue structures. CT/Spine Cervical without Contras IMPRESSION: 2 mm anterior subluxation C4 on C5 likely degenerative. Mild disc osteophyte C3-4, mild disc osteophyte C4-5, moderate disc osteophyte C5-6 and mild disc osteophyte C6-7. Multilevel degenerative disc disease, facet arthropathy, uncovertebral joint disease and neural foraminal encroachment as above. Electronically Signed: Harjinder Duffy MD at 21:59 EDT ,
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
[2021-10-12 22:30] VITALS: BP 119/69; PULSE 65; RESP 15; O2SAT 94
[2021-10-12] MEDS: Acetaminophen 500 MG Tablet 1000 MG PO (22:31)
== END 2021-10-12 23:14 | disposition home or self-care (01) ==
PROVIDERS: Emergency Provider Emergency Medicine; PCP Internal Medicine; Visit Provider Emergency Medicine
DX: S09.90XA Unspecified injury of head, initial encounter (principal); M06.9 Rheumatoid arthritis, unspecified; I50.32 Chronic diastolic (congestive) heart failure; E11.22 Type 2 diabetes mellitus with diabetic chronic kidney disease; N18.31 Chronic kidney disease, stage 3a; S20.20XA Contusion of thorax, unspecified, initial encounter; Z79.01 Long term (current) use of anticoagulants; Z79.899 Other long term (current) drug therapy; V89.2XXA Person injured in unspecified motor-vehicle accident, traffic, initial encounter; Y93.89 Activity, other specified; Y99.9 Unspecified external cause status; Y92.9 Unspecified place or not applicable
CPT/HCPCS: 70450; 70480; 71045; 72125; 93005; 99285

== ENCOUNTER 2022-05-27 11:25 | Emergency (ER) | payer MEDICARE, OTHER, SELFPAY ==
[2022-05-27 11:27] VITALS: BP 140/65; PULSE 65; RESP 18; TEMP 36.6; O2SAT 99; BMI 28.5
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
--- NOTE | 2022-05-27 11:43 | EDS_ITS ---
HPI History of Present Illness Chief Complaint: Shortness of Breath Informant: patient Onset/Context/Timing Onset: - (a long time) Context: gradual and onset Timing: Continuous Quality: Positive for Dyspnea on exertion Current Severity: Moderate Maximum Severity: Moderate Worsened by: Exertion; Not Worsened By Lying flat Relieved by: Rest Associated Symptoms cough and white sputum Chest Pain: Positive for None Narrative Narrative: Patient states she is having worsening dyspnea. She feels that is her heart failure and that she is filling up with water. She is seen at the [facility] heart failure clinic in [place]. She was seen there at the end of this past week, they gave her IV Lasix in the office and did not make her urinate, so they increased her torsemide over the weekend, the past 3 to 4 days. It has not resulted in her urinating more than usual, and it is not helping her breathing which has been gradually getting worse. She denies any chest discomfort. She does have a productive cough. She does not have any history of lung disease that she knows of, she is on no oxygen at home. She has been anticoagulated for a long time due to history of atrial fibrillation. She has edema in her legs that is chronically worse in her left than the right, as it is now, and now she states she has edema in her stomach and breasts as well. No fevers or chills. No history of DVT or PE. No recent travel or immobilization. No pain in her calves just tightness in her legs due to the water. She states she had an echocardiogram within the past several months and was told by the heart failure clinic that nothing changed. [facility] Medical History (HFpEF) heart failure with preserved ejection fraction Chronic kidney disease, stage 3a Diabetes mellitus type 2 in nonobese Hypothyroidism Kidney disease Osteoporosis Rheumatoid arthritis Sick sinus syndrome Home Medications atorvastatin 10 mg tablet (Lipitor) 5 mg PO DAILY cholesterol 10/17/20 [History Last Taken Unknown] furosemide 20 mg tablet 40 mg PO DAILY diuretic 02/08/21 [History Last Taken Unknown] omeprazole 20 mg capsule,delayed release 20 mg PO DAILY 02/08/21 [History Last Taken Unknown] potassium chloride 10 mEq tablet,extended release 10 meq PO DAILY supplement 02/08/21 [History Last Taken Unknown] apixaban 5 mg tablet (Eliquis) 5 mg PO BID 10/12/21 [History Last Taken Unknown] albuterol sulfate 90 mcg/actuation aerosol inhaler (Ventolin HFA) 1 - 2 puff inhalation Q4H PRN PRN Wheezing ##1 05/27/22 [Rx Last Taken Unknown] torsemide 60 mg tablet 80 mg PO BID 05/27/22 [History Last Taken Unknown] Allergy/AdvReac Type Severity Reaction Status Date / Time codeine Allergy Intermediate rash Verified 05/27/22 11:26 amlodipine [From Norvasc] Allergy Other Verified 05/27/22 11:26 benzoyl peroxide Allergy Swelling Verified 05/27/22 11:26 cetylpyridinium chloride Allergy Other Verified 05/27/22 11:26 Sulfa (Sulfonamide Allergy Other Verified 05/27/22 11:26 Antibiotics) lisinopril AdvReac Other Verified 05/27/22 11:26 mesalamine [From Asacol] AdvReac Vomiting Verified 05/27/22 11:26 nabumetone [From Relafen] AdvReac Vomiting Verified 05/27/22 11:26 Family History Brother Kidney disease Kidney cancer/Left nephrectomy Cancer Mother Cancer colon and breast Colon cancer Sister Cancer breast Surgical History History of ankle surgery History of cholecystectomy History of colonoscopy History of left heart catheterization (11/29/20) History of permanent cardiac pacemaker placement (11/06/20) History of total abdominal hysterectomy History of tubal ligation Social History Smoking Status: Never smoker alcohol intake: never substance use type: does not use caffeine: Yes Type: coffee Number of servings: 1 ROS ROS ED Constitutional Constitutional ED: Denies chills or fever(s) Eyes Eyes: Denies change in vision or diplopia ENT ENT ED: Denies rhinorrhea or sore throat Cardiovascular Cardiovascular: Reports as per HPI and leg edema; Denies chest pain, orthopnea, palpitations or paroxysmal nocturnal dyspnea Respiratory/Chest Respiratory/Chest: Reports cough, dyspnea, dyspnea on exertion and sputum; Denies orthopnea or paroxysmal nocturnal dyspnea Gastrointestinal Gastrointestinal: Denies abdominal pain, diarrhea, nausea or vomiting Genitourinary Genitourinary ED: Denies dysuria or hematuria Musculoskeletal Musculoskeletal: Denies back pain or neck pain Integumentary Denies abscess or rash Neurologic Neurologic: Denies headache(s), paresthesias or weakness Psychiatric Psychiatric: Denies anxiety or suicidal thoughts EXAM Physical Exam Const Vital Signs: 05/27/22 11:27 05/27/22 11:51 05/27/22 11:54 Temperature 97.8 F Temperature Source Temporal Pulse Rate 65 70 Respiratory Rate 18 16 Respiratory Effort Short of Breath Respiratory Pattern Blood Pressure 140/65 H Blood Pressure Mean 90 Pulse Ox 99 95 Oxygen Delivery Method Room Air Room Air 05/27/22 11:52 05/27/22 12:35 Temperature Temperature Source Pulse Rate 65 60 Respiratory Rate 18 16 Respiratory Effort Respiratory Pattern Normal Blood Pressure 107/64 Blood Pressure Mean 78 Pulse Ox 97 Oxygen Delivery Method Room Air Positive well nourished and well developed General Appearance ED: well developed and NAD HEENT Reports moist mucous membranes normocephalic and atraumatic Eyes PERRL and EOMs intact bilaterally Neck full ROM, no lymphadenopathy and supple Neck Narrative: Positive JVD Resp clear to auscultation bilaterally Resp Narrative: Tachypneic without respiratory distress Cardio regular rate, regular rhythm and no murmurs GI non-tender and non-distended Auscultation: normoactive bowel sounds Palpation: soft Back/Spine no CVA tenderness General Back: other FROM Extremity normal to inspection Extremity Narrative: No calf tenderness. No palpable cords. No signs of cellulitis. General Extremety ED: Yes edema; Negative for pulses abnormal or tenderness General Extremity: edema bilateral lower extremity Details: moderate (Symmetric below the knee, but more prominent in the left thigh than the right); Negative for pulses abnormal Neuro oriented x3, CN's II-XII intact bilaterally and no sensory deficits noted Sensorium / Orientation: awake and alert Motor Exam: strength 5/5 throughout Psych mental status grossly normal Skin no rashes or lesions noted and no wounds MDM MDM MDM Narrative Medical decision making narrative: Patient has clear lungs, but is dyspneic. The rest of her symptoms and exam are more consistent with congestive heart failure, except for the fact that she is not orthopneic. My interpretation two-view chest x-ray shows some chronic changes but nothing acute, radiology is in agreement. Her EKG shows nothing acute although she is probably in a sinus rhythm, I am not able to rule out the possibility of an accelerated junctional rhythm given the EKG interpretation see below. Her labs show a normal troponin, her BNP is slightly elevated, there is no leukocytosis, she does not appear to have pneumonia on the chest x-ray, I gave her a duo nebulizer treatment while I was working her up and her breathing is actually improved. She does have acute kidney injury with a creatinine up to 1.7. This is elevated enough to take her EGFR down to where doing CT angiography may not be safe with regards to her kidneys. I think the risk outweighs the possible benefits of this, since she is anticoagulated and never had a DVT or PE and unlikely does not out. I had nursing ambulate her after she was breathing better, she is not hypoxic or even close, and did fairly well. I offered admission, she declines and prefers to be treated as an outpatient here. I think discussing with her assistant accounting manager is in order given the fact that the diuretics are not making her urinate more, and she has acute kidney injury. We did attempt to call her assistant accounting manager but he apparently is out of the office on vacation. I discussed with one of the nurse practitioners in the office who knows the patient well and reviewed her records. Her last creatinine was on 04/08/2022 and it was 1.58. Given that, she does not have ESTRELLA, this is not far from her baseline recently. (Her most recent creatinine in our records was from over 1.5 years ago.) Given all of this, and entertaining the possibility of URI/LRI/bronchitis with no evidence of pneumonia on the x-ray, and doing better after an albuterol treatment, they would prefer not to adjust any of her medications right now, continue which she is on, and they will contact her over the phone tomorrow for a phone reevaluation, and I am going to prescribe her an albuterol inhaler to use as needed for now. Patient is comfortable with that plan going home. Lab Data Attestation: I reviewed the patient's lab results. Labs: Laboratory Results - last 24 hr 05/27/22 05/27/22 05/27/22 11:57 11:57 11:57 WBC 5.0 RBC 3.32 L Hgb 9.7 L Hct 31.0 L MCV 93.4 MCH 29.2 MCHC 31.3 L RDW Std Deviation 55.7 H RDW Coeff of Young 16.1 H Plt Count 100 L MPV 11.9 Immature Gran % (Auto) 0.600 Neut % (Auto) 67.4 Lymph % (Auto) 13.5 L [place] % (Auto) 14.7 H Eos % (Auto) 3.2 Baso % (Auto) 0.6 Absolute Neuts (auto) 3.3 Absolute Lymphs (auto) 0.67 L Nucleated RBC % 0 Sodium 136 Potassium 3.3 L Chloride 98 Carbon Dioxide 31.0 Anion Gap 7 BUN 22 H Creatinine 1.70 H Estim Creat Clear Calc 22.92 Est GFR (MDRD) Af Amer 37 L Est GFR (MDRD) Non-Af 31 L BUN/Creatinine Ratio 12.9 Glucose 141 H Calcium 8.9 Troponin I High Sens 32 B-Natriuretic Peptide 210.4 H Radiography Diagnostic Testing: Clinical Impression(s) from Imaging Studies Chest X-Ray 05/27/22 12:05 IMPRESSION: Degenerative changes, as described above. No demonstrated acute cardiopulmonary process. Electronically Signed: Onofre Aguilar MD at 12:31 EST Reading Location ID and State: [address] [place] [address] , Service support , Rhythm Strip Rhythm Strip: Sinus Rhythm Rate: 65 Ectopy: None EKG Initial EKG: Attestation: I personally reviewed and interpreted this EKG as follows: Interpretation: No Acute Injury Pattern Comments: Sinus versus junctional, low voltage limits interpretation Discharge Plan Triage Chief Complaint: Shortness of Breath ED Provider: Anam Black Dx/Rx/DC Orders Clinical Impression: MEANS (dyspnea on exertion), (HFpEF) heart failure with preserved ejection fraction, Edema, peripheral, Acute cough Instructions: ED Bronchitis with Wheezing (Adult) Prescriptions: New albuterol sulfate [Ventolin HFA] 90 mcg/actuation HFA aerosol inhaler 1 - 2 puff inhalation Q4H PRN PRN (Reason: Wheezing) Qty: 1 0RF Continued omeprazole 20 mg capsule,delayed release(DR/EC) 20 mg PO DAILY atorvastatin [Lipitor] 10 mg tablet 5 mg PO DAILY furosemide 20 mg tablet 40 mg PO DAILY Rx Instructions: she adjusts her dose potassium chloride 10 mEq tablet extended release 10 meq PO DAILY Label Comments: T Rx Instructions: 3 times a week Eliquis 5 mg Tablet 5 mg PO BID torsemide 60 mg Tablet 80 mg PO BID Primary Care Provider: Mirza Singh Referrals: Mirza Singh MD [Primary Care Provider] - (or Dr. De La Rosa; they will call you tomorrow to check on you and adjust meds if needed) Disposition Disposition: Home, Self Care
[2022-05-27 11:51] VITALS: PULSE 70; RESP 16; O2SAT 95
[2022-05-27 11:52] VITALS: PULSE 65; RESP 18
[2022-05-27] MEDS: Ipratropium/Albuterol Sulfate 3 ML AMPUL.NEB INHALATION (11:52)
[2022-05-27 12:02] LABS: Absolute Lymphocyte Count 0.67 X10^3/uL (0.83-4.51); Absolute Neutrophil Count 3.3 X10^3/uL (2.0-7.7); Basophil# 0.03 X10^3/uL; Basophil% 0.6 % (0-1); Eosinophil# 0.16 X10^3/uL; Eosinophils% 3.2 % (0-5); Hemoglobin 9.7 g/dL (12.0-15.0); Lymphocyte # 0.67 X10^3/ul (0.83-4.51); Lymphocyte % 13.5 % (19-41); Mean Corp Hgb Conc 31.3 g/dL (32-36); Mean Corpuscular Hgb 29.2 pg (27.0-32.0); Mean Corpuscular Volume 93.4 fL (81-99); Mean Platelet Vol. 11.9 fl (6.2-12.0); Monocyte# 0.73 X10^3/uL; Monocyte% 14.7 % (0-10); NRBC Flagged by Analyzer 0 % (0-5); Neutrophil # 3.34 X10^3/uL (2.7-7.7); Neutrophil % 67.4 % (47-70); Platelet Count 100 K/mm3 (150-450); RBC Distribution Width CV 16.1 % (11.6-14.6); RBC Distribution Width SD 55.7 fl (35.1-43.9); Red Blood Count 3.32 M/mm3 (4.2-5.4)
--- NOTE | 2022-05-27 12:05 | RAD_ITS ---
STUDY: X-RAY CHEST REASON FOR EXAM: Female, 77 years old. s PT C/O OF SOB. STATES SHE WAS ON LASIX BUT NOT WORKING , STATES THEY SWITCHED HER MEDICATIONS BUT INCREASED SOB, AUDIBLE WHEEZES NOTED. TECHNIQUE: PA and lateral views of the chest. COMPARISON: OCTOBER 12, 2021 FINDINGS: Stable left chest cardiac device and leads. The lungs are clear and expanded. There is no demonstrated pleural abnormality. Normal size heart. Normal mediastinum and trae. Normal visualized pulmonary arteries. There is atherosclerotic calcification of the aortic arch with tortuosity. There is demineralization of the osseous structures. Normal visualized ribs, clavicles, and shoulders. There is no demonstrated abnormality of the visualized soft tissue structures of the upper abdomen. RAD/Chest PA and Lateral IMPRESSION: Degenerative changes, as described above. No demonstrated acute cardiopulmonary process. Electronically Signed: Onofre Aguilar MD at 12:31 EST ,
[2022-05-27 12:19] LABS: Anion Gap 7 (5-15); BUN 22 mg/dL (7-18); BUN/Creat Ratio 12.9 RATIO (10-20); Calcium,Total 8.9 mg/dL (8.5-10.1); Chloride 98 mmol/L (98-107); EST Glomerular Filtration Rate 31 mL/min (>60); Est Glom Filt Rate - Afr Amer 37 mL/min (>60); Estimated Creatinine Clearance 22.92 ml/min; Glucose 141 mg/dL (74-106); Potassium 3.3 mmol/L (3.5-5.1); Sodium Level 136 mmol/L (136-145); Troponin-I HS 32 pg/mL (3.0-54.0)
[2022-05-27 12:33] LABS: BNP,B-Type NATRIURETIC PEPTIDE 210.4 pg/mL (0-100)
[2022-05-27 12:35] VITALS: BP 107/64; PULSE 60; RESP 16; O2SAT 97
[2022-05-27 13:32] VITALS: O2SAT 98
[2022-05-27 15:46] VITALS: BP 124/69; PULSE 72; RESP 15; O2SAT 98
== END 2022-05-27 15:49 | disposition home or self-care (01) ==
PROVIDERS: Emergency Provider Emergency Medicine; PCP Internal Medicine; Visit Provider Emergency Medicine
DX: R06.02 Shortness of breath (principal); N17.9 Acute kidney failure, unspecified; I50.30 Unspecified diastolic (congestive) heart failure; E11.22 Type 2 diabetes mellitus with diabetic chronic kidney disease; N18.31 Chronic kidney disease, stage 3a
CPT/HCPCS: 71046; 80048; 83880; 84484; 85025; 87428; 93005; 94640; 99285; A4216

== ENCOUNTER 2022-08-22 23:12 | Inpatient (IN) | payer MEDICARE, OTHER, SELFPAY ==
[2022-08-22 23:14] VITALS: BP 114/62; PULSE 62; RESP 16; TEMP 36.3; O2SAT 99; BMI 26.6
--- NOTE | 2022-08-22 23:33 | EKG12_ITS ---
Test Reason : DYSRHYTHMIA Blood Pressure : / mmHG Vent. Rate : 060 BPM Atrial Rate : 060 BPM P-R Int : 228 ms QRS Dur : 104 ms QT Int : 454 ms P-R-T Axes : 000 043 -06 degrees QTc Int : 454 ms Atrial-paced rhythm with prolonged AV conduction Nonspecific T wave abnormality Abnormal ECG Confirmed by ADA HERRERA, ALICE ([id number]), primer expeditor and drier VINCE EVANS ([id number]) on 08/25/2022 11:11:35 AM Referred By: MELISSA Confirmed By:BERENICE CABALLERO MD
[2022-08-22 23:45] LABS: Absolute Lymphocyte Count 0.81 X10^3/uL (0.83-4.51); Absolute Neutrophil Count 3.3 X10^3/uL (2.0-7.7); Basophil# 0.02 X10^3/uL; Basophil% 0.4 % (0-1); Eosinophil# 0.02 X10^3/uL; Eosinophils% 0.4 % (0-5); Hematocrit 22.8 % (37-47); Hemoglobin 7.4 g/dL (12.0-15.0); Lymphocyte # 0.81 X10^3/ul (0.83-4.51); Lymphocyte % 15.5 % (19-41); Mean Corp Hgb Conc 32.5 g/dL (32-36); Mean Corpuscular Hgb 28.2 pg (27.0-32.0); Mean Platelet Vol. 13.4 fl (6.2-12.0); NRBC Flagged by Analyzer 0 % (0-5); Neutrophil # 3.28 X10^3/uL (2.7-7.7); Neutrophil % 62.5 % (47-70); Platelet Count 104 K/mm3 (150-450); RBC Distribution Width CV 15.5 % (11.6-14.6); RBC Distribution Width SD 49.4 fl (35.1-43.9); Red Blood Count 2.62 M/mm3 (4.2-5.4); White Blood Count 5.2 K/mm3 (4.4-11.0)
[2022-08-23] VITALS (15 sets, daily range): BP systolic 90–110; BP diastolic 45–65; PULSE 58–69; RESP 15–18; TEMP 36.4–37.1; O2SAT 96–100; BMI 25.9
[2022-08-23] LABS: Anion Gap 11 (5-15); BUN 66 mg/dL (7-18); BUN/Creat Ratio 31.1 RATIO (10-20); Calcium,Total 9.3 mg/dL (8.5-10.1); Chloride 87 mmol/L (98-107); Creatinine, Serum 2.12 mg/dL (0.55-1.02); EST Glomerular Filtration Rate 24 mL/min (>60); Est Glom Filt Rate - Afr Amer 29 mL/min (>60); Estimated Creatinine Clearance 18.38 ml/min; Glucose 144 mg/dL (74-106); Magnesium 2.7 mg/dL (1.6-2.6); Potassium 2.2 mmol/L (3.5-5.1); Sodium Level 132 mmol/L (136-145)
[2022-08-23] MEDS: Potassium Chloride 10mEq/100mL 10 MEQ/100 ML IV.SOLN. 100 MEQ IV BOLUS ×9 (00:09→23:36)
--- NOTE | 2022-08-23 00:46 | EX.ED.DYSGE1 ---
HPI History of Present Illness Chief Complaint: Abn Labs Detail of Chief Complaint: Low potassium Informant: patient Narrative Narrative: Patient states that she went to the [facility] today for lab work secondary to history of hypokalemia and on diuretics. Patient states she received a phone call tonight that she had an emergent value of low potassium. She cannot remember the number she was told, but thinks it is either 3.2 or 2.3. She states that she has felt weak with muscle cramping for the last week or so. No fever or chills. No vomiting PFSH PFSH Medical History (HFpEF) heart failure with preserved ejection fraction Chronic kidney disease, stage 3a Diabetes mellitus type 2 in nonobese Hypothyroidism Kidney disease Osteoporosis Rheumatoid arthritis Sick sinus syndrome Home Medications atorvastatin 10 mg tablet (Lipitor) 5 mg PO DAILY cholesterol 10/17/20 [History Last Taken Unknown] omeprazole 20 mg capsule,delayed release 20 mg PO DAILY 02/08/21 [History Last Taken Unknown] potassium chloride 10 mEq tablet,extended release 10 meq PO BID 02/08/21 [History Last Taken Unknown] apixaban 5 mg tablet (Eliquis) 5 mg PO BID 10/12/21 [History Last Taken Unknown] albuterol sulfate 90 mcg/actuation aerosol inhaler (Ventolin HFA) 1 - 2 puff inhalation Q4H PRN PRN Wheezing ##1 05/27/22 [Rx Last Taken Unknown] torsemide 60 mg tablet 80 mg PO DAILY 05/27/22 [History Last Taken Unknown] alendronate 70 mg tablet 70 mg PO GOMEZ 08/23/22 [History Last Taken Unknown] Allergy/AdvReac Type Severity Reaction Status Date / Time codeine Allergy Intermediate rash Verified 08/22/22 23:13 amlodipine [From Norvasc] Allergy Other Verified 08/22/22 23:13 benzoyl peroxide Allergy Swelling Verified 08/22/22 23:13 cetylpyridinium chloride Allergy Other Verified 08/22/22 23:13 Sulfa (Sulfonamide Allergy Other Verified 08/22/22 23:13 Antibiotics) lisinopril AdvReac Other Verified 08/22/22 23:13 mesalamine [From Asacol] AdvReac Vomiting Verified 08/22/22 23:13 nabumetone [From Relafen] AdvReac Vomiting Verified 08/22/22 23:13 Family History Brother Kidney disease Kidney cancer/Left nephrectomy Cancer Mother Cancer colon and breast Colon cancer Sister Cancer breast Surgical History History of ankle surgery History of cholecystectomy History of colonoscopy History of left heart catheterization (11/29/20) History of permanent cardiac pacemaker placement (11/06/20) History of total abdominal hysterectomy History of tubal ligation Social History Smoking Status: Never smoker alcohol intake: never substance use type: does not use caffeine: Yes Type: coffee Number of servings: 1 ROS ROS ED Constitutional Constitutional ED: Denies chills or fever(s) Eyes Eyes: Denies change in vision or discharge from eye(s) ENT ENT ED: Denies discharge from eye(s), rhinorrhea or sore throat Cardiovascular Cardiovascular: Denies chest pain or palpitations Respiratory/Chest Respiratory/Chest: Denies cough or dyspnea Gastrointestinal Gastrointestinal: Denies abdominal pain, diarrhea, nausea or vomiting Genitourinary Genitourinary ED: Denies dysuria Musculoskeletal Musculoskeletal: Reports myalgias; Denies back pain or extremity pain Integumentary Denies Abrasions or rash Neurologic Neurologic: Reports weakness; Denies headache(s) Psychiatric Psychiatric: Denies anxiety or depression Allergic/Immunologic Allergic/Immunologic ED: Denies lip swelling or urticaria EXAM Physical Exam Const Vital Signs: 08/22/22 23:14 08/22/22 23:15 Temperature 97.3 F L Temperature Source Temporal Pulse Rate 62 Respiratory Rate 16 Respiratory Effort Normal Non-Labored Respiratory Pattern Normal Blood Pressure 114/62 Blood Pressure Mean 79 Pulse Ox 99 Oxygen Delivery Method Room Air Positive well nourished and well developed General Appearance ED: well developed HEENT Reports normocephalic and head/scalp atraumatic Eyes PERRL and EOMs intact bilaterally Neck supple Chest Wall inspection of chest normal and palpation of chest normal Resp normal respiratory effort and clear to auscultation bilaterally Cardio regular rate and regular rhythm GI normal to inspection, nondistended, normoactive bowel sounds Palpation: soft Extremity normal to inspection Neuro oriented x3 Neuro Narrative: No focal neurodeficit. Sensorium / Orientation: alert Psych mental status grossly normal Skin no rashes or lesions noted MDM MDM MDM Narrative Medical decision making narrative: Labwork obtained to evaluate for leukocytosis, anemia, and electrolyte derangement. Potassium chloride infusion ordered. Patient placed on associate broker and EKG obtained. Lab Data Attestation: I reviewed the patient's lab results. Labs: Laboratory Results - last 24 hr 08/22/22 08/22/22 23:25 23:25 WBC 5.2 RBC 2.62 L Hgb 7.4 L Hct 22.8 L MCV 87.0 MCH 28.2 MCHC 32.5 RDW Std Deviation 49.4 H RDW Coeff of Young 15.5 H Plt Count 104 L MPV 13.4 H Immature Gran % (Auto) 0.200 Neut % (Auto) 62.5 Lymph % (Auto) 15.5 L [place] % (Auto) 21.0 H Eos % (Auto) 0.4 Baso % (Auto) 0.4 Absolute Neuts (auto) 3.3 Absolute Lymphs (auto) 0.81 L Nucleated RBC % 0 Sodium 132 L Potassium 2.2 L* Chloride 87 L Carbon Dioxide 34.0 H Anion Gap 11 BUN 66 H Creatinine 2.12 H Estim Creat Clear Calc 18.38 Est GFR (MDRD) Af Amer 29 L Est GFR (MDRD) Non-Af 24 L BUN/Creatinine Ratio 31.1 H Glucose 144 H Calcium 9.3 Magnesium 2.7 H EKG Initial EKG: Attestation: I personally reviewed and interpreted this EKG as follows: Interpretation: Sinus Rhythm (Sinus at 60 with paced rhythm. No acute ischemia. Nonspecific T wave flattening noted throughout.) Treatment and Re-Evaluation :: CBC reveals normal white count 5.2 with hemoglobin of 7.4. Last value unable to verify is from August 04 at which time her hemoglobin was 9.4. Patient denies any obvious source of blood loss including dark stools, hematuria, or epistaxis. In light of this rectal examination is performed to test for blood. Stool guaiac does come back positive for blood. Patient will have type and screen performed. Chemistry studies reveal a potassium of 2.2 with a sodium of 132 and a chloride of 87. BUN is 66 with a creatinine of 2.12. Most recent creatinine I have available for comparison was 1.7. Magnesium is obtained and is normal at 2.7. I will speak with hospitalist regarding admission. Discharge Plan Triage Chief Complaint: Abn Labs ED Provider: Lashawn Hansen Dx/Rx/DC Orders Clinical Impression: Hypokalemia, Anemia, Guaiac positive stools Prescriptions: No Action omeprazole 20 mg capsule,delayed release(DR/EC) 20 mg PO DAILY atorvastatin [Lipitor] 10 mg tablet 5 mg PO DAILY potassium chloride 10 mEq tablet extended release 10 meq PO BID Label Comments: T Rx Instructions: 3 times a week Eliquis 5 mg Tablet 5 mg PO BID torsemide 60 mg Tablet 80 mg PO DAILY albuterol sulfate [Ventolin HFA] 90 mcg/actuation HFA aerosol inhaler 1 - 2 puff inhalation Q4H PRN PRN (Reason: Wheezing) Qty: 1 0RF alendronate 70 mg tablet 70 mg PO GOMEZ Primary Care Provider: Mirza Singh Referrals: Mirza Singh MD [Primary Care Provider] - Disposition Disposition: Acute Care Hospital [facility]
--- NOTE | 2022-08-23 01:29 | PCM.HP.STD ---
HPI - General General Date of Admission: 08/23/22 Date of Service: 08/23/22 Chief Complaint: Abnormal labs HPI Narrative CARMELITA KASPER, is a 77 F with a significant history of heart failure with preserved ejection fraction; permanent pacemaker implantation; paroxysmal A-fib; and chronic hypokalemia who presents to the emergency department with low potassium and abnormal. Patient's check blood potassium because she is on Torsemide. She reported that her overlock hemmer in consultation with a urologist prescribed the torsemide. She reports worsened leg weakness in the past week that has required her to use a cane. She reports cramps in her bilateral hands and legs. She is constipated and she has nausea. She reported abdominal symptoms that is reminiscent of previous when she had an ulcer. At the emergency department her potassium was 2.2. She received IV potassium. Also patient was found to have a drop in her hemoglobin. Emergency department with reported that rectal exams was unremarkable. However patient had positive occult stools. [facility] Medical History (HFpEF) heart failure with preserved ejection fraction Chronic kidney disease, stage 3a Diabetes mellitus type 2 in nonobese Hypothyroidism Kidney disease Osteoporosis Rheumatoid arthritis Sick sinus syndrome Home Medications atorvastatin 10 mg tablet (Lipitor) 5 mg PO DAILY cholesterol 10/17/20 [History Last Taken Unknown] omeprazole 20 mg capsule,delayed release 20 mg PO DAILY 02/08/21 [History Last Taken Unknown] potassium chloride 10 mEq tablet,extended release 10 meq PO BID 02/08/21 [History Last Taken Unknown] apixaban 5 mg tablet (Eliquis) 5 mg PO BID 10/12/21 [History Last Taken Unknown] albuterol sulfate 90 mcg/actuation aerosol inhaler (Ventolin HFA) 1 - 2 puff inhalation Q4H PRN PRN Wheezing ##1 05/27/22 [Rx Last Taken Unknown] torsemide 60 mg tablet 80 mg PO DAILY 05/27/22 [History Last Taken Unknown] alendronate 70 mg tablet 70 mg PO GOMEZ 08/23/22 [History Last Taken Unknown] Allergy/AdvReac Type Severity Reaction Status Date / Time codeine Allergy Intermediate rash Verified 08/23/22 02:41 amlodipine [From [facility]] Allergy Other Verified 08/23/22 02:41 benzoyl peroxide Allergy Swelling Verified 08/23/22 02:41 cetylpyridinium chloride Allergy Other Verified 08/23/22 02:41 Sulfa (Sulfonamide Allergy Other Verified 08/23/22 02:41 Antibiotics) lisinopril AdvReac Other Verified 08/23/22 02:41 mesalamine [From Asacol] AdvReac Vomiting Verified 08/23/22 02:41 nabumetone [From Relafen] AdvReac Vomiting Verified 08/23/22 02:41 Family History Brother Kidney disease Kidney cancer/Left nephrectomy Cancer Mother Cancer colon and breast Colon cancer Sister Cancer breast Surgical History History of ankle surgery History of cholecystectomy History of colonoscopy History of left heart catheterization (11/29/20) History of permanent cardiac pacemaker placement (11/06/20) History of total abdominal hysterectomy History of tubal ligation Social History Smoking Status: Never smoker alcohol intake: never substance use type: does not use caffeine: Yes Type: coffee Number of servings: 1 ROS ROS Narrative Pertinent positives and pertinent negatives as noted in HPI. All other systems were reviewed and are negative Vital Signs Vital Signs Vital Signs: 08/22/22 23:14 08/22/22 23:15 Temperature 97.3 F L Temperature Source Temporal Pulse Rate 62 Respiratory Rate 16 Respiratory Effort Normal Non-Labored Respiratory Pattern Normal Blood Pressure 114/62 Blood Pressure Mean 79 Pulse Ox 99 Oxygen Delivery Method Room Air Weight Weight: 68.4 kg Body Mass Index (BMI) 26.6 Physical Exam Narrative Physical exam: General: Well-nourished, well-developed. Head: Normocephalic, atraumatic, no tenderness Eyes: Vision is grossly intact. EOMI ENT, no trauma, moist mucous membranes, no rhinorrhea Neck: Nontender, No thyromegaly. CVS: Regular rate and rhythm. S1-S2 present. No murmur, gallop or rub. Respiratory : clear to auscultation bilaterally, chest wall nontender Abdomen: Soft, nontender, nondistended, normal bowel sounds, no masses : Deferred Back: Nontender, no CVA tenderness. Extremities: Nontender full range of motion, no trauma Skin: Normal color, no trauma, abrasions Neuro: Alert, oriented, cranial nerves II through XII grossly intact. Psychiatry: Normal mood. Normal affect. Not depressed. Not anxious. Results Lab / Micro Data Attestation: I reviewed the patient's lab results. Result Diagrams: 08/22/22 23:25 08/22/22 23:25 Labs: Laboratory Results - last 24 hr 08/22/22 23:25: WBC 5.2, RBC 2.62 L, Hgb 7.4 L, Hct 22.8 L, MCV 87.0, MCH 28.2, MCHC 32.5, RDW Std Deviation 49.4 H, RDW Coeff of Young 15.5 H, Plt Count 104 L, MPV 13.4 H, Immature Gran % (Auto) 0.200, Neut % (Auto) 62.5, Lymph % (Auto) 15.5 L, [place] % (Auto) 21.0 H, Eos % (Auto) 0.4, Baso % (Auto) 0.4, Absolute Neuts (auto) 3.3, Absolute Lymphs (auto) 0.81 L, Nucleated RBC % 0 08/22/22 23:25: Sodium 132 L, Potassium 2.2 L*, Chloride 87 L, Carbon Dioxide 34.0 H, Anion Gap 11, BUN 66 H, Creatinine 2.12 H, Estim Creat Clear Calc 18.38, Est GFR (MDRD) Af Amer 29 L, Est GFR (MDRD) Non-Af 24 L, BUN/Creatinine Ratio 31.1 H, Glucose 144 H, Calcium 9.3, Magnesium 2.7 H Micro: Microbiology 08/23/22 00:20 Stool Stool Occult Blood (RANULFO) - Final Occult Blood Positive Assessment & Plan Assessment/Plan (1) Hypokalemia: (2) Anemia: (3) Guaiac positive stools: PLAN: Plan Hypokalemia Potassium of 2.2 on presentation. Received potassium IV at the emergency department. Will escalate home p.o. potassium. Trend BMP. Magnesium level is elevated as 2.7. Acute blood loss anemia/guaiac positive stool Positive occult stool at the emergency department. On presentation hemoglobin was 7.4. Hemoglobin on 05/27/2022 was 9.7. Last hemoglobin in [facility] on August 04 2022 was 9.4. Trend H&H. Home p.o. omeprazole. IV Protonix ordered. Keep NPO. GI consult. Heart failure with preserved ejection fraction Patient with pacemaker. Stable. Eliquis held secondary to ABLA Chronic heart failure with preserved ejection fraction Stable Torsemide continued ESTRELLA on CKD stage IIIb Creatinine on 08/22/2022 was 2.12. Creatinine on 05/27/2022 was 1.70. BUN on presentation was 66. BUN over creatinine is 31.1. Likely dehydration secondary to diuretic use. Hold torsemide. Gentle IV hydration. Trend BMP. Hyponatremia/hypochloremia On presentation sodium was 132. Chloride was 87. Likely secondary to hypovolemia IV fluids as above. Hold torsemide. Trend BMP. DVT prophylaxis: SCDs ordered Charges/Coding Visit Charges Inpatient E&M: 27449 Init Hosp L3
[2022-08-23] MEDS: 0.9% Normal Saline 1,000 ML 60 ML IV (05:22)
[2022-08-23 07:05] LABS: Hematocrit 20.9 % (37-47); Hemoglobin 6.6 g/dL (12.0-15.0)
[2022-08-23 07:41] LABS: Anion Gap 9 (5-15); BUN 65 mg/dL (7-18); BUN/Creat Ratio 35.5 RATIO (10-20); Calcium,Total 8.6 mg/dL (8.5-10.1); Chloride 89 mmol/L (98-107); Creatinine, Serum 1.83 mg/dL (0.55-1.02); EST Glomerular Filtration Rate 28 mL/min (>60); Est Glom Filt Rate - Afr Amer 34 mL/min (>60); Glucose 127 mg/dL (74-106); Potassium 2.2 mmol/L (3.5-5.1); Sodium Level 133 mmol/L (136-145)
[2022-08-23] MEDS: Potassium Chloride Oral Tablet 20 MEQ 60 MEQ PO (09:15)
--- NOTE | 2022-08-23 10:10 | US_ITS ---
HISTORY: possible cirrhosis. TECHNIQUE: Nolen scale and color doppler imaging was performed of the right upper quadrant. 82 images. COMPARISON: None. FINDINGS: LIVER: 12.8 cm in length. Heterogeneous echotexture and nodular contour without focal lesion demonstrated. No intrahepatic ductal dilatation. Mild perihepatic ascites versus images showing the cyst in Morison''s pouch. MAIN PORTAL VEIN: Patent with flow in the appropriate direction. COMMON BILE DUCT: 4-5 mm in diameter. GALLBLADDER: Surgically absent. PANCREAS: Partially obscured due to overlying bowel gas. RIGHT KIDNEY: 7.5 cm in length with a cortical thickness of 1.2 cm. No hydronephrosis. 5.1 x 7.5 x 4.8 cm cyst in Morison''s pouch. US/Liver IMPRESSION: Cirrhotic appearance of the liver. 7.5 cm cystic lesion in Morison''s pouch, which may represent loculated ascites, renal cyst, or other abdominal cyst. Recommend correlation with multiphasic CT or MRI. Electronically Signed: Fifi Martin MD at 14:40 EDT ,
--- NOTE | 2022-08-23 11:24 | CON.PCM.GI_ITS ---
HPI Consult Data Date of Consult: 08/23/22 HPI Narrative Reason for Consultation: Anemia HPI Narrative: CARMELITA KASPER, is a 77 F who presents with progressive shortness of breath. She has a history of heart failure with preserved ejection fraction; permanent pacemaker implantation; paroxysmal A-fib on Eliquis ; and chronic hypokalemia wh o presents to the emergency department with low potassium and abnormal.? Patient's check blood potassium because she is on Torsemide.? She reported that her milk drying machine operator in consultation with a urologist prescribed the torsemide. I was called to her because of a hemoglobin of 6.6. Her INR is pending. She also had elevated BUN/creatinine ratio in the ED. On her blood work it looks as if her hemoglobin has been slowly trending down. Her last normal hemoglobin was back in 2020 with 15.4. She said that she has had colonoscopy approximately 5 years ago for screening purposes and it was normal. She did admit to 1 episode of mildly dark stools. She has. A history of chronic thrombocytopenia. [facility] Medical History (HFpEF) heart failure with preserved ejection fraction Chronic kidney disease, stage 3a Diabetes mellitus type 2 in nonobese Hypothyroidism Kidney disease Osteoporosis Rheumatoid arthritis Sick sinus syndrome Home Medications atorvastatin 10 mg tablet (Lipitor) 5 mg PO DAILY cholesterol 10/17/20 [History Last Taken Unknown] omeprazole 20 mg capsule,delayed release 20 mg PO DAILY 02/08/21 [History Last Taken Unknown] potassium chloride 10 mEq tablet,extended release 10 meq PO BID 02/08/21 [History Last Taken Unknown] apixaban 5 mg tablet (Eliquis) 5 mg PO BID 10/12/21 [History Last Taken Unknown] albuterol sulfate 90 mcg/actuation aerosol inhaler (Ventolin HFA) 1 - 2 puff inhalation Q4H PRN PRN Wheezing ##1 05/27/22 [Rx Last Taken Unknown] torsemide 60 mg tablet 80 mg PO DAILY 05/27/22 [History Last Taken Unknown] alendronate 70 mg tablet 70 mg PO GOMEZ 08/23/22 [History Last Taken Unknown] Allergy/AdvReac Type Severity Reaction Status Date / Time codeine Allergy Intermediate rash Verified 08/23/22 02:41 [facility] Allergy Other Verified 08/23/22 02:41 benzoyl peroxide Allergy Swelling Verified 08/23/22 02:41 cetylpyridinium chloride Allergy Other Verified 08/23/22 02:41 Sulfa (Sulfonamide Allergy Other Verified 08/23/22 02:41 Antibiotics) lisinopril AdvReac Other Verified 08/23/22 02:41 mesalamine [From Asacol] AdvReac Vomiting Verified 08/23/22 02:41 nabumetone [From Relafen] AdvReac Vomiting Verified 08/23/22 02:41 Family History Brother Kidney disease Kidney cancer/Left nephrectomy Cancer Mother Cancer colon and breast Colon cancer Sister Cancer breast Surgical History History of ankle surgery History of cholecystectomy History of colonoscopy History of left heart catheterization (11/29/20) History of permanent cardiac pacemaker placement (11/06/20) History of total abdominal hysterectomy History of tubal ligation Social History Smoking Status: Never smoker alcohol intake: never substance use type: does not use caffeine: Yes Type: coffee Number of servings: 1 ROS ROS Narrative Pertinent positives and pertinent negatives as noted in HPI. All other systems were reviewed and are negative Physical Exam Narrative Physical exam: General: Well-nourished, well-developed. Head: Normocephalic, atraumatic, no tenderness Eyes: Vision is grossly intact. EOMI ENT, no trauma, moist mucous membranes, no rhinorrhea Neck: Nontender, No thyromegaly. CVS: Regular rate and rhythm. S1-S2 present. No murmur, gallop or rub. Respiratory : clear to auscultation bilaterally, chest wall nontender Abdomen: Soft, nontender, nondistended, normal bowel sounds, no masses : Deferred Back: Nontender, no CVA tenderness. Extremities: Nontender full range of motion, no trauma Skin: Normal color, no trauma, abrasions Neuro: Alert, oriented, cranial nerves II through XII grossly intact. Psychiatry: Normal mood. Normal affect. Not depressed. Not anxious. Lab / Micro Data Result Diagrams: 08/23/22 06:12 08/23/22 06:12 Labs: Laboratory Results - last 24 hr 08/22/22 23:25: WBC 5.2, RBC 2.62 L, Hgb 7.4 L, Hct 22.8 L, MCV 87.0, MCH 28.2, MCHC 32.5, RDW Std Deviation 49.4 H, RDW Coeff of Young 15.5 H, Plt Count 104 L, MPV 13.4 H, Immature Gran % (Auto) 0.200, Neut % (Auto) 62.5, Lymph % (Auto) 15.5 L, [place] % (Auto) 21.0 H, Eos % (Auto) 0.4, Baso % (Auto) 0.4, Absolute Neuts (auto) 3.3, Absolute Lymphs (auto) 0.81 L, Nucleated RBC % 0 08/22/22 23:25: Sodium 132 L, Potassium 2.2 L*, Chloride 87 L, Carbon Dioxide 34.0 H, Anion Gap 11, BUN 66 H, Creatinine 2.12 H, Estim Creat Clear Calc 18.38, Est GFR (MDRD) Af Amer 29 L, Est GFR (MDRD) Non-Af 24 L, BUN/Creatinine Ratio 31.1 H, Glucose 144 H, Calcium 9.3, Magnesium 2.7 H 08/23/22 01:23: Blood Type A POSITIVE, Antibody Screen NEGATIVE 08/23/22 01:23: Crossmatch See Detail 08/23/22 06:12: Sodium 133 L, Potassium 2.2 L*, Chloride 89 L, Carbon Dioxide 35.0 H, Anion Gap 9, BUN 65 H, Creatinine 1.83 H, Estim Creat Clear Calc 21.30, Est GFR (MDRD) Af Amer 34 L, Est GFR (MDRD) Non-Af 28 L, BUN/Creatinine Ratio 35.5 H, Glucose 127 H, Calcium 8.6 08/23/22 06:12: Hgb 6.6 L, Hct 20.9 L Micro: Microbiology 08/23/22 00:20 Stool Stool Occult Blood (RANULFO) - Final Occult Blood Positive Assessment & Plan Assessment/Plan (1) Hypokalemia: (2) Anemia: (3) Guaiac positive stools: PLAN: Plan Hypokalemia Potassium of 2.2 on presentation. Received potassium IV at the emergency department. She is getting potassium replacement at this time. Will escalate home p.o. potassium. Trend BMP. Magnesium level is elevated as 2.7. Acute blood loss anemia/guaiac positive stool Positive occult stool at the emergency department. On presentation hemoglobin was 7.4. Hemoglobin on 05/27/2022 was 9.7. Last hemoglobin in [facility] on August 04 2022 was 9.4. Currently her hemoglobin is 6.6 and she is getting transfusion of packed red blood cells. Trend H&H. Home p.o. omeprazole. IV Protonix ordered. Possible endoscopy today. Thrombocytopenia-I will get an ultrasound today to see if there is any signs of chronic liver disease as I cannot get a CT scan abdomen pelvis with IV contrast due to CKD in the setting of acute kidney injury. Heart failure with preserved ejection fraction Patient with pacemaker. Stable. Eliquis held secondary to ABLA ESTRELLA on CKD stage IIIb Creatinine on 08/22/2022 was 2.12. Creatinine on 05/27/2022 was 1.70. BUN on presentation was 66. BUN over creatinine is 31.1. Charges/Coding Visit Charges Inpatient E&M: 54693 Init Hosp L3
[2022-08-23 12:15] LABS: Prothrombin Time (Protime)PT. 22.7 SECONDS (11.7-14.9)
--- NOTE | 2022-08-23 15:19 | PCM.HOSP.N ---
Hospitalist Note Was seen and examined briefly today, she was given IV and oral potassium supplementation, I also chose to transfuse 3 units of packed red blood cells today. I talked with gastroenterology about her care. Patient will undergo an EGD today.
--- NOTE | 2022-08-23 16:04 | NURSING ---
assuming care for this pt @ [phone]
--- NOTE | 2022-08-23 16:05 | NURSING ---
pt remains NPO for possible scope per Dr mcleod
[2022-08-23 19:19] LABS: Hematocrit 32.6 % (37-47)
[2022-08-23 19:34] LABS: ALB/GLOB Ratio 0.8 RATIO (0.9-2.4); AST(SGOT) 36 U/L (15-37); Alanine Aminotransfer ALT/SGPT 38 U/L (13-56); Albumin, Serum 3.1 g/dL (3.2-5.0); Alkaline Phosphatase 112 U/L (45-117); Anion Gap 7 (5-15); BUN 60 mg/dL (7-18); BUN/Creat Ratio 36.6 RATIO (10-20); Calcium,Total 8.8 mg/dL (8.5-10.1); Chloride 96 mmol/L (98-107); Creatinine, Serum 1.64 mg/dL (0.55-1.02); EST Glomerular Filtration Rate 32 mL/min (>60); Est Glom Filt Rate - Afr Amer 39 mL/min (>60); Estimated Creatinine Clearance 23.76 ml/min; Globulin 3.7 g/dL (2.2-4.2); Glucose 138 mg/dL (74-106); Protein, Total 6.8 g/dL (6.4-8.2); Sodium Level 135 mmol/L (136-145)
[2022-08-23] MEDS: Atorvastatin Calcium 10 MG Tablet 5 MG PO (20:51)
[2022-08-24 00:09] LABS: Hematocrit 31.2 % (37-47); Hemoglobin 10.2 g/dL (12.0-15.0)
[2022-08-24] MEDS: Potassium Chloride 10mEq/100mL 10 MEQ/100 ML IV.SOLN. 100 MEQ IV BOLUS ×3 (00:39→03:06)
[2022-08-24 03:04] VITALS: BP 104/64; PULSE 59; RESP 16; TEMP 36.3; O2SAT 96
[2022-08-24 05:44] LABS: Absolute Lymphocyte Count 0.87 X10^3/uL (0.83-4.51); Absolute Neutrophil Count 3.2 X10^3/uL (2.0-7.7); Basophil# 0.02 X10^3/uL; Basophil% 0.4 % (0-1); Eosinophil# 0.01 X10^3/uL; Eosinophils% 0.2 % (0-5); Hematocrit 31.2 % (37-47); Hemoglobin 10.4 g/dL (12.0-15.0); Lymphocyte # 0.87 X10^3/ul (0.83-4.51); Lymphocyte % 17.4 % (19-41); Mean Corp Hgb Conc 33.3 g/dL (32-36); Mean Corpuscular Hgb 28.7 pg (27.0-32.0); Mean Corpuscular Volume 86.2 fL (81-99); Mean Platelet Vol. 13.1 fl (6.2-12.0); Monocyte# 0.88 X10^3/uL; Monocyte% 17.6 % (0-10); NRBC Flagged by Analyzer 0 % (0-5); POSITIVE COUNT YES; Platelet Count 91 K/mm3 (150-450); RBC Distribution Width CV 15.4 % (11.6-14.6); RBC Distribution Width SD 48.8 fl (35.1-43.9); Red Blood Count 3.62 M/mm3 (4.2-5.4)
[2022-08-24 05:50] LABS: International Normalized Ratio 1.6; Prothrombin Time (Protime)PT. 18.5 SECONDS (11.7-14.9)
[2022-08-24 05:51] LABS: Partial Thromboplast Time 37.7 Seconds (24.1-36.2)
--- NOTE | 2022-08-24 05:55 | EKG12_ITS ---
Test Reason : AM EKG Blood Pressure : / mmHG Vent. Rate : 063 BPM Atrial Rate : 063 BPM P-R Int : 226 ms QRS Dur : 094 ms QT Int : 410 ms P-R-T Axes : 000 060 015 degrees QTc Int : 419 ms Atrial-paced rhythm with prolonged AV conduction Abnormal ECG When compared with ECG of 24-AUG-2022 04:45, MANUAL COMPARISON REQUIRED, DATA IS UNCONFIRMED Confirmed by ADA HERRERA, ALICE ([id number]), greeting card editor JOSEPH HORAN ([id number]) on 08/27/2022 10:11:39 AM Referred By: ARNALDO Confirmed By:BERENICE CABALLERO MD
[2022-08-24 09:05] VITALS: BP 108/66; PULSE 59; RESP 16; TEMP 36.6; O2SAT 98
[2022-08-24] MEDS: Potassium Chloride Oral Tablet 20 MEQ 40 MEQ PO ×2 (09:11→17:22)
[2022-08-24 09:30] LABS: Anion Gap 8 (5-15); BUN 58 mg/dL (7-18); BUN/Creat Ratio 36.5 RATIO (10-20); Chloride 98 mmol/L (98-107); Creatinine, Serum 1.59 mg/dL (0.55-1.02); EST Glomerular Filtration Rate 33 mL/min (>60); Est Glom Filt Rate - Afr Amer 40 mL/min (>60); Estimated Creatinine Clearance 24.51 ml/min; Glucose 117 mg/dL (74-106); Potassium 3.5 mmol/L (3.5-5.1); Sodium Level 135 mmol/L (136-145)
[2022-08-24 14:25] VITALS: BP 108/61; PULSE 66; RESP 16; TEMP 36.6; O2SAT 100
--- NOTE | 2022-08-24 17:53 | PCM.PN.HOSP ---
Reason for Visit Reason for Visit: Diagnoses Anemia, unspecified (08/23/22) Hypokalemia (08/23/22) Other fecal abnormalities (08/23/22) Subjective Subjective Patient was seen and examined today, her hemoglobin today was 10.4, potassium was corrected. Creatinine today was 1.59 and BUN was 58. Ultrasound of the liver showed cirrhotic appearance of the liver with a 7.5 cm cystic lesion in Morison's pouch which may represent localized ascites renal cyst or other abdominal cyst. Objective Data Objective Data Vital Signs: Vital Signs Temp Pulse Resp BP Pulse Ox O2 Del Method 97.8 F 66 16 108/61 100 Room Air 08/24/22 14:25 08/24/22 14:25 08/24/22 14:25 08/24/22 14:25 08/24/22 14:25 08/24/22 14:25 Oxygen Delivery Method Room Air Weight: 66.3 kg Body Mass Index (BMI) 25.9 Intake & Output: Intake and Output for Last 24 Hours 08/22/22 08/23/22 08/24/22 23:59 23:59 23:59 Intake Total 2625 / 2625 510 / 510 Balance 2625 / 2625 510 / 510 Lab / Micro Data Result Diagrams: 08/24/22 05:03 08/24/22 05:03 Labs: Laboratory Results - last 24 hr 08/23/22 01:23: Crossmatch See Detail 08/23/22 19:05: Hgb 11.0 L, Hct 32.6 L 08/23/22 19:05: Sodium 135 L, Potassium 3.0 L, Chloride 96 L, Carbon Dioxide 32.0, Anion Gap 7, BUN 60 H, Creatinine 1.64 H, Estim Creat Clear Calc 23.76, Est GFR (MDRD) Af Amer 39 L, Est GFR (MDRD) Non-Af 32 L, BUN/Creatinine Ratio 36.6 H, Glucose 138 H, Calcium 8.8, Total Bilirubin 6.60 H, AST 36, ALT 38, Alkaline Phosphatase 112, Total Protein 6.8, Albumin 3.1 L, Globulin 3.7, Albumin/Globulin Ratio 0.8 L 08/23/22 23:47: Hgb 10.2 L, Hct 31.2 L 08/24/22 05:03: WBC 5.0, RBC 3.62 L, Hgb 10.4 L, Hct 31.2 L, MCV 86.2, MCH 28.7, MCHC 33.3, RDW Std Deviation 48.8 H, RDW Coeff of Young 15.4 H, Plt Count 91 L, MPV 13.1 H, Immature Gran % (Auto) 0.400, Neut % (Auto) 64.0, Lymph % (Auto) 17.4 L, [place] % (Auto) 17.6 H, Eos % (Auto) 0.2, Baso % (Auto) 0.4, Absolute Neuts (auto) 3.2, Absolute Lymphs (auto) 0.87, Nucleated RBC % 0 08/24/22 05:03: PT 18.5 H, INR 1.6, APTT 37.7 H 08/24/22 05:03: TSH 4.20 H 08/24/22 05:03: Sodium 135 L, Potassium 3.5, Chloride 98, Carbon Dioxide 29.0, Anion Gap 8, BUN 58 H, Creatinine 1.59 H, Estim Creat Clear Calc 24.51, Est GFR (MDRD) Af Amer 40 L, Est GFR (MDRD) Non-Af 33 L, BUN/Creatinine Ratio 36.5 H, Glucose 117 H, Calcium 9.0 Micro: Microbiology 08/23/22 00:20 Stool Stool Occult Blood (RANULFO) - Final Occult Blood Positive Physical Exam Const alert, oriented x3, no apparent distress and healthy appearing General Appearance: cooperative, well kempt and well developed Orientation / Consciousness: awake, oriented to person, oriented to place and oriented to time HEENT normocephalic, head/scalp atraumatic and moist oral mucous membranes Eyes PERRL, EOMs intact bilaterally and conjunctivae normal Neck supple, no JVD and thyroid normal General: trachea midline Resp normal respiratory effort, no retractions, no use of accessory muscles and clear to auscultation bilaterally Auscultation: Negative for rales, rhonchi or wheezes Cardio regular rate, regular rhythm, S1 normal heart sound, S2 normal heart sound, no murmurs, no rub and no gallops GI normal to inspection, nondistended, normoactive bowel sounds, soft to palpation, non-tender and non-distended Extremity no clubbing, cyanosis or edema Skin no rashes or lesions noted General Skin Exam: no breakdown Neuro oriented x3, CN's II-XII intact bilaterally, moves all extremities, no focal motor deficits and no sensory deficits noted Sensorium / Orientation: awake and alert Speech: speech normal Psych affect normal Assessment & Plan Assessment/Plan (1) Anemia: PLAN: Plan 1. Acute blood loss anemia from GI source (probable upper GI bleed)-requiring blood transfusion-patient will undergo an EGD tomorrow, I will repeat her CBC tomorrow #2 hypokalemia-this is corrected at this time, patient will remain off her diuretics #3 elevated bilirubin-etiology unclear, possibly secondary to cirrhosis of the liver, repeat liver profile in the morning #4 cirrhosis of the liver-etiology unclear, this will need further work-up as an outpatient #5 paroxysmal atrial fibrillation-patient is off Eliquis at this time due to GI bleeding #6 hyperlipidemia-patient is on atorvastatin #7 chronic congestive heart failure with preserved ejection fraction-patient will will stay off her diuretics at this time Total clinical time spent by myself addressing the patient's medical issues, reviewing all of her data, and collaborating with patient's care team: 35 minutes Charges/Coding Visit Charges Inpatient E&M: 73729 Subs Hosp L2
[2022-08-24 22:18] VITALS: BP 105/58; PULSE 61; RESP 16; TEMP 36.6; O2SAT 98
[2022-08-24] MEDS: Atorvastatin Calcium 10 MG Tablet 5 MG PO (22:25)
[2022-08-24] MEDS: 0.9% Saline Lock 10 ML Syringe IV (22:25)
[2022-08-25] VITALS (10 sets, daily range): BP systolic 89–120; BP diastolic 51–69; PULSE 60–64; RESP 16–18; TEMP 36.2–36.7; O2SAT 95–97; BMI 27.9
[2022-08-25 04:34] LABS: Absolute Lymphocyte Count 0.88 X10^3/uL (0.83-4.51); Absolute Neutrophil Count 5.1 X10^3/uL (2.0-7.7); Basophil# 0.03 X10^3/uL; Basophil% 0.4 % (0-1); Eosinophil# 0.03 X10^3/uL; Eosinophils% 0.4 % (0-5); Hematocrit 31.1 % (37-47); Hemoglobin 10.1 g/dL (12.0-15.0); Lymphocyte # 0.88 X10^3/ul (0.83-4.51); Lymphocyte % 12.1 % (19-41); Mean Corp Hgb Conc 32.5 g/dL (32-36); Mean Corpuscular Hgb 28.5 pg (27.0-32.0); Mean Corpuscular Volume 87.6 fL (81-99); Mean Platelet Vol. 13.1 fl (6.2-12.0); Monocyte# 1.18 X10^3/uL; Monocyte% 16.2 % (0-10); NRBC Flagged by Analyzer 0 % (0-5); Neutrophil # 5.13 X10^3/uL (2.7-7.7); Neutrophil % 70.6 % (47-70); POSITIVE COUNT YES; Platelet Count 94 K/mm3 (150-450); RBC Distribution Width CV 15.5 % (11.6-14.6); RBC Distribution Width SD 49.5 fl (35.1-43.9); Red Blood Count 3.55 M/mm3 (4.2-5.4); White Blood Count 7.3 K/mm3 (4.4-11.0)
[2022-08-25 04:45] LABS: International Normalized Ratio 1.4; Prothrombin Time (Protime)PT. 16.9 SECONDS (11.7-14.9)
[2022-08-25 04:46] LABS: Partial Thromboplast Time 34.1 Seconds (24.1-36.2)
[2022-08-25 04:54] LABS: ALB/GLOB Ratio 0.8 RATIO (0.9-2.4); AST(SGOT) 32 U/L (15-37); Alanine Aminotransfer ALT/SGPT 33 U/L (13-56); Albumin, Serum 2.9 g/dL (3.2-5.0); Alkaline Phosphatase 105 U/L (45-117); Anion Gap 4 (5-15); BUN 53 mg/dL (7-18); BUN/Creat Ratio 32.1 RATIO (10-20); Calcium,Total 9.1 mg/dL (8.5-10.1); Chloride 99 mmol/L (98-107); Creatinine, Serum 1.65 mg/dL (0.55-1.02); EST Glomerular Filtration Rate 32 mL/min (>60); Est Glom Filt Rate - Afr Amer 39 mL/min (>60); Estimated Creatinine Clearance 23.62 ml/min; Globulin 3.7 g/dL (2.2-4.2); Glucose 173 mg/dL (74-106); Potassium 4.3 mmol/L (3.5-5.1); Protein, Total 6.6 g/dL (6.4-8.2); Sodium Level 133 mmol/L (136-145)
--- NOTE | 2022-08-25 05:55 | EKG12_ITS ---
Test Reason : Blood Pressure : / mmHG Vent. Rate : 060 BPM Atrial Rate : 060 BPM P-R Int : 226 ms QRS Dur : 080 ms QT Int : 392 ms P-R-T Axes : 000 074 069 degrees QTc Int : 392 ms Atrial-paced rhythm with prolonged AV conduction Low voltage QRS Nonspecific ST and T wave abnormality Abnormal ECG When compared with ECG of 22-AUG-2022 23:38, MANUAL COMPARISON REQUIRED, DATA IS UNCONFIRMED Confirmed by ADA HERRERA, ALICE ([id number]), script editor JOSEPH HORAN ([id number]) on 08/27/2022 10:14:39 AM Referred By: Confirmed By:BERENICE CABALLERO MD
--- NOTE | 2022-08-25 09:45 | CASEMGMT ---
RN SHEA Face to Face with patient for initial transition planning/care coordination assessment. RN CM introduced self and role at [facility]. Patient lying in bed, alert and oriented. Patient willing to participate in assessment and is able to answer all questions appropriately. Care providers, pharmacy, and demographics verified. Patient wishes to discharge home, denies need for home health at this time. Patient states she has no further needs or concerns at this time. CM to follow for discharge planning needs that may arise. PCP: Francisco Specialists: Demetrice, doctor podiatric medicine; Medardo, Motors Assembler Alvin; Rocio Chopra Soot Blower; [facility] Rocio Shift Engineer Preferred Pharmacy: [facility] Insurance: [employer] Prescription Benefit: yes Living Will/HPOA: yes, [place] Kate LNOK: Living Arrangements: Patient lives with in a single story home with 1 step and grab bar to enter the home. Patient states she is independent at home. Transportation: self, DME/HHC: Patient has shower, raised toilet, cane, walker, and grab bars at home. No previous HHC or SNF. Disposition Plan: Patient to discharge home with family support and follow-up plans in place. Kristie SNYDER, RN, CM
[2022-08-25] MEDS: Lactated Ringers 1,000 ML 15 ML IV (16:43)
--- NOTE | 2022-08-25 17:14 | OP.EGD_ITS ---
Patient Name: Kendra Kate Procedure Date: 08/25/2022 4:07 PM Date of : 1945 Age: 77 Procedure: Upper GI endoscopy Indications: Iron deficiency anemia, Cirrhosis with suspected esophageal varices Providers: Anthony Cardenas DO Medicines: Monitored Anesthesia Care Patient Profile: This is a 77 year old female. Refer to note in patient chart for documentation of history and physical. Patient has symptoms. Complications: No immediate complications. Procedure: Pre-Anesthesia Assessment: - Prior to the procedure, a History and Physical was performed, and patient medications and allergies were reviewed. The patient is competent. The risks and benefits of the procedure and the sedation options and risks were discussed with the patient. All questions were answered and informed consent was obtained. Patient identification and proposed procedure were verified by the physician in the pre-procedure area. Mental Status Examination: alert and oriented. Airway Examination: normal oropharyngeal airway and neck mobility. Respiratory Examination: clear to auscultation. CV Examination: normal. Prophylactic Antibiotics: The patient does not require prophylactic antibiotics. Prior Anticoagulants: The patient has taken no previous anticoagulant or antiplatelet agents. ASA Grade Assessment: II - A patient with mild systemic disease. After reviewing the risks and benefits, the patient was deemed in satisfactory condition to undergo the procedure. The anesthesia plan was to use monitored anesthesia care (MAC). Immediately prior to administration of medications, the patient was re-assessed for adequacy to receive sedatives. The heart rate, respiratory rate, oxygen saturations, blood pressure, adequacy of pulmonary ventilation, and response to care were monitored throughout the procedure. The physical status of the patient was re-assessed after the procedure. After obtaining informed consent, the endoscope was passed under direct vision. Throughout the procedure, the patient's blood pressure, pulse, and oxygen saturations were monitored continuously. The Endoscope was introduced through the mouth, and advanced to the second part of duodenum. The upper GI endoscopy was accomplished without difficulty. The patient tolerated the procedure well. Scope In: 5:01:43 PM Scope Out: 5:06:08 PM Total Procedure Duration Time 0 hours 4 minutes 25 seconds Findings: Grade II varices were found in the lower third of the esophagus. They were 5 mm in largest diameter. One band was successfully placed with complete eradication, resulting in deflation of varices. Bleeding had stopped at the end of the procedure. A small hiatal hernia was present. The cardia and gastric fundus were normal on retroflexion. No other significant abnormalities were identified in a careful examination of the stomach. Three 5 mm angiodysplastic lesions with bleeding were found in the first portion of the duodenum. Coagulation for hemostasis using heater probe was successful. Estimated blood loss was minimal. Impression: - Grade II esophageal varices. Completely eradicated. Banded. - Small hiatal hernia. - Three bleeding angiodysplastic lesions in the duodenum. Treated with a heater probe. - No specimens collected. Recommendation: - [facility]. - Resume previous diet. - Continue present medications. Procedure Code(s): --- Professional --- 66681, Esophagogastroduodenoscopy, flexible, transoral; with band ligation of esophageal/gastric varices 52588, 59,51, Esophagogastroduodenoscopy, flexible, transoral; with control of bleeding, any method CPT copyright 2017 [employer]. All rights reserved. The codes documented in this report are preliminary and upon mannequin decorator review may be revised to meet current compliance requirements. Anthony Cardenas DO 08/25/2022 5:14:03 PM This report has been signed electronically. Number of Addenda: 0 Note Initiated On: 08/25/2022 4:07 PM
--- NOTE | 2022-08-25 17:15 | OP.CCLET_ITS ---
08/25/2022 Mirza Singh [address] [place] [address] Re : Upper GI endoscopy procedure for Kendra Kate Dear Dr. Singh This procedure was performed on Thursday, August 25, 2022. My impressions and recommendations are as follows: Impressions : - Grade II esophageal varices. Completely eradicated. Banded. - Small hiatal hernia. - Three bleeding angiodysplastic lesions in the duodenum. Treated with a heater probe. - No specimens collected. Recommendations : - [facility]. - Resume previous diet. - Continue present medications. My findings are described in the full procedure note, which is enclosed. If I can be of further assistance, please feel free to contact me at . Sincerely, Anthony Cardenas, 08/25/2022 5:14:03 PM This report has been signed electronically.
--- NOTE | 2022-08-25 17:19 | PCM.PN.HOSP ---
Reason for Visit Reason for Visit: Diagnoses Anemia, unspecified (08/23/22) Hypokalemia (08/23/22) Other fecal abnormalities (08/23/22) Subjective Subjective Was seen and examined today, she underwent an EGD today which showed a duodenal AVM and 1 esophageal varices which was banded. We will get another CBC on the patient in the morning. Patient's hemoglobin this morning was 10.1. Objective Data Objective Data Vital Signs: Vital Signs Temp Pulse Resp BP Pulse Ox O2 Del Method 97.2 F L 60 18 90/51 L 95 Room Air 08/25/22 17:12 08/25/22 17:15 08/25/22 17:15 08/25/22 17:15 08/25/22 17:15 08/25/22 17:15 Oxygen Delivery Method Room Air Weight: 71.622 kg Body Mass Index (BMI) 27.9 Intake & Output: Intake and Output for Last 24 Hours 08/23/22 08/24/22 08/25/22 23:59 23:59 23:59 Intake Total 2625 / 2625 620 / 620 110 / 110 Balance 2625 / 2625 620 / 620 110 / 110 Lab / Micro Data Result Diagrams: 08/25/22 04:04 08/25/22 04:04 Labs: Laboratory Results - last 24 hr 08/25/22 04:04: WBC 7.3, RBC 3.55 L, Hgb 10.1 L, Hct 31.1 L, MCV 87.6, MCH 28.5, MCHC 32.5, RDW Std Deviation 49.5 H, RDW Coeff of Young 15.5 H, Plt Count 94 L, MPV 13.1 H, Immature Gran % (Auto) 0.300, Neut % (Auto) 70.6 H, Lymph % (Auto) 12.1 L, [place] % (Auto) 16.2 H, Eos % (Auto) 0.4, Baso % (Auto) 0.4, Absolute Neuts (auto) 5.1, Absolute Lymphs (auto) 0.88, Nucleated RBC % 0 08/25/22 04:04: Sodium 133 L, Potassium 4.3, Chloride 99, Carbon Dioxide 30.0, Anion Gap 4 L, BUN 53 H, Creatinine 1.65 H, Estim Creat Clear Calc 23.62, Est GFR (MDRD) Af Amer 39 L, Est GFR (MDRD) Non-Af 32 L, BUN/Creatinine Ratio 32.1 H, Glucose 173 H, Calcium 9.1, Total Bilirubin 4.20 H, AST 32, ALT 33, Alkaline Phosphatase 105, Total Protein 6.6, Albumin 2.9 L, Globulin 3.7, Albumin/Globulin Ratio 0.8 L 08/25/22 04:04: PT 16.9 H, INR 1.4, APTT 34.1 Micro: Microbiology 08/23/22 00:20 Stool Stool Occult Blood (RANULFO) - Final Occult Blood Positive Physical Exam Narrative alert, oriented x3, no apparent distress and healthy appearing General Appearance: cooperative, well kempt and well developed Orientation / Consciousness: awake, oriented to person, oriented to place and oriented to time HEENT normocephalic, head/scalp atraumatic and moist oral mucous membranes Eyes PERRL, EOMs intact bilaterally and conjunctivae normal Neck supple, no JVD and thyroid normal General: trachea midline Resp normal respiratory effort, no retractions, no use of accessory muscles and clear to auscultation bilaterally Auscultation: Negative for rales, rhonchi or wheezes Cardio regular rate, regular rhythm, S1 normal heart sound, S2 normal heart sound, no murmurs, no rub and no gallops GI normal to inspection, nondistended, normoactive bowel sounds, soft to palpation, non-tender and non-distended Extremity no clubbing, cyanosis or edema Skin no rashes or lesions noted General Skin Exam: no breakdown Neuro oriented x3, CN's II-XII intact bilaterally, moves all extremities, no focal motor deficits and no sensory deficits noted Sensorium / Orientation: awake and alert Speech: speech normal Psych affect normal Assessment & Plan Assessment/Plan (1) Hypokalemia: (2) Anemia: PLAN: Plan 1. Acute blood loss anemia from GI source (probable upper GI bleed)-requiring blood transfusion-patient underwent an EGD today that showed a duodenal AVM and an esophageal varices which was banded, CBC will be repeated in the morning #2 hypokalemia-this is corrected at this time, patient will remain off her diuretics, patient has no signs of congestive heart failure at this time #3 elevated bilirubin-etiology unclear, possibly secondary to cirrhosis of the liver, bilirubin today was 4.2 which was improved over admission #4 cirrhosis of the liver-etiology unclear, this will need further work-up as an outpatient #5 paroxysmal atrial fibrillation-patient is off Eliquis at this time due to GI bleeding, it is unclear when the patient will be able to resume full anticoagulation, this subject will have to be discussed with GI and perhaps cardiology. #6 hyperlipidemia-patient is on atorvastatin #7 chronic congestive heart failure with preserved ejection fraction-patient will will stay off her diuretics at this time, according to her medical record in 2020 patient underwent a cardiac catheterization to did not show coronary artery disease. 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
[2022-08-25] MEDS: Potassium Chloride Oral Tablet 20 MEQ 40 MEQ PO (18:17)
[2022-08-25] MEDS: Atorvastatin Calcium 10 MG Tablet 5 MG PO (21:14)
[2022-08-25] MEDS: 0.9% Saline Lock 10 ML Syringe IV (22:33)
[2022-08-26] VITALS (7 sets, daily range): BP systolic 97–109; BP diastolic 57–65; PULSE 59–65; RESP 18–19; TEMP 36.4–36.8; O2SAT 96–99
--- NOTE | 2022-08-26 00:58 | EX.EMERGENCY ---
EMERGENCY DOCUMENTATION INITIATED: Date: 08/22/2022 Time: 1900 Initiated at beginning of Shift by Charge and Smoking Pipes Cleaner
[2022-08-26 04:51] LABS: Absolute Lymphocyte Count 0.87 X10^3/uL (0.83-4.51); Basophil# 0.02 X10^3/uL; Basophil% 0.3 % (0-1); Eosinophil# 0.06 X10^3/uL; Hematocrit 31.5 % (37-47); Hemoglobin 10.1 g/dL (12.0-15.0); Lymphocyte # 0.87 X10^3/ul (0.83-4.51); Lymphocyte % 14.5 % (19-41); Mean Corp Hgb Conc 32.1 g/dL (32-36); Mean Corpuscular Hgb 28.8 pg (27.0-32.0); Mean Corpuscular Volume 89.7 fL (81-99); Mean Platelet Vol. 12.9 fl (6.2-12.0); Monocyte# 1.06 X10^3/uL; Monocyte% 17.7 % (0-10); NRBC Flagged by Analyzer 0 % (0-5); Neutrophil # 3.97 X10^3/uL (2.7-7.7); Neutrophil % 66.3 % (47-70); POSITIVE COUNT YES; Platelet Count 96 K/mm3 (150-450); RBC Distribution Width CV 15.7 % (11.6-14.6); RBC Distribution Width SD 51.3 fl (35.1-43.9); Red Blood Count 3.51 M/mm3 (4.2-5.4)
[2022-08-26] MEDS: Albuterol 2.5 MG/3 ML VIAL.NEB. INHALATION (05:59)
[2022-08-26] MEDS: Potassium Chloride Oral Tablet 20 MEQ 40 MEQ PO ×2 (08:48→17:12)
--- NOTE | 2022-08-26 13:44 | PN_ITS ---
Subjective Subjective Patient underwent an upper endoscopy yesterday. She is not having any chest pain, shortness of breath and is tolerating a diet. Her hemoglobin is consistent at 10.1 today. Objective Data Objective Data Vital Signs: Vital Signs Temp Pulse Resp BP Pulse Ox O2 Del Method 98.0 F 59 L 18 109/63 99 Room Air 08/26/22 09:59 08/26/22 09:59 08/26/22 09:59 08/26/22 09:59 08/26/22 09:59 08/26/22 09:59 Oxygen Delivery Method Room Air Weight: 157 lb 14.392 oz Body Mass Index (BMI) 27.9 Intake & Output: Intake and Output for Last 24 Hours 08/24/22 08/25/22 08/26/22 23:59 23:59 23:59 Intake Total 620 / 620 126.5 / 126.5 220 / 220 Balance 620 / 620 126.5 / 126.5 220 / 220 Lab / Micro Data Result Diagrams: 08/26/22 03:42 08/25/22 04:04 Labs: Laboratory Results - last 24 hr 08/26/22 03:42: WBC 6.0, RBC 3.51 L, Hgb 10.1 L, Hct 31.5 L, MCV 89.7, MCH 28.8, MCHC 32.1, RDW Std Deviation 51.3 H, RDW Coeff of Young 15.7 H, Plt Count 96 L, MPV 12.9 H, Immature Gran % (Auto) 0.200, Neut % (Auto) 66.3, Lymph % (Auto) 14.5 L, [place] % (Auto) 17.7 H, Eos % (Auto) 1.0, Baso % (Auto) 0.3, Absolute Neuts (auto) 4.0, Absolute Lymphs (auto) 0.87, Nucleated RBC % 0 Micro: Microbiology 08/23/22 00:20 Stool Stool Occult Blood (RANULFO) - Final Occult Blood Positive Physical Exam Narrative alert, oriented x3, no apparent distress and healthy appearing General Appearance: cooperative, well kempt and well developed Orientation / Consciousness: awake, oriented to person, oriented to place and oriented to time HEENT normocephalic, head/scalp atraumatic and moist oral mucous membranes Eyes PERRL, EOMs intact bilaterally and conjunctivae normal Neck supple, no JVD and thyroid normal General: trachea midline Resp normal respiratory effort, no retractions, no use of accessory muscles and clear to auscultation bilaterally Auscultation: Negative for rales, rhonchi or wheezes Cardio regular rate, regular rhythm, S1 normal heart sound, S2 normal heart sound, no murmurs, no rub and no gallops GI normal to inspection, nondistended, normoactive bowel sounds, soft to palpation, non-tender and non-distended Extremity no clubbing, cyanosis or edema Skin no rashes or lesions noted General Skin Exam: no breakdown Neuro oriented x3, CN's II-XII intact bilaterally, moves all extremities, no focal motor deficits and no sensory deficits noted Sensorium / Orientation: awake and alert Speech: speech normal Psych affect normal Assessment & Plan Assessment/Plan (1) Anemia: PLAN: Plan 1. Acute blood loss anemia from GI source (probable upper GI bleed in a patient with cirrhosis-requiring blood transfusion-patient underwent an EGD with discovered to have grade 1 esophageal varices that were banded and angiodysplas tic lesion was treated., I will repeat her CBC tomorrow #2 hypokalemia-this is corrected at this time, patient will remain off her diuretics #3 elevated bilirubin-etiology unclear, possibly secondary to cirrhosis of the liver, repeat liver profile in the morning #4 cirrhosis of the liver-etiology unclear, this will need further work-up as an outpatient #5 paroxysmal atrial fibrillation-patient is off Eliquis at this time due to GI bleeding #6 hyperlipidemia-patient is on atorvastatin #7 chronic congestive heart failure with preserved ejection fraction-patient will will stay off her diuretics at this time \ Charges/Coding Visit Charges Inpatient E&M: 99842 Subs Hosp L3
--- NOTE | 2022-08-26 15:55 | PN.HOSP_ITS ---
Subjective Subjective Doing well, no issues overnight Objective Data Objective Data Vital Signs: Vital Signs Temp Pulse Resp BP Pulse Ox O2 Del Method 98.3 F 61 18 97/65 98 Room Air 08/26/22 14:31 08/26/22 14:31 08/26/22 14:31 08/26/22 14:31 08/26/22 14:31 08/26/22 14:31 Oxygen Delivery Method Room Air Weight: 157 lb 14.392 oz Body Mass Index (BMI) 27.9 Intake & Output: Intake and Output for Last 24 Hours 08/25/22 08/26/22 08/27/22 03:59 03:59 03:59 Intake Total 320 / 320 126.5 / 126.5 220 / 220 Balance 320 / 320 126.5 / 126.5 220 / 220 Lab / Micro Data Result Diagrams: 08/26/22 03:42 08/25/22 04:04 Labs: Laboratory Results - last 24 hr 08/26/22 03:42: WBC 6.0, RBC 3.51 L, Hgb 10.1 L, Hct 31.5 L, MCV 89.7, MCH 28.8, MCHC 32.1, RDW Std Deviation 51.3 H, RDW Coeff of Young 15.7 H, Plt Count 96 L, MPV 12.9 H, Immature Gran % (Auto) 0.200, Neut % (Auto) 66.3, Lymph % (Auto) 14.5 L, [place] % (Auto) 17.7 H, Eos % (Auto) 1.0, Baso % (Auto) 0.3, Absolute Neuts (auto) 4.0, Absolute Lymphs (auto) 0.87, Nucleated RBC % 0 Micro: Microbiology 08/23/22 00:20 Stool Stool Occult Blood (RANULFO) - Final Occult Blood Positive Physical Exam Narrative General: Alert, Oriented x3, Cooperative, No apparent distress HEENT: Atraumatic, PERRLA, EOMI, Normocephalic Oral: Moist Mucosa Neck: Supple, No JVD Lungs: Diminished, Normal air movement, No rhonchi, No wheeze, No rales Cardiovascular: Regular rate, Regular Rhythm, Normal S1, Normal S2, No murmurs Abdomen: Soft, Non Tender, Non-Distended, No Hepato-splenomegaly Extremities: No edema, Capillary Refill Less than 3 Seconds Skin: No rashes, No breakdown Musculoskeletal: No Tenderness to Palpation of Joints or Extremities Neurological: Cranial nerves II-XII grossly intact, Motor Exam 5/5 strength throughout, Sensory exam intact to light touch and pain Psych/Mental Status: Normal Affect, Appropriate Assessment & Plan Assessment/Plan (1) Hypokalemia: (2) Anemia: PLAN: Plan 1. 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 Hemoglobin is stable at 10.1 ?We will continue with PPI ? PT/OT evaluation is pending there is some question of weakness however she did not work with therapy on August 23 so we are still awaiting their evaluation ? She will have further work-up for cirrhosis as an outpatient 2. Chronic diastolic CHF/paroxysmal A-fib/HLD/history of cardiac pacemaker for bradycardia ? Blood pressures are stable ? Will hold her Eliquis but given that all her lesions were treated she can likely restart her Eliquis after discharge ? Continue with Lipitor ? We will continue to hold torsemide DVT: SCDs Charges/Coding Visit Charges Inpatient E&M: 13131 Subs Hosp L2
--- NOTE | 2022-08-26 16:07 | DCINST_ITS ---
Discharge Instructions Diet Discharge Diet: Low fat / Low cholesterol Activity Discharge Activity: Return to Normal Activity Dressing / Incision Call your doctor if you observe: Fever of 101 or Higher, Shortness of breath, Dizziness, Fainting spells, Swelling in the ankles, Chest pain and Increased palpitations (irregular heartbeat) Follow Up Care Test Results: Test results from this visit will be discussed in further detail at your follow- up appointment, if applicable. Discharge Plan Admission Admit Date/Time: 08/23/22 14:39 Attending Provider: Josue Romeo Primary Care Provider: Mirza Singh Consulting Providers: Rikki Chappell ; Harjinder Rivas Discharge Orders/Prescriptions Prescriptions: New pantoprazole [Protonix] 40 mg tablet,delayed release (DR/EC) 40 mg PO BID Qty: 60 0RF Continued omeprazole 20 mg capsule,delayed release(DR/EC) 20 mg PO DAILY atorvastatin [Lipitor] 10 mg tablet 5 mg PO DAILY potassium chloride 10 mEq tablet extended release 10 meq PO BID Label Comments: T Rx Instructions: 3 times a week torsemide 60 mg Tablet 80 mg PO DAILY albuterol sulfate [Ventolin HFA] 90 mcg/actuation HFA aerosol inhaler 1 - 2 puff inhalation Q4H PRN PRN (Reason: Wheezing) Qty: 1 0RF alendronate 70 mg tablet 70 mg PO GOMEZ Held Eliquis 5 mg Tablet 5 mg PO BID Hold Instructions: Resume on 09/01/22. Referrals / Follow Up: Anthony Cardenas DO [Med Staff - Active Staff] - Within 1 Month Mirza Singh MD [Primary Care Provider] - 09/01/22 2:20 pm Disposition Disposition (needs filled in before D/C Order can be placed): Home, Self Care
--- NOTE | 2022-08-26 16:09 | DS.PCM_ITS ---
Providers Date of Admission: 08/23/22 Primary Care Physician: Dr. Mirza Singh MD Consultations 08/23/22 08:09 Consult: Gastroenterology Routine Consulting Provider: [facility] Reason for Consult: blood loss anemia EMERGENT Consult: No MD Notified: Yes Date Notified: 08/23/22 Time Notified: 08:09 Method of Notification: Verbal Reason For Visit: HYPOKALEMIA; ABLA Diagnosis Discharge Diagnosis (1) Hypokalemia: Status: Acute Code(s): E87.6 - Hypokalemia (2) Anemia: Status: Acute Code(s): D64.9 - Anemia, unspecified Medications at Discharge Home Medications atorvastatin 10 mg tablet (Lipitor) 5 mg PO DAILY cholesterol 10/17/20 omeprazole 20 mg capsule,delayed release 20 mg PO DAILY 02/08/21 potassium chloride 10 mEq tablet,extended release 10 meq PO BID 02/08/21 apixaban 5 mg tablet (Eliquis) 5 mg PO BID 10/12/21 albuterol sulfate 90 mcg/actuation aerosol inhaler (Ventolin HFA) 1 - 2 puff inhalation Q4H PRN PRN Wheezing ##1 05/27/22 torsemide 60 mg tablet 80 mg PO DAILY 05/27/22 alendronate 70 mg tablet 70 mg PO GOMEZ 08/23/22 pantoprazole 40 mg tablet,delayed release (Protonix) 40 mg PO BID #60 tabs 08/26/22 Hospital Course Operations None Procedures EGD Summary of Care Provided Minutes Spent on Discharge: 38 Hospital Course: Per HPI: CARMELITA KASPER, is a 77 F with a significant history of heart failure with preserved ejection fraction; permanent pacemaker implantation; paroxysmal A-fib; and chronic hypokalemia who presents to the emergency department with low potassium and abnormal.? Patient's check blood potassium because she is on Torse mide.? She reported that her radar engineering teacher in consultation with a urologist prescribed the torsemide. She reports worsened leg weakness in the past week that has required her to use a cane.? She reports cramps in her bilateral hands and legs. She is constipated and she has nausea.? She reported abdominal symptoms that is reminiscent of previous when she had an ulcer. At the emergency department her potassium was 2.2.? She received IV potassium.? Also patient was found to have a drop in her hemoglobin.? Emergency department with reported that rectal exams was unremarkable.? However patient had positive occult stools. Hospital Course: 1. 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 Hemoglobin is stable at 10.1 ?We will continue with PPI twice daily on discharge ? PT and OT were able to evaluate her and felt that she was stable for discharge home ? She will have further work-up for cirrhosis as an outpatient ? I discussed with her the plan for possible discharge today and she expressed understanding of the risk benefits of going home and would like to go home today. I do recommend that she follow-up with her PCP in 3 to 5 days to monitor her outpatient hemoglobin via CBC. Hold her Eliquis for several days and would likely benefit from seeing her doctor prior to restarting. I do recommend that you follow-up with gastroenterology to continue work-up for your cirrhosis. 2. Chronic diastolic CHF/paroxysmal A-fib/HLD/history of cardiac pacemaker for bradycardia ? Blood pressures are stable ? Will hold her Eliquis but given that all her lesions were treated she can l ikely restart her Eliquis after discharge ? Continue with Lipitor ? Can restart her torsemide on discharge would recommend outpatient monitoring for her renal function DVT: SCDs Weight / BMI Weight Weight: 157 lb 14.392 oz Body Mass Index (BMI) 27.9 ABG / Lab / Microbiology Data Result Diagrams: 08/26/22 03:42 08/25/22 04:04 Laboratory: Laboratory Results - last 24 hr 08/26/22 03:42: WBC 6.0, RBC 3.51 L, Hgb 10.1 L, Hct 31.5 L, MCV 89.7, MCH 28.8, MCHC 32.1, RDW Std Deviation 51.3 H, RDW Coeff of Young 15.7 H, Plt Count 96 L, MPV 12.9 H, Immature Gran % (Auto) 0.200, Neut % (Auto) 66.3, Lymph % (Auto) 14.5 L, [place] % (Auto) 17.7 H, Eos % (Auto) 1.0, Baso % (Auto) 0.3, Absolute Neuts (auto) 4.0, Absolute Lymphs (auto) 0.87, Nucleated RBC % 0 Microbiology: Microbiology 08/23/22 00:20 Stool Stool Occult Blood (RANULFO) - Final Occult Blood Positive D/C Instructions Discharge Diet: Low fat / Low cholesterol Call your doctor if you observe: Fever of 101 or Higher, Shortness of breath, Dizziness, Fainting spells, Swelling in the ankles, Chest pain and Increased palpitations (irregular heartbeat) Meaningful Use Info Meaningful Use Diagnoses (Choose all that apply): None applicable Discharge Plan Admission Admit Date/Time: 08/23/22 14:39 Attending Provider: Josue Romeo Primary Care Provider: Mirza Singh Consulting Providers: Rikki Chappell ; Harjinder Rivas Instructions Additional Instructions / Restrictions: Follow-up with your PCP in 3 to 5 days to obtain outpatient blood work to monitor your anemia with a CBC. Also follow-up to obtain a BMP to monitor your renal function secondary to your diuretic use Discharge Orders/Prescriptions Prescriptions: New pantoprazole [Protonix] 40 mg tablet,delayed release (DR/EC) 40 mg PO BID Qty: 60 0RF Continued omeprazole 20 mg capsule,delayed release(DR/EC) 20 mg PO DAILY atorvastatin [Lipitor] 10 mg tablet 5 mg PO DAILY potassium chloride 10 mEq tablet extended release 10 meq PO BID Label Comments: T Rx Instructions: 3 times a week torsemide 60 mg Tablet 80 mg PO DAILY albuterol sulfate [Ventolin HFA] 90 mcg/actuation HFA aerosol inhaler 1 - 2 puff inhalation Q4H PRN PRN (Reason: Wheezing) Qty: 1 0RF alendronate 70 mg tablet 70 mg PO GOMEZ Held Eliquis 5 mg Tablet 5 mg PO BID Hold Instructions: Resume on 09/01/22. Referrals / Follow Up: Anthony Cardenas DO [Med Staff - Active Staff] - Within 1 Month Mirza Singh MD [Primary Care Provider] - 09/01/22 2:20 pm Disposition Disposition (needs filled in before D/C Order can be placed): Home, Self Care Charges/Coding Visit Charges Inpatient E&M: 83202 Disch Hosp >30min
== END 2022-08-26 18:24 | disposition home or self-care (01) | DRG 377 ==
LOC: ED 08-23 00:54 → PCU 08-23 01:53
PROVIDERS: Anesthesiology; Internal Medicine; Internal Medicine Gastroenterology; Admitting Provider Hospitalist; Emergency Provider Emergency Medicine; PCP Internal Medicine; Visit Provider Family Medicine
PROC: 0DJ08ZZ Inspection of Upper Intestinal Tract, Via Natural or Artificial Opening Endoscopic (ICD-10-PCS; CPT 43235; principal; 2022-08-25 15:55)
DX: K31.811 Angiodysplasia of stomach and duodenum with bleeding (principal); I85.11 Secondary esophageal varices with bleeding; N17.9 Acute kidney failure, unspecified; D62 Acute posthemorrhagic anemia; E87.1 Hypo-osmolality and hyponatremia; I50.32 Chronic diastolic (congestive) heart failure; D69.6 Thrombocytopenia, unspecified; I48.0 Paroxysmal atrial fibrillation; E86.0 Dehydration; E11.22 Type 2 diabetes mellitus with diabetic chronic kidney disease; N18.32 Chronic kidney disease, stage 3b; K74.60 Unspecified cirrhosis of liver; E87.6 Hypokalemia; E87.8 Other disorders of electrolyte and fluid balance, not elsewhere classified; E86.1 Hypovolemia; E78.5 Hyperlipidemia, unspecified; K44.9 Diaphragmatic hernia without obstruction or gangrene; E03.9 Hypothyroidism, unspecified; K21.9 Gastro-esophageal reflux disease without esophagitis; Z95.0 Presence of cardiac pacemaker; Z79.01 Long term (current) use of anticoagulants; Z79.899 Other long term (current) drug therapy
CPT/HCPCS: 36415; 76705; 80048; 80053; 82274; 83735; 84443; 85014; 85018; 85025; 85610; 85730; 86850; 86900; 86901; 86920; 93005; 94640; 97166; 99285; J7030; J7040; J7120; P9016; A4216

== ENCOUNTER 2022-12-23 11:36 | Day surgery (SDC) | payer MEDICARE, OTHER, SELFPAY ==
[2022-12-23] VITALS (8 sets, daily range): BP systolic 88–114; BP diastolic 50–59; PULSE 60–65; RESP 16–18; TEMP 36.5–36.8; O2SAT 94–100; BMI 25.0
[2022-12-23] MEDS: Lactated Ringers 1,000 ML 15 ML IV (12:11)
--- NOTE | 2022-12-23 12:30 | EGD_PTH ---
PATIENT: CARMELITA KASPER LOC: EN U#:[id number] AGE/SX: 77/F ROOM: RE12/23/[address]: Dr. Anthony Cardenas DO : 1945 BED: DIS: 12/23/2022 SPEC #: [id number] RECD: 12/23/22 16:32 STATUS: ANGELO JOHN #: [id number] VANDANA: 12/23/22 12:[address]: Anthony Cardenas DEPT: SURGICAL PATHOLOGY RECD BY: Sophie Stauffer ENTERED: 12/24/22 09:22 SP TYPE: EGD BIOPSY [facility] DR: Dr. Mirza Singh MD Tissues: A - Gastric mucous membrane B - Esophagus, NOS Procedures: Surgery Specimen Level IV HEADER OPERATION: EGD ([facility] [place]) PRE-OP DIAGNOSIS: Cirrhosis TISSUE SUBMITTED: A - Gastric body biopsy, B - Proximal esophagus papilloma biopsy MICROSCOPIC DIAGNOSIS A. Gastric body, biopsy: Mild gastritis. See microscopic description and comment. B. Proximal esophagus papilloma, biopsy: Squamous papilloma. SJ:mane 12/25/2022 COMMENT A. The results of immunohistochemistry for Helicobacter pylori will be reported separately ([id number]). MICROSCOPIC DESCRIPTION Slides are reviewed. A. The specimen shows fragments of gastric mucosa with chronic inflammatory cell infiltrates in the lamina propria consisting of lymphocytes and plasma cells, consistent with mild chronic gastritis. GROSS DESCRIPTION A - Received in fixative is one container labeled with the patient's name and designated gastric body biopsy. The specimen consists of two irregular fragments of light mars soft tissue that in aggregate measure 0.7 x 0.3 x 0.1 cm. The specimen is totally submitted in one cassette. B - Received in fixative is one container labeled with the patient's name and designated proximal esophagus. The specimen consists of one irregular fragment of light mars soft tissue that measures 0.5 x 0.5 x 0.1 cm. The specimen is totally submitted in one cassette. / AM:mane 12/25/2022 TC:1 CPT: 65597 x2
--- NOTE | 2022-12-23 12:30 | IMM_PTH ---
PATIENT: CARMELITA KASPER LOC: EN U#:[id number] AGE/SX: 77/F ROOM: RE12/23/[address]: Dr. Anthony Cardenas DO : 1945 BED: DIS: 12/23/2022 SPEC #: [id number] RECD: 12/24/22 10:21 STATUS: ANGELO REQ #: [id number] VANDANA: 12/23/22 12:[address]: Anthony Cardenas DEPT: IMMUNOHISTOCHEMISTRY RECD BY: Laverne Morris ENTERED: 12/24/22 10:22 SP TYPE: IMMUNO OTHR DR: Dr. Mirza Singh MD Tissues: A - Stomach, NOS Procedures: H Pylori (initial) PHYSICIAN & INSTITUTION [place] [id number] SPECIMEN INFORMATION: Tissue Source: A - Gastric body Clinical Info: Cirrhosis Specimen Number: [id number] CPT code: 81012 METHODOLOGY: Deparaffinized sections of prefer/formalin-fixed tissue or PAP/DQ stained slides are incubated with monoclonal/polyclonal antibodies/oligonucleotide probes. Localization is made via biotin free immunoperoxidase method. Appropriate controls are performed and reacted as expected. Results on target cell population are indicated in the following table: RESULTS: ANTIBODY / CLONE RESULT Block A H Pylori (polyclonal) negative These tests were developed and their performance characteristics determined by [facility]. They may not have been cleared or approved by the U.S. Food and Drug Administration. The FDA has determined that such clearance or approval is not necessary. The above immunohistochemical/dualISH markers are ordered and reviewed by the Pathologist. INTERPRETATION: A. Gastric body, biopsy: Negative for Helicobacter pylori organisms. SJ:mane 12/25/2022
--- NOTE | 2022-12-23 12:59 | PCM.HP.BLA ---
History and Physical Date of Admission: 12/23/22 77 F who presents to the office today for *[facility] [place] hospitalization 08.23.22-08.26.22. [facility] [place] ED presentation for low potassium noted on [facility] bloodwork with muscle cramping and diuretic use. Potassium 2.2, placed on infusion and cardiac specialist and admitted for management. GI consulted 08.23.22 for management of possible GIB, hgb 6.6 with elevated BUN/creatinine ratio; EGD performed and hgb stabilized. ? Stool 08.23.22 occult + US RUQ 08.23.22 hepatic measurement 12.8cm with heterogeneous echotexture and nodular contour without lesion. Mild perihepatic ascites; renal cyst in Morison?s pouch. ? EGD 08.25.2223 Grade II esophageal varices of lower third of esophagus, 5mm, banded; small hiatal hernia; three bleeding AVM in duodenum, heater probe. OV 09.11.22 reports she is getting better with time since hospitalization; weakness and SOB are improving, she continues to use a cane for balance. No difficulty with confusion or sleep disturbance. Would like clearance to restart her Eliquis for management of AFib. Cirrhosis is a new diagnosis to her; no family history of cirrhosis or alcoholism. Is DMII she is unsure of her A1c and is not on medication for this; manages with diet control. ? MELD? Plt? INR? AFP 08.23.22 27? 91? 2.0 ROS Const Constitutional: No anorexia, fatigue, fever(s), weight change or sleep problems Eyes Eyes: No change in vision ENT ENT: No abnormal hearing, difficulty swallowing, mouth lesions, tongue swelling or throat swelling Resp Respiratory: No cough or shortness of breath Cardio Cardiology: No chest pain at rest, chest pain with exertion, shortness of breath or dyspnea on exertion Gastro GI: No difficulty swallowing Genitourinary-Female: No difficulty urinating or burning urination Musc Musculoskeletal: No joint pain, joint swelling, muscle weakness or decreased muscle mass Skin Skin: No hair loss in leg, yellowing of the eye, itchy eyes, rash, skin ulcer or skin swelling Neuro Neurology: No abnormal hearing, abnormal movements, confusion, unsteady gait/balance or memory loss Psych Psychiatric: No anxiety, No confusion and No memory loss Endo Endocrine: No fatigue or weight change Aller/Imm Allergy/Immunologic: No itchy eyes, throat swelling or tongue swelling Brayden/Lymp Hematologic/Lymphatic: No easy bleeding, easy bruising or enlarged lymph nodes Exam Const General: cooperative and comfortable Nutritional Appearance: average body habitus and well nourished HENCT Head: normal to inspection Ears: hearing grossly normal bilaterally Nose: external nose normal Face and sinus: normal facial exam Mouth: oral mucosae normal Throat: posterior oropharynx normal Eyes General: appearance normal, both eyes and all related structures Neck Neck: normal visual inspection Chest Chest palpation & inspection: normal inspection of the chest and normal palpation of entire chest wall Resp Effort & Inspection: normal respiratory effort Auscultation: Bilateral: Clear to Auscultation Cardio Palpation: normal PMI Rate: regular rate Rhythm: regular rhythm GI Inspection: normal to inspection Auscultation: normal bowel sounds Percussion: normal to percussion Palpation: no hepatosplenomegaly Skin General: no rashes or lesions noted Neuro General: patient alert Extrem General: normal to inspection Psych Affect: normal affect Quality Reporting Tobacco Screening ([facility] 138) Smoking Status: Never smoker Assessment and Plan Assessment and Plan (1) Cirrhosis: Status: Chronic Plan: 77 F who presents with progressive shortness of breath. She has a history of? heart failure with preserved ejection fraction; permanent pacemaker implantation; paroxysmal A-fib on Eliquis ; and chronic hypokalemia who presents to the emergency department with low potassium and abnormal.? Patient's check blood potassium because she is on Torsemide.? She reported that her bandage winding machine operator in consultation with a urologist prescribed the torsemide. I was called to her because of a hemoglobin of 6.6.? Her INR is pending.? She also had elevated BUN/creatinine ratio in the ED.? On her blood work it looks as if her hemoglobin has been slowly trending down.? Her last normal hemoglobin was back in 2020 with 15.4.? She said that she has had colonoscopy approximately 5 years ago for screening purposes and it was normal.? She did admit to 1 episode of mildly dark stools.? She has.? A history of chronic thrombocytopenia. I performed a upper endoscopy and colonoscopy while she was in the hospital. She was discovered to have grade 2 distal esophageal varices without recent bleeding stigmata. These were banded. She also discovered to have portal gastropathy, mild gastric antral vascular ectasia and 2 angiodysplastic lesions that were treated endoscopically. She underwent a colonoscopy and had 2 adenomatous polyps that were removed from the ascending colon and sigmoid colon. She had to angiodysplastic lesions on the right side of the colon that had bleeding stigmata and were treated with heater probe. She has been doing well and regarding her new diagnosis of liver disease. When she was in the hospital she had a meld of 28. Her current meld as of 08/25/2022 is 23. She is having a bowel movement once a day. She does struggle with some lower extremity swelling and some intermittent abdominal distention. She is on torsemide along with potassium replacement. It was suggested that she go on Aldactone by her bandage winding machine operator. She is off of Eliquis therapy. Her last INR was 1.4 that I suspect is from her liver disease. Her last bilirubin was 4.2 which is down from 6.8. She has not had repeat LFTs and a recalculation of her meld. She denies any sleep disturbance except she is sleeping a little bit more soundly. She denies any itching she denies any rash she denies any fevers or chills. Her weight has been stable. Recommendations: 1. Hepatic encephalopathy. Recommend lactulose 20 cc p.o. twice daily and possible addition of Xifaxan in the future 2. The variceal surveillance. We will schedule her for repeat upper endoscopy in approximately 4 months. We had discussed possibly going on beta-nata therapy for variceal prevention. However she has episodes of low blood pressure. 3. Anemia-secondary to GI bleed and bone marrow suppression in the setting of cirrhosis. Recommend to check iron studies, hemoglobin 4. Ascites-she had mild periportal ascites which I think is being controlled with current torsemide therapy 5. Thrombocytopenia secondary to cirrhosis monitor platelet count. (2) GIB (gastrointestinal bleeding): Status: Resolved Medications: New lactulose 20 grams (30 mL) PO BID 3,000 mL 2RF I have examined the patient and the H&P has been reviewed. There are no clinical changes since date of exam.
--- NOTE | 2022-12-23 13:32 | OP.EGD_ITS ---
Patient Name: Kendra Kate Procedure Date: 12/23/2022 1:01 PM Date of : 1945 Age: 77 Procedure: Upper GI endoscopy Indications: For therapy of esophageal varices Providers: Anthony Cardenas DO Referring MD: Anthony Cardenas DO Medicines: Monitored Anesthesia Care Patient Profile: This is a 77 year old female. Refer to note in patient chart for documentation of history and physical. Patient has symptoms of acute heartburn and acute vomiting. Complications: No immediate complications. Procedure: Pre-Anesthesia Assessment: - Prior to the procedure, a History and Physical was performed, and patient medications and allergies were reviewed. The risks and benefits of the procedure and the sedation options and risks were discussed with the patient. All questions were answered and informed consent was obtained. Patient identification and proposed procedure were verified by the physician in the pre-procedure area. Mental Status Examination: alert and oriented. Airway Examination: normal oropharyngeal airway and neck mobility. Respiratory Examination: clear to auscultation. CV Examination: normal. Prophylactic Antibiotics: The patient does not require prophylactic antibiotics. Prior Anticoagulants: The patient has taken no previous anticoagulant or antiplatelet agents. After reviewing the risks and benefits, the patient was deemed in satisfactory condition to undergo the procedure. The anesthesia plan was to use monitored anesthesia care (MAC). Immediately prior to administration of medications, the patient was re-assessed for adequacy to receive sedatives. The heart rate, respiratory rate, oxygen saturations, blood pressure, adequacy of pulmonary ventilation, and response to care were monitored throughout the procedure. The physical status of the patient was re-assessed after the procedure. After obtaining informed consent, the endoscope was passed under direct vision. Throughout the procedure, the patient's blood pressure, pulse, and oxygen saturations were monitored continuously. The gastroscope was introduced through the mouth, and advanced to the duodenal bulb. The upper GI endoscopy was accomplished without difficulty. The patient tolerated the procedure well. Scope In: 1:17:50 PM Scope Out: 1:20:48 PM Total Procedure Duration Time 0 hours 2 minutes 58 seconds Findings: The examined esophagus was normal. One 4 mm polyp with no bleeding was found 20 to 21 cm from the incisors. The polyp was removed with a cold snare. Resection and retrieval were complete. Verification of patient identification for the specimen was done. Estimated blood loss was minimal. Mild portal hypertensive gastropathy was found in the stomach. Biopsies were taken with a cold forceps for histology. Verification of patient identification for the specimen was done. Estimated blood loss was minimal. No gross lesions were noted in the first portion of the duodenum. Impression: - Normal esophagus. - Esophageal polyp(s) were found. Resected and retrieved. - Portal hypertensive gastropathy. Biopsied. - No gross lesions in the first portion of the duodenum. Recommendation: - Discharge patient to home. - Resume previous diet. - Continue present medications. Procedure Code(s): --- Professional --- 51554, Esophagogastroduodenoscopy, flexible, transoral; with removal of tumor(s), polyp(s), or other lesion(s) by snare technique 75429, 59, Esophagogastroduodenoscopy, flexible, transoral; with biopsy, single or multiple CPT copyright 2017 [employer]. All rights reserved. The codes documented in this report are preliminary and upon director of science review may be revised to meet current compliance requirements. Anthony Cardenas DO 12/23/2022 1:32:11 PM This report has been signed electronically. Number of Addenda: 0 Note Initiated On: 12/23/2022 1:01 PM
--- NOTE | 2022-12-23 13:33 | OP.CCLET_ITS ---
12/23/2022 Mirza Singh [address] [place] [address] Re : Upper GI endoscopy procedure for Kendra Kate Dear Dr. Singh This procedure was performed on Friday, December 23, 2022. My impressions and recommendations are as follows: Impressions : - Normal esophagus. - Esophageal polyp(s) were found. Resected and retrieved. - Portal hypertensive gastropathy. Biopsied. - No gross lesions in the first portion of the duodenum. Recommendations : - Discharge patient to home. - Resume previous diet. - Continue present medications. My findings are described in the full procedure note, which is enclosed. If I can be of further assistance, please feel free to contact me at . Sincerely, Anthony Cardenas, 12/23/2022 1:32:11 PM This report has been signed electronically.
== END 2022-12-23 14:11 | disposition home or self-care (01) ==
LOC: EN 11:38 → AC 11:39
PROVIDERS: PCP Internal Medicine; Referring Provider Internal Medicine Gastroenterology; Visit Provider Internal Medicine Gastroenterology
PROC: 0DJ08ZZ Inspection of Upper Intestinal Tract, Via Natural or Artificial Opening Endoscopic (ICD-10-PCS; CPT 43235; principal; 2022-12-23 12:25)
DX: D13.0 Benign neoplasm of esophagus (principal); K76.6 Portal hypertension; I85.00 Esophageal varices without bleeding; K74.60 Unspecified cirrhosis of liver; I50.32 Chronic diastolic (congestive) heart failure; I49.5 Sick sinus syndrome; I48.0 Paroxysmal atrial fibrillation; K31.89 Other diseases of stomach and duodenum; K29.70 Gastritis, unspecified, without bleeding; K21.9 Gastro-esophageal reflux disease without esophagitis; E78.00 Pure hypercholesterolemia, unspecified; Z95.0 Presence of cardiac pacemaker; Z79.899 Other long term (current) drug therapy
CPT/HCPCS: 43239; 43251; 88305; 88342; J7120; J2405

== ENCOUNTER → 2023-02-20 | Outpatient (CLI) | payer MEDICARE, OTHER, SELFPAY ==
--- NOTE | 2023-02-20 11:10 | RAD_ITS ---
STUDY: X-RAY CHEST REASON FOR EXAM: Female, 78 years old. Shortness of breath. TECHNIQUE: Frontal and lateral views of the chest. COMPARISON: Chest dated May 27, 2022. FINDINGS: Cardiomegaly, dual lead cardiac pacer, aortic tortuosity, prominent central pulmonary arteries and mild diffuse interstitial prominence, all relatively unchanged. Diffuse thoracic and lumbar osteopenia with mild diffuse spondylosis. No abnormality of the visualized soft tissue structures of the upper abdomen. RAD/Chest PA and Lateral IMPRESSION: Stable chest with no acute or active cardiopulmonary disease. Electronically Signed: Bolivar Kasper MD at 12:54 EDT ,
[2023-02-20 11:12] LABS: Absolute Neutrophil Count 4.4 X10^3/uL (2.0-7.7); Basophil# 0.03 X10^3/uL; Basophil% 0.5 % (0-1); Eosinophil# 0.05 X10^3/uL; Eosinophils% 0.8 % (0-5); Hematocrit 29.8 % (37-47); Hemoglobin 9.3 g/dL (12.0-15.0); Lymphocyte % 12.4 % (19-41); Mean Corp Hgb Conc 31.2 g/dL (32-36); Mean Corpuscular Hgb 28.6 pg (27.0-32.0); Mean Corpuscular Volume 91.7 fL (81-99); Mean Platelet Vol. 12.5 fl (6.2-12.0); Monocyte# 1.16 X10^3/uL; NRBC Flagged by Analyzer 0 % (0-5); Neutrophil # 4.37 X10^3/uL (2.7-7.7); POSITIVE COUNT YES; Platelet Count 95 K/mm3 (150-450); RBC Distribution Width CV 16.4 % (11.6-14.6); RBC Distribution Width SD 55.6 fl (35.1-43.9); Red Blood Count 3.25 M/mm3 (4.2-5.4); White Blood Count 6.4 K/mm3 (4.4-11.0)
[2023-02-20 11:15] LABS: Erythrocyte Sedimentation Rate 62 mm/hr (0-30)
[2023-02-20 11:20] LABS: International Normalized Ratio 1.3; Prothrombin Time (Protime)PT. 15.9 SECONDS (11.7-14.9)
[2023-02-20 11:33] LABS: BNP,B-Type NATRIURETIC PEPTIDE 248.8 pg/mL (0-100)
[2023-02-20 11:36] LABS: ALB/GLOB Ratio 0.7 RATIO (0.9-2.4); AST(SGOT) 30 U/L (15-37); Alanine Aminotransfer ALT/SGPT 29 U/L (13-56); Albumin, Serum 3.3 g/dL (3.2-5.0); Alkaline Phosphatase 121 U/L (45-117); Anion Gap 4 (5-15); BUN 51 mg/dL (7-18); BUN/Creat Ratio 23.2 RATIO (10-20); CRP 6.13 mg/L (0.0-3.0); Calcium,Total 9.6 mg/dL (8.5-10.1); Chloride 97 mmol/L (98-107); EST Glomerular Filtration Rate 23 mL/min (>60); Est Glom Filt Rate - Afr Amer 28 mL/min (>60); Globulin 4.5 g/dL (2.2-4.2); Glucose 118 mg/dL (74-106); LDH 286 U/L (84-246); Potassium 3.4 mmol/L (3.5-5.1); Protein, Total 7.8 g/dL (6.4-8.2); Sodium Level 132 mmol/L (136-145)
[2023-02-21 04:07] LABS: AFP, Tumor Marker < 1.8 ng/mL (0.0-9.2)
== END | disposition home or self-care (01) ==
LOC: LAB 10:41
PROVIDERS: PCP Internal Medicine; Referring Provider Internal Medicine Gastroenterology; Visit Provider Internal Medicine Gastroenterology
DX: I48.0 Paroxysmal atrial fibrillation (principal); K74.60 Unspecified cirrhosis of liver; I50.30 Unspecified diastolic (congestive) heart failure; R06.02 Shortness of breath
CPT/HCPCS: 36415; 71046; 80053; 82105; 82140; 83615; 83880; 85025; 85610; 85652; 86140

== ENCOUNTER 2023-08-04 09:29 | Outpatient (CLI) | payer MEDICARE, OTHER, SELFPAY ==
--- NOTE | 2023-08-04 09:34 | US_ITS ---
STUDY: ABDOMINAL ULTRASOUND - RIGHT UPPER QUADRANT; ELASTOGRAPHY REASON FOR VISIT: Female, 78 years old. Cirrhosis. TECHNIQUE: Ultrasound evaluation of the right upper quadrant was performed with real-time and static la-scale imaging. Point quantification shear wave elastography was performed (Pinpoint MD). TECHNICAL QUALITY: Limited. Examination limited by bowel gas. COMPARISON: Comparison is made with prior study dated August 23, 2022. FINDINGS: Liver: The liver measures 14 cm. There is increased echogenicity consistent with fatty infiltration. The bile ducts are within normal limits. There is hepatic color flow. The direction of portal flow is hepatopetal. There is no demonstrated mass lesion. Median liver stiffness measured 13.4 kPa. Gallbladder: The patient is status post cholecystectomy. Common Bile Duct (C.B.D.): The common bile duct measures 1.8 mm. Pancreas: There is normal echogenicity of the visualized pancreas. There is no demonstrated pancreatic mass or cyst. Right Kidney: There is atrophy of the right kidney. The right kidney measures 7.4 cm x 4.6 cm x 3.5 cm. Normal renal cortex. The right cortex measures 1.2 cm. There is no demonstrated renal mass or cyst. There is no right hydronephrosis. Small amount of free fluid in Morison''s pouch. US/ABD Complete w/ Elastography IMPRESSION: 1. Liver stiffness measures 13.4 kPa compatible with F3-F4 (Moderate to severe liver fibrosis) Metavir score. Electronically Signed: Renato Islas MD at 13:56 EDT Reading Location ID and State: [id number] / [place]
[2023-08-04 11:21] LABS: Absolute Lymphocyte Count 0.72 X10^3/uL (0.83-4.51); Absolute Neutrophil Count 4.2 X10^3/uL (2.0-7.7); Basophil# 0.04 X10^3/uL; Basophil% 0.7 % (0-1); Eosinophils% 3.3 % (0-5); Hematocrit 28.5 % (37-47); Hemoglobin 9.2 g/dL (12.0-15.0); Lymphocyte # 0.72 X10^3/ul (0.83-4.51); Lymphocyte % 11.9 % (19-41); Mean Corp Hgb Conc 32.3 g/dL (32-36); Mean Corpuscular Hgb 30.7 pg (27.0-32.0); Mean Platelet Vol. 11.4 fl (6.2-12.0); Monocyte# 0.84 X10^3/uL; Monocyte% 13.9 % (0-10); NRBC Flagged by Analyzer 0 % (0-5); Neutrophil # 4.22 X10^3/uL (2.7-7.7); Neutrophil % 69.9 % (47-70); Platelet Count 110 K/mm3 (150-450); RBC Distribution Width CV 17.3 % (11.6-14.6); RBC Distribution Width SD 60.1 fl (35.1-43.9)
[2023-08-04 11:37] LABS: International Normalized Ratio 1.3; Prothrombin Time (Protime)PT. 16.3 SECONDS (11.7-14.9)
[2023-08-04 11:44] LABS: Anion Gap 9 (5-15); BUN 55 mg/dL (7-18); BUN/Creat Ratio 22.4 RATIO (10-20); CRP 4.81 mg/L (0.0-3.0); Calcium,Total 9.8 mg/dL (8.5-10.1); Chloride 97 mmol/L (98-107); Cholesterol 95 mg/dL (200); Creatinine, Serum 2.45 mg/dL (0.55-1.02); EST Glomerular Filtration Rate 20 mL/min (>60); Est Glom Filt Rate - Afr Amer 25 mL/min (>60); Ferritin 483 ng/mL (8-252); Glucose 115 mg/dL (74-106); High Density Lipoprotein 73 mg/dL; Iron 65 ug/dL (50-170); Iron Binding Capacity,Total 337 ug/dL (250-450); LDH 275 U/L (84-246); PERCENT IRON SATURATION 19.3 % (15.0-55.0); Potassium 3.7 mmol/L (3.5-5.1); Sodium Level 131 mmol/L (136-145); Triglycerides 30 mg/dL; Very Low Density Lipoprotein 6 mg/dL (5-40)
[2023-08-04 11:49] LABS: Hemoglobin A1c 6.1 % (3.8-5.6)
[2023-08-06 05:07] LABS: AFP, Tumor Marker 3.1 ng/mL (0.0-9.2); Transferrin 254 mg/dL (192-364)
== END 2023-08-04 23:59 | disposition home or self-care (01) ==
LOC: US 09:31
PROVIDERS: PCP Internal Medicine; Referring Provider Internal Medicine; Visit Provider Internal Medicine
DX: K74.60 Unspecified cirrhosis of liver (principal); I50.30 Unspecified diastolic (congestive) heart failure; K92.2 Gastrointestinal hemorrhage, unspecified; R07.9 Chest pain, unspecified
CPT/HCPCS: 36415; 76700; 76981; 80048; 80061; 82105; 82728; 83036; 83540; 83550; 83615; 84466; 85025; 85610; 86140